=== PATIENT | female | born 1935 ===

== ENCOUNTER 2018-03-24 06:46 | Inpatient (IN) | payer OTHER ==
[~2018-03-24] VITALS: Ht 160 cm; Wt 72.1 kg
--- NOTE | 2018-03-24 06:56 | ED GENERAL ADULT ---
History of Present Illness General Chief Complaint: Altered Mental Status Stated Complaint: ALTERED MENTAL STATUS, HYPOGLYCEMIA Source: patient, old records, EMS, W10 Exam Limitations: no limitations Vital Signs & Intake/Output Vital Signs & Intake/Output Vital Signs Date Time Temp Pulse Resp B/P B/P Pulse O2 O2 Flow FiO2 Mean Ox Delivery Rate 03/24 1047 98.2 59 20 112/74 97 Room Air 03/24 0906 96 Room Air 03/24 0906 59 18 133/60 96 Room Air 03/24 0654 97.3 93 18 145/65 98 Room Air Allergies Coded Allergies: No Known Allergies (03/24/18) Triage Nurses Notes Reviewed? yes HPI: Patient brought in from the group home after being found unresponsive. Patient was in a wheelchair at 3:00 in the morning and was finally convinced to go to bed. Everything was normal at that time. This morning at 6 AM they noticed that she was very hard to arouse and it appeared that she had a left sided weakness. EMS was contacted. Patient's fingerstick was 29. Patient received D10 and her sugar increased. As her sugar increased her symptoms resolved. In route to the hospital she had one vomitus of green bile-like fluid. Patient did receive Lantus last night. Patient has no current complaints. (Francisco Javier MCCAULEY,Nilay Jaeger) Reconcile Medications Cholecalciferol (Vitamin D3) (Vitamin D3) 1,000 UNIT CAPSULE 1 CAP PO Mo VITAMIN SUPPORT (Reported) Docusate Sodium (Colace) 100 MG CAPSULE 1 CAP PO BID STOOL SOFTENER (Reported ) Escitalopram Oxalate (Lexapro) 10 MG TABLET 1 TAB PO DAILY MENTAL HEALTH ( Reported) Furosemide 20 MG TABLET 1 TAB PO Q48 WATER RETENTION (Reported) Furosemide 40 MG TABLET 1 TAB PO Q48 WATER RETENTION (Reported) Insulin Detemir (Levemir Flextouch) 100 UNIT/ML (3 ML) INSULN.PEN 16 UNITS SC QPM DIABETES (Reported) Ipratropium/Albuterol Sulfate (Iprat-Albut 0.5-3(2.5) MG/3 Ml) 0.5 MG-3 MG (2.5 MG BASE)/3 ML AMPUL.NEB 1 INH PO 4 TIMES/DAY BREATHING PROBLEMS (Reported) Metoprolol Tartrate 25 MG TABLET 0.5 TAB PO BID HEART (Reported) Pantoprazole Sodium 40 MG TABLET.DR 1 TAB PO BID GI (Reported) Rosuvastatin Calcium (Crestor) 20 MG TABLET 1 TAB PO QPM CHOLESTEROL ( Reported) (Andrew Tovar DO) Past History Travel History Traveled to [place] past 21 day No Medical History Any Pertinent Medical History? see below for history Cardiovascular: CHF, hypertension Renal: chronic kidney disease Endocrine: diabetes Blood Disorders: anemia Surgical History Surgical History: non-contributory Psychosocial History Tobacco Use: Quit >30 days ago ETOH Use: denies use Illicit Drug Use: denies illicit drug use Family History Hx Contributory? No (Francisco Javier MCCAULEY,Nilay Jaeger) Review of Systems Review of Systems Constitutional: Reports: no symptoms. EENTM: Reports: no symptoms. Respiratory: Reports: no symptoms. Cardiovascular: Reports: no symptoms. GI: Reports: no symptoms. Genitourinary: Reports: no symptoms. Musculoskeletal: Reports: no symptoms. Skin: Reports: no symptoms. Neurological/Psychological: Reports: no symptoms. Hematologic/Endocrine: Reports: no symptoms. Immunologic/Allergic: Reports: no symptoms. All Other Systems: Reviewed and Negative (Francisco Javier MCCAULEY,Nilay Jaeger) Physical Exam Physical Exam General Appearance: well developed/nourished, alert, awake, anxious Head: atraumatic, normal appearance Eyes: Bilateral: PERRL, EOMI. Ears, Nose, Throat: normal pharynx, normal ENT inspection Neck: normal inspection, supple, full range of motion Respiratory: normal breath sounds, chest non-tender, no respiratory distress, lungs clear Cardiovascular: normal peripheral pulses, bradycardia, systolic murmur Gastrointestinal: normal bowel sounds, soft, non-tender, no organomegaly Back: normal inspection Extremities: pedal edema Neurologic/Psych: no motor/sensory deficits, awake, alert Skin: intact, normal color, warm/dry Core Measures ACS in differential dx? Yes CVA/TIA Diagnosis: No Sepsis Present: No Sepsis Focused Exam Completed? No (Francisco Javier MCCAULEY,Nilay Jaeger) Progress Differential Diagnoses I considered the following diagnoses in my evaluation of the patient: [ Hypoglycemia, CVA, electrolyte abnormality, AMI, UTI] Plan of Care: Orders Procedure Date/time Status Heart Healthy Diet 03/24 L Active TROPONIN LEVEL 03/24 1011 Complete EKG 03/24 1011 Active EKG 03/24 0838 Active Telemetry/Customs Broker 03/24 0651 Active URINALYSIS 03/24 651 Active TROPONIN LEVEL 03/24 651 Complete COMPREHENSIVE METABOLIC PANEL 03/24 651 Complete CBC WITHOUT DIFFERENTIAL 03/24 651 Complete EKG 03/24 651 Active Laboratory Tests 03/24/18 1035: Troponin I 0.08 03/24/18 0720: Anion Gap 15, Estimated GFR 21 L, BUN/Creatinine Ratio 26.4 H, Glucose 210 H, Calcium 8.3 L, Total Bilirubin 1.7 H, AST 27, ALT 25, Alkaline Phosphatase 129 H, Troponin I 0.08, Total Protein 7.7, Albumin 3.5, Globulin 4.2, Albumin/ Globulin Ratio 0.8 L, CBC w Diff NO MAN DIFF REQ, RBC 3.28 L, MCV 91.3, MCH 30.4, MCHC 33.3, RDW 18.0 H, MPV 6.7 L, Gran % 85.8 H, Lymphocytes % 5.8 L, Monocytes % 8.2, Eosinophils % 0, Basophils % 0.2, Absolute Granulocytes 5.6, Absolute Lymphocytes 0.4 L, Absolute Monocytes 0.5, Absolute Eosinophils 0, Absolute Basophils 0 Diagnostic Imaging: Viewed by Me: Radiology Read, CT Scan. Discussed w/RAD: Radiology Read, CT Scan. Initial ED EKG: PENDING Hand-Off Endorsed To: Andrew Tovar DO Endorsed Time: 0700 Pending: CT, labs, Xray (Francisco Javier MCCAULEY,Nilay Jaeger) Differential Diagnoses I considered the following diagnoses in my evaluation of the patient: (Andrew Tovar DO) Departure Departure Disposition: STILL A PATIENT Condition: Stable Referrals: Davey Garcia MD (PCP/Family) Departure Forms: Customer Survey General Discharge Information (Nilay Mcintyre MD) Departure Comments CT head IMPRESSION: 1. No acute intracranial abnormalities. No intracranial hemorrhage. No acute infarcts visualized. 2. Mild white matter chronic small vessel ischemic disease. 3. Monckeberg vascular calcifications of the intracranial segments of the internal carotid arteries which may represent the sequela of long-standing diabetes mellitus. 4. Extracranial, mild scattered intravenous gas which may represent iatrogenically introduced intravenous gas. Similar findings are a frequently encountered asymptomatic finding following initiation of peripheral intravenous access. DICTATED BY: Macho Crain MD DATE/TIME DICTATED:03/24/18715 GLOVE FACTORY SEWER:GONZALO DATE/TIME TRANSCRIBED:03/24/18715 CONFIDENTIAL, DO NOT COPY WITHOUT APPROPRIATE AUTHORIZATION. <Electronically signed in Other Vendor System> SIGNED BY: Macho Crain MD 03/24/18725 EKG revealed atrial bigeminy. The patient was seen by her executive asst Dr. Lizama who reviewed EKGs and evaluated the patient personally. He agrees with the interpretation of atrial bigeminy. 10 AM Patient remains asymptomatic. There is no focal weakness. Her symptoms resolved with intravenous glucose. She has a gag reflex and tolerates food without difficulty. Her first troponin was 0.08 will repeat a second troponin and monitor her neurological status if no change she will be discharged back to the SNF. 03/24/18 11:14 AM Patient is pending repeat troponin. She was signed out to Dr. Fierro at 11:14 AM (Andrew Tovar DO) Departure Clinical Impression Primary Impression: Dysrhythmia Qualifiers: Arrhythmia type: unspecified cardiac arrhythmia Qualified Code: I49.9 - Cardiac arrhythmia, unspecified Secondary Impressions: Anasarca, Hypoglycemia Admission Note Spoke With: Dorinda MCCAULEY,Mukesh Documentation of Exam: Documentation of any treatments & extenuating circumstances including Concerns Regarding Discharge (functional status, medication knowledge or non-compliance, living conditions, etc.) that warrant an admission rather than observation: Patient presents after an episode of altered mental status secondary to hypoglycemia. Her evaluation also shows the possibility of an atrial dysrhythmia on EKG. It is unclear if this patient's altered mental status wasn' t fact secondary to hypoglycemia or a dysrhythmia. I do not feel she is a good candidate for outpatient management under the circumstances she could in fact have additional altered mental status episodes placing her at high risk of falling, injury and an inability to follow through with outpatient treatment. I feel she now requires hospitalization for continuous cardiac monitoring, cardiology consultation, consideration of echocardiogram, serial EKGs and troponins and consideration for endocrinology consultation given hypoglycemic episode. If the patient is in fact in atrial fibrillation she will require anticoagulation. Patient's medications should be reviewed and adjusted accordingly. Given this patient's advanced age and medical comorbidities I feel she'll require a multiple day hospitalization. (Sri MCCAULEY,Andrew Navarro) Critical Care Note Critical Care Note Critical Care Time: non-applicable (Francisco Javier MCCAULEY,Nilay Jaeger)
--- NOTE | 2018-03-24 07:26 | CT SCAN REPORT ---
EXAMINATION: CT HEAD WITHOUT CONTRAST CLINICAL INFORMATION: Left-sided weakness. Resolved. Hypoglycemic. COMPARISON: None TECHNIQUE: Contiguous axial imaging was performed from the skull base to vertex without intravenous administration of contrast. DLP: 681 mGy-cm FINDINGS: Moderate diffuse commensurate prominence of ventricles and sulci is noted. Mild patchy periventricular white matter hypodensities are visualized and are most consistent with chronic small vessel ischemic changes. No intracranial hemorrhage, tumors or acute infarcts are visualized. Punctate, benign calcification is noted within the right globus pallidus. Partial visualization is made of a 1.5 cm diameter rounded focus within the right maxillary sinus most likely representing partial visualization of mucosal retention cyst. Scattered gas is present in the right infratemporal fossa region and right temporal region and may represent benign iatrogenic intravenous gas. Bilateral ocular lens extractions are visualized. The mastoid air cells and middle ear cavities are clear. Tram track like Monckeberg type vascular calcifications are noted in the cavernous portion of the internal carotid arteries IMPRESSION: 1. No acute intracranial abnormalities. No intracranial hemorrhage. No acute infarcts visualized. 2. Mild white matter chronic small vessel ischemic disease. 3. Monckeberg vascular calcifications of the intracranial segments of the internal carotid arteries which may represent the sequela of long-standing diabetes mellitus. 4. Extracranial, mild scattered intravenous gas which may represent iatrogenically introduced intravenous gas. Similar findings are a frequently encountered asymptomatic finding following initiation of peripheral intravenous access.
[2018-03-24 07:29] LABS: ABSOLUTE BASOPHIL COUNT 0 /CUMM (0.0-0.2); ABSOLUTE EOSINOPHIL COUNT 0 /CUMM (0.0-0.7); ABSOLUTE GRANULOCYTE CT 5.6 /CUMM (1.4-6.5); ABSOLUTE LYMPH COUNT 0.4 /CUMM (1.2-3.4); ABSOLUTE MONOCYTE COUNT 0.5 /CUMM (0.10-0.60); BASOPHIL % 0.2 % (0.0-2.0); EOSINOPHIL % 0 % (0-5); GRANULOCYTE % 85.8 % (42.2-75.2); MEAN CORPUSCULAR HGB 30.4 PG (27.0-31.0); MEAN CORPUSCULAR HGB CONC 33.3 G/DL (33.0-37.0); MEAN CORPUSCULAR VOLUME 91.3 FL (81.0-99.0); MEAN PLATELET VOLUME 6.7 FL (7.4-10.4); PLATELET COUNT 189 /CUMM (130-400); RED BLOOD CELL CT 3.28 /CUMM (4.20-5.40); WHITE BLOOD CELL COUNT 6.5 /CUMM (4.8-10.8)
[2018-03-24] MEDS ORDERED: VITAMIN D31000 UNI1 PO (07:49)
[2018-03-24] MEDS ORDERED: METOPROLOL TART25 M1 PO (07:50)
[2018-03-24] MEDS ORDERED: COLACE100 M1 PO (07:50)
[2018-03-24] MEDS ORDERED: CRESTOR20 M2 PO (07:51)
[2018-03-24] MEDS ORDERED: PANTOPRAZOLE SO40 M1 PO (07:51)
[2018-03-24] MEDS ORDERED: LEVEMIR FL100 UNIT/1 SC (07:53)
[2018-03-24] MEDS ORDERED: IPRAT-ALBUT 0.5-3 ML PO (07:54)
[2018-03-24] MEDS ORDERED: LEXAPRO10 M1 PO (07:55)
[2018-03-24] MEDS ORDERED: FUROSEMIDE20 M1 PO (07:56)
[2018-03-24] MEDS ORDERED: FUROSEMIDE40 M1 PO (07:57)
--- NOTE | 2018-03-24 08:02 | RADIOLOGY REPORT ---
EXAMINATION: XR PORTABLE CHEST CLINICAL INFORMATION: Dyspnea COMPARISON: None TECHNIQUE: Portable frontal view of the chest was obtained. FINDINGS: Cardiac leads overlie the chest. Median sternotomy wires appear intact. The lungs are well expanded. There is diffuse bronchial wall thickening with streaky midlung opacities. No pleural effusion or pneumothorax. The cardiac silhouette is prominent. Aortic calcifications noted. Hardware present in the proximal right humerus. IMPRESSION: Bronchial wall thickening can be seen with a small airways process such as asthma or atypical/viral infection. Streaky bilateral mid lung opacities favor atelectasis. There is no dense consolidation seen.
--- NOTE | 2018-03-24 12:44 | History & Physical ---
Markus MCCAULEY,Yas 03/24/18 1243: General Information and HPI MD Statement: I have seen and personally examined KVNG DIAZ and documented this H&P. The patient is a 83 year old F who presented with a patient stated chief complaint of [unresponsiveness, low BG]. Source of Information: old records, W10, ER notes Exam Limitations: poor historian History of Present Illness: 83 YO F assisted resident [facility] for unresponsiveness/change in mental status with inability to communicate, mumbling and possible left sided weakness when staff where trying to arouse her this morning at 6am. Patient is a poor historian and could not contribute much to the history, she can't really remember the events. According to the W10 and ER notes, pt was in her usual state of health last yesterday and was put to bed early this morning at 3am without any complaints. She had recieved her usual 16 units of levemir prior to going to bed. EMS was called and fingerstick done at the time came back at 29 so she was given D10 with improvements in symptoms. She had one epidosed of billous vomitus enroute. In the ER, she had noted to have no residual symptoms. She recieved D50 in the ER. BG came up to 210. She denies fever, SOB, CP, headaches, blurry vision or recent or frequent falls but has a chronic dry cough. She ambulates with a cane and sometimes a walker. Blood work results on 03/17/18 done as outpatient showed hypoglycemia with BG of 36. She does not follow an ground water pump installer. PMH-CHF, CKD, HTN, T2 DM, recent GI bleed with anemia, former smoker Allergies/Medications Allergies: Coded Allergies: No Known Allergies (03/24/18) Home Med list Cholecalciferol (Vitamin D3) (Vitamin D3) 1,000 UNIT CAPSULE 1 CAP PO Mo VITAMIN SUPPORT (Reported) Docusate Sodium (Colace) 100 MG CAPSULE 1 CAP PO BID STOOL SOFTENER (Reported ) Escitalopram Oxalate (Lexapro) 10 MG TABLET 1 TAB PO DAILY MENTAL HEALTH ( Reported) Furosemide 20 MG TABLET 1 TAB PO Q48 WATER RETENTION (Reported) Insulin Detemir (Levemir Flextouch) 100 UNIT/ML (3 ML) INSULN.PEN 16 UNITS SC QPM DIABETES (Reported) Ipratropium/Albuterol Sulfate (Iprat-Albut 0.5-3(2.5) MG/3 Ml) 0.5 MG-3 MG (2.5 MG BASE)/3 ML AMPUL.NEB 1 INH PO 4 TIMES/DAY BREATHING PROBLEMS (Reported) Metoprolol Tartrate 25 MG TABLET 0.5 TAB PO BID HEART (Reported) Pantoprazole Sodium 40 MG TABLET.DR 1 TAB PO BID GI (Reported) Rosuvastatin Calcium (Crestor) 20 MG TABLET 1 TAB PO QPM CHOLESTEROL ( Reported) Compliance With Home Meds: GOOD Past History Travel History Traveled to [place] past 21 day No Medical History Neurological: NONE EENT: NONE Cardiovascular: CHF, hypertension Respiratory: NONE Gastrointestinal: NONE Hepatic: NONE Renal: chronic kidney disease Musculoskeletal: NONE Psychiatric: NONE Endocrine: diabetes Blood Disorders: anemia Cancer(s): NONE SCIENTIFIC PHOTOGRAPHER/Reproductive: NONE Surgical History Surgical History: non-contributory Past Family/Social History Family History Relations & Conditions if any Relation not specified for: *No pertinent family history Psychosocial History Where do you live? [facility] ETOH Use: denies use Illicit Drug Use: denies illicit drug use Functional Ability ADLs Needs Assist: dressing, eating, toileting, bathing. Ambulation: cane, walker IADLs Needs Assist: shopping, housework, finances, telephone, transportation, medication admin. Review of Systems Review of Systems Constitutional: Denies: fever, malaise, weakness. Cardiovascular: Denies: chest pain, palpitations. Respiratory: Reports: cough. Denies: short of breath, wheezing. GI: Reports: vomiting. Genitourinary: Denies: dysuria. Exam & Diagnostic Data Last 24 Hrs of Vital Signs/I&O Vital Signs Date Time Temp Pulse Resp B/P B/P Pulse O2 O2 Flow FiO2 Mean Ox Delivery Rate 03/24 1300 96.1 66 18 114/88 94 Room Air 03/24 1047 98.2 59 20 112/74 97 Room Air 03/24 0906 96 Room Air 03/24 0906 59 18 133/60 96 Room Air 03/24 0654 97.3 93 18 145/65 98 Room Air Intake & Output 03/24 1600 03/24 0800 03/24 0000 Intake Total Output Total Balance Patient 140 lb Weight Physical Exam General Appearance Alert, Oriented X3, Cooperative, No Acute Distress Skin Excoriation on bilaterial arms, small healing wound on the anterior olson, scattered erythma on bilateral LE Skin Temp/Moisture Exam: Cool/Dry Sepsis Skin Exam (color): Normal for Ethnicity HEENT Mucous Membr. moist/pink Cardiovascular Regular Rate, Normal S1, Normal S2 Lungs scattered crackles bilaterraly alexis anteriorly Abdomen mildly swollen possibly due to ascites Neurological Normal Speech, Normal Tone Extremities 3+ pedel edema up to the thighs Last 24 Hrs of Labs/[place]rose: Laboratory Tests 03/24/18 1300: Urinalysis LIGHT H, Urine Color YEL, Urine Clarity CLEAR, Urine pH 5.5, Ur Specific [place] 1.025, Urine Protein 30 H, Urine Ketones NEG, Urine Nitrite NEG, Urine Bilirubin NEG, Urine Urobilinogen 1.0, Ur Leukocyte Esterase NEG, Ur Microscopic SEDIMENT EXAMINED, Urine RBC 1-3, Urine WBC 1-3 H, Ur Epithelial Cells FEW, Urine Bacteria FEW H, Urine Hemoglobin NEG, Urine Glucose NEG 03/24/18 1035: Troponin I 0.08 03/24/18 0720: Anion Gap 15, Estimated GFR 21 L, BUN/Creatinine Ratio 26.4 H, Glucose 210 H, Calcium 8.3 L, Total Bilirubin 1.7 H, AST 27, ALT 25, Alkaline Phosphatase 129 H, Troponin I 0.08, Total Protein 7.7, Albumin 3.5, Globulin 4.2, Albumin/ Globulin Ratio 0.8 L, CBC w Diff NO MAN DIFF REQ, RBC 3.28 L, MCV 91.3, MCH 30.4, MCHC 33.3, RDW 18.0 H, MPV 6.7 L, Gran % 85.8 H, Lymphocytes % 5.8 L, Monocytes % 8.2, Eosinophils % 0, Basophils % 0.2, Absolute Granulocytes 5.6, Absolute Lymphocytes 0.4 L, Absolute Monocytes 0.5, Absolute Eosinophils 0, Absolute Basophils 0 Diagnostic Data EKG Results Atrial Bigeminy, PACS, flattened T waves, rate 60, QTC 508 CXR Results Bronchial wall thickening can be seen with a small airways process such as asthma or atypical/viral infection. Streaky bilateral mid lung opacities favor atelectasis. There is no dense consolidation seen. Assessment/Plan Assessment: 83 YO F assisted resident [facility] for unresponsiveness/change in mental status with inability to communicate, mumbling and possible left sided weakness when staff where trying to arouse her this morning at 6am. Patient is a poor historian. She recieved 16 units of levemir last night and her BG this morning was 29. Symptoms resolved following administration of D10. She denies fever, SOB , CP, headaches, blurry vision or recent or frequent falls. She ambulates with a cane and sometimes a walker. Assessment 1. AMS likely 2/2 Hypoglycemia 2. Atrial Bigeminy-unclear etiology 3. CHF with anasarca 4. Mild Hyperkalemia 5. Mild normocytic anemia 2/2 Hx of recent GI Bleed 6. VICTORIA on CKD vs worsening CKD 7. T2 DM on insulin 8. HTN 9. Hx of CAD s/p bypas and stent placement 10. Bronchial wall thickening on CXR-asthma vs atypical viral infection Plan Admit to the Telemetry floor for monitoring 1. AMS 2/2 hypoglycemia -hypoglycemia of 29 at assisted. Symptoms fully resolved s/p administration of dextrose; BG now stable at 210 -Hold levemir insulin (pt receives 16 IU at night) which is likely too high compared to her oral intake -Endocrinology consult for insulin adjustment; blood glucose does not need to be tightly controlled for patients with advanced age/multiple co-morbidities. -Fingerstick glucose TIDAC/HS-watch for recurrent hypoglycemia -Hold off IVF dextrose due to anasarca -Encourage good oral intake -CT head neg for stroke; UA, CXR neg for acute infection 2. Atrial Bigeminy on EKG r/o Afib -EKG revealed atrial bigeminy with PACs; hence tele monitoring -The patient was seen by her poker dealer Dr. Lizama in the ER who reviewed her EKGs and evaluated the patient personally. He agrees with the interpretation of atrial bigeminy -Will follow his recommendations; input appreciated -Will obtain an ECHO to r/o structural abnormalities -Trend trops to r/o ACS 3. VICTORIA on CKD -Cr 2.2 today-possibly due to poor oral intake -Recent baseline Cr has been around 1.8 -Will hold off IV hydration due to anasraca -Repeat BEP daily to trend -Encourage oral intake for hydration 4. CHF with anasarca -Patient is stable; CXR does not show fluid overload;No SOB, or CP -Follow cardio recs on lasix administration -Will repeat CXR in AM to re-evaluate -Encourage early mobilization-PT consult placed 5. T2 DM -Hold off levemir for now-pt is advanced age with multiple co-morbidities and hence will benefit form less strict BG control to reduce risk of morbity and mortality -Check Fingersticks TIDAC and HS -Check Hb A1C -Endocrine consult placed to help adjust insulin 6. HTN, CAD -Stable -Continue home dose of metoprolol 12.5mg BID and crestor 20mg daily 7. Mild Hyperkalemia -Patient takes K+ supplementation 10 meq daily at assisted -Hold K+ supplement for now -Repeat BEP in AM 8. Recent Hx of GI and normocytic anemia -Daily CBC monitoring -Check guaic -Continue Pantoprazole 40mg BID 9. Bronchial wall thickening on CXR-asthma vs atypical viral infection -No obvious signs of infection -Tessalon perls and robitussin for chronic dry cough -TRC/ Nebs -NC O2 as needed ALPS and SC heprain for DVT ppx Diabetic Diet DNR/ DNI per advanced directive paperwork As Ranked By This Provider Problem List: 1. Dysrhythmia Qualifiers Arrhythmia type: unspecified cardiac arrhythmia Qualified Code: I49.9 - Cardiac arrhythmia, unspecified 2. Hypoglycemia 3. Anasarca Core Measures/Misc (08/16) Acute Coronary Syndrome ACS Diagnosis: No Congestive Heart Failure Congestive Heart Failure Diagnosis Yes Cerebrovascular Accident CVA/TIA Diagnosis: No VTE (View Protocol) VTE Risk Factors CHF or Resp Failure No Mechanical VTE Prophylaxis d/t N/A MechProphylax Ordered No VTE Pharm Prophylaxis d/t NA PharmProphylax ordered Sepsis (View protocol) Sepsis Present: No Resident Review Statement Resident Statement: examined this patient Other Findings: see HPI Namita Fine 03/24/18 1353: Attending MD Review Statement Attending Statement Attending MD Statement: examined this patient, discuss w/resident/PA/CORPORATE SAFETY COORDINATOR, agreed w/resident/PA/CORPORATE SAFETY COORDINATOR, discussed with family, reviewed EMR data (avail), discussed with nursing, discussed with case mgmt, reviewed images, amended to note Attending Assessment/Plan: Patient poor historian. PMH of DM, CHF, HTN, CKD Obtained from EMS and ER. Patient c/o cough and found lethargic which improved after administration of D 10 likely from hypoglyecmia. Recheck CBG 30s and givne D 50 one dsoe again. Chest xray with bronchitis. EKG with multile PVC and flattened t waves on V4-v6. Vitals BP 114/88 Spo2 98 on 2l nasa cannula. RR [address] head negative. Cr 2.2 Patient being admitted to telemetry for abnormal EKG r/o NE. Serial cardiac enzymes. Cardiology consult. ECHO as per cardiology. Hypoglycemia Endocrinology consult. Hold long acting insulin for now. No need for tight control to prevent hypoglycemia epsidoes in future. Frequent monitoring CBGs. Anasarca/CHF/CKD: Monitor for fluid overload. No pulmonary edema. No pleural effusions, more atelectasis.
--- NOTE | 2018-03-24 15:26 | Cons- Cardiology ---
General Information and HPI Consulting Request Date of Consult: 03/24/18 Requested By: Namita Fine MD History of Present Illness: Martha is an 83 year old female with history of hypertension, diabetes and congestive heart failure. She was brought to the ER for evaluation of mental status changes. As such, she cannot offer a cogent history but denies chest discomfort, shortness of breath, lightheadedness or palpitations. The patient vomited on her way to the ER. She does have swollen legs with erythema and an ECG that shows atrial bigeminy with small P waves. It should be noted that this patient had a blood glucose by fingerstick of 29 and was given D10 with some improvement in her blood glucose and mental status. At baseline this patient can walk with a cane or walker. Allergies/Medications Allergies: Coded Allergies: No Known Allergies (03/24/18) Home Med List: Cholecalciferol (Vitamin D3) (Vitamin D3) 1,000 UNIT CAPSULE 1 CAP PO Mo VITAMIN SUPPORT (Reported) Docusate Sodium (Colace) 100 MG CAPSULE 1 CAP PO BID STOOL SOFTENER (Reported ) Escitalopram Oxalate (Lexapro) 10 MG TABLET 1 TAB PO DAILY MENTAL HEALTH ( Reported) Furosemide 20 MG TABLET 1 TAB PO Q48 WATER RETENTION (Reported) Insulin Detemir (Levemir Flextouch) 100 UNIT/ML (3 ML) INSULN.PEN 16 UNITS SC QPM DIABETES (Reported) Ipratropium/Albuterol Sulfate (Iprat-Albut 0.5-3(2.5) MG/3 Ml) 0.5 MG-3 MG (2.5 MG BASE)/3 ML AMPUL.NEB 1 INH PO 4 TIMES/DAY BREATHING PROBLEMS (Reported) Metoprolol Tartrate 25 MG TABLET 0.5 TAB PO BID HEART (Reported) Pantoprazole Sodium 40 MG TABLET.DR 1 TAB PO BID GI (Reported) Rosuvastatin Calcium (Crestor) 20 MG TABLET 1 TAB PO QPM CHOLESTEROL ( Reported) Review of Systems Review of Systems: A review of systems is unremarkable other than the above. Past History Travel History Traveled to [place] past 21 day No Medical History Neurological: NONE EENT: NONE Cardiovascular: CHF, hypertension Respiratory: NONE Gastrointestinal: NONE Hepatic: NONE Renal: chronic kidney disease Musculoskeletal: NONE Psychiatric: NONE Endocrine: diabetes Blood Disorders: anemia Cancer(s): NONE STOCK ROOM MANAGER/Reproductive: NONE Surgical History Surgical History: non-contributory Family History Relations & Conditions If Any: Relation not specified for: *No pertinent family history Psychosocial History Where Do You Live? Retirement Facility ETOH Use: denies use Illicit Drug Use: denies illicit drug use Functional Ability ADLs Needs Assist: dressing, eating, toileting, bathing. Ambulation: cane, walker IADLs Needs Assist: shopping, housework, finances, telephone, transportation, medication admin. Exam & Diagnostic Data Vital Signs and I&O Vital Signs Date Time Temp Pulse Resp B/P B/P Pulse O2 O2 Flow FiO2 Mean Ox Delivery Rate 03/24 1329 95.2 18 97 Nasal 2.0L Cannula 03/24 1300 96.1 66 18 114/88 94 Room Air 03/24 1047 98.2 59 20 112/74 97 Room Air 03/24 0906 96 Room Air 03/24 0906 59 18 133/60 96 Room Air 03/24 0654 97.3 93 18 145/65 98 Room Air Intake & Output 03/24 1600 03/24 0800 03/24 0000 03/23 1600 03/23 0800 03/23 0000 Intake Total Output Total Balance Patient 140 lb Weight Physical Exam: General: WD/WN female in NAD; awake and responsive HEENT: NC/AT, PERRL, EOMI Neck: no JVD, no carotid bruit Heart: irregular Lungs: clear bilaterally ABdomen: firm, NT, +ve bowel sounds Extremities: 2+ bilateral leg edema with erythema Assessment/Plan Assessment/Plan * This patient has had multiple ECG's which show an irregular rhythm with very small P waves. I suspect she has a sinus rhythm with PAC's and at times atrial bigeminy although paroxysmal atrial fibrillation is a concern. I would like this patient monitored on telemetry for now. * This patient also has bilateral leg edema in the setting of mild renal insufficiency. Begin Lasix 40mg IV BID with careful monitoring of her BUN, creatinine and potassium. Obtain an echocardiogram to assess her RV and LV contractility. Continue Metoprolol, aspirin and a statin as previously prescribed. * Check a TSH and free T4. Consult Acknowledgment - Thank you for your consult request.
--- NOTE | 2018-03-24 15:59 | Cons- Endocrinology ---
General Information and HPI Consulting Request Date of Consult: 03/24/18 Requested By: medical team Reason for Consult: Hypoglycemia Source of Information: patient, old records Exam Limitations: poor historian History of Present Illness: This 83-year-old woman with a history of diabetes mellitus type 2 and chronic kidney disease was brought in by ambulance to the emergency room after experiencing a low blood sugar. Apparently the ambulance was called because the patient became unresponsive in the airplane refueler hours. She was given some D50 with improvement. She did have an episode of vomiting. The patient is on 16 units of Levemir once a day given in the [facility] at [facility] Review of the records in the [facility] reveal that the patient did have a previous low sugar of 36 on March 17 at 9:30 AM. This blood was drawn when she was in the [facility]. On March 08 the patient's sugar was 102 at the lab at [facility] also on blood drawn from the [facility]. The patient has a past history of congestive heart failure hypertension. She is not on any other medication for diabetes at the [facility] other than her insulin. Allergies/Medications Allergies: Coded Allergies: No Known Allergies (03/24/18) Home Med List: Cholecalciferol (Vitamin D3) (Vitamin D3) 1,000 UNIT CAPSULE 1 CAP PO Mo VITAMIN SUPPORT (Reported) Docusate Sodium (Colace) 100 MG CAPSULE 1 CAP PO BID STOOL SOFTENER (Reported ) Escitalopram Oxalate (Lexapro) 10 MG TABLET 1 TAB PO DAILY MENTAL HEALTH ( Reported) Furosemide 20 MG TABLET 1 TAB PO Q48 WATER RETENTION (Reported) Insulin Detemir (Levemir Flextouch) 100 UNIT/ML (3 ML) INSULN.PEN 16 UNITS SC QPM DIABETES (Reported) Ipratropium/Albuterol Sulfate (Iprat-Albut 0.5-3(2.5) MG/3 Ml) 0.5 MG-3 MG (2.5 MG BASE)/3 ML AMPUL.NEB 1 INH PO 4 TIMES/DAY BREATHING PROBLEMS (Reported) Metoprolol Tartrate 25 MG TABLET 0.5 TAB PO BID HEART (Reported) Pantoprazole Sodium 40 MG TABLET.DR 1 TAB PO BID GI (Reported) Rosuvastatin Calcium (Crestor) 20 MG TABLET 1 TAB PO QPM CHOLESTEROL ( Reported) Current Medications: Current Medications Sig/Jaylon Start time Last Medication Dose Route Stop Time Status Admin Acetaminophen 650 MG Q6P PRN 03/24 1415 AC PO Aspirin 81 MG DAILY 03/24 1555 AC PO Atorvastatin Calcium 80 MG 1700 03/24 1700 AC PO Benzonatate 100 MG TID 03/24 1509 AC PO Cholecalciferol 1,000 IU DAILY 03/25 0900 AC PO Dextrose 25 GM ONCE ONE 03/24 0700 DC 03/24 IV 03/24 0701 0653 Docusate Sodium 100 MG BID 03/24 2100 AC PO Docusate Sodium 100 MG BID 03/24 2100 CAN PO Escitalopram Oxalate 10 MG DAILY 03/25 09 AC PO Furosemide 40 MG DAILY 03/24 1528 AC IV Heparin Sodium 5,000 UNIT Q8 03/24 1421 AC (Porcine) SC Metoprolol Tartrate 12.5 MG BID 03/24 2100 AC PO Omeprazole 40 MG BID 03/24 2100 AC PO Review of Systems Review of Systems Constitutional: Reports: no symptoms. Comments Devora is confused and does not remember the events of today. 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 [facility] Smoking Status: Never Smoked ETOH Use: denies use Illicit Drug Use: denies illicit drug use Functional Ability ADLs Needs Assist: dressing, eating, toileting, bathing. Ambulation: cane, walker IADLs Needs Assist: shopping, housework, finances, telephone, transportation, medication admin. Exam & Diagnostic Data Last 24 Hrs of Vital Signs/I&O Vital Signs Date Time Temp Pulse Resp B/P B/P Pulse O2 O2 Flow FiO2 Mean Ox Delivery Rate 03/24 1329 95.2 18 97 Nasal 2.0L Cannula 03/24 1300 96.1 66 18 114/88 94 Room Air 03/24 1047 98.2 59 20 112/74 97 Room Air 03/24 0906 96 Room Air 03/24 0906 59 18 133/60 96 Room Air 03/24 0654 97.3 93 18 145/65 98 Room Air Intake & Output 03/24 1600 03/24 0800 03/24 0000 Intake Total Output Total Balance Patient 140 lb Weight Vital Signs Date Time Temp Pulse Resp B/P B/P Pulse O2 O2 Flow FiO2 Mean Ox Delivery Rate 03/24 1329 95.2 18 97 Nasal 2.0L Cannula 03/24 1300 96.1 66 18 114/88 94 Room Air 03/24 1047 98.2 59 20 112/74 97 Room Air 03/24 0906 96 Room Air 03/24 0906 59 18 133/60 96 Room Air 03/24 0654 97.3 93 18 145/65 98 Room Air Intake & Output 03/24 1600 03/24 0800 03/24 0000 Intake Total Output Total Balance Patient 140 lb Weight Physical Exam General Appearance: alert, awake, comfortable, confused Head: normal appearance Eyes: Bilateral: normal appearance. Respiratory: normal breath sounds Cardiovascular: extra beats Gastrointestinal: normal bowel sounds, soft Extremities: swelling Labs/Ambrose Results: Laboratory Tests 03/24 03/24 1300 1035 Chemistry Troponin I (< 0.11 ng/ml) 0.08 TSH (0.270 - 4.200 uIU/mL) Pending Thyroxine (T4) (4.5 - 10.9 ug/dL) Pending Urines Urinalysis LIGHT H Urine Color (YEL,AMB,STR) YEL Urine Clarity (CLEAR) CLEAR Urine pH (5.0 - 8.0) 5.5 Ur Specific [place] (1.001 - 1.035) 1.025 Urine Protein (NEG,<30 MG/DL) 30 H Urine Ketones (NEG) NEG Urine Nitrite (NEG) NEG Urine Bilirubin (NEG) NEG Urine Urobilinogen (0.1 - 1.0 EU/dl) 1.0 Ur Leukocyte Esterase (NEG) NEG Ur Microscopic SEDIMENT EXAMINED Urine RBC (0 - 5 /HPF) 1-3 Urine WBC (0 - 2 /HPF) 1-3 H Ur Epithelial Cells (NONE,FEW) FEW Urine Bacteria (NEG/NONE) FEW H Urine Hemoglobin (NEG) NEG Urine Glucose (N MG/DL) NEG 03/24 0720 Chemistry Sodium (137 - 145 mmol/L) 137 Potassium (3.5 - 5.1 mmol/L) 5.2 H Chloride (98 - 107 mmol/L) 102 Carbon Dioxide (22 - 30 mmol/L) 20 L Anion Gap (5 - 16) 15 BUN (7 - 17 mg/dL) 58 H Creatinine (0.5 - 1.0 mg/dL) 2.2 H Estimated GFR (>60 ml/min) 21 L BUN/Creatinine Ratio (7 - 25 %) 26.4 H Glucose (65 - 99 mg/dL) 210 H Hemoglobin A1c (4.2 - 5.8 %) Pending Calcium (8.4 - 10.2 mg/dL) 8.3 L Total Bilirubin (0.2 - 1.3 mg/dL) 1.7 H AST (14 - 36 U/L) 27 ALT (9 - 52 U/L) 25 Alkaline Phosphatase (<127 U/L) 129 H Troponin I (< 0.11 ng/ml) 0.08 Total Protein (6.3 - 8.2 g/dL) 7.7 Albumin (3.5 - 5.0 g/dL) 3.5 Globulin (1.9 - 4.2 gm/dL) 4.2 Albumin/Globulin Ratio (1.1 - 2.2 %) 0.8 L Hematology CBC w Diff NO MAN DIFF REQ WBC (4.8 - 10.8 /CUMM) 6.5 RBC (4.20 - 5.40 /CUMM) 3.28 L Hgb (12.0 - 16.0 G/DL) 10.0 L Hct (37 - 47 %) 30.0 L MCV (81.0 - 99.0 FL) 91.3 MCH (27.0 - 31.0 PG) 30.4 MCHC (33.0 - 37.0 G/DL) 33.3 RDW (11.5 - 14.5 %) 18.0 H Plt Count (130 - 400 /CUMM) 189 MPV (7.4 - 10.4 FL) 6.7 L Gran % (42.2 - 75.2 %) 85.8 H Lymphocytes % (20.5 - 51.1 %) 5.8 L Monocytes % (1.7 - 9.3 %) 8.2 Eosinophils % (0 - 5 %) 0 Basophils % (0.0 - 2.0 %) 0.2 Absolute Granulocytes (1.4 - 6.5 /CUMM) 5.6 Absolute Lymphocytes (1.2 - 3.4 /CUMM) 0.4 L Absolute Monocytes (0.10 - 0.60 /CUMM) 0.5 Absolute Eosinophils (0.0 - 0.7 /CUMM) 0 Absolute Basophils (0.0 - 0.2 /CUMM) 0 Assessment/Plan Assessment/Plan This patient developed severe hypoglycemia while on Levemir 16 units daily given in the evening for control of diabetes. Patient has evidence of chronic kidney disease. She also has a history of congestive heart failure and hypertension. And her age group we would not attempt to achieve tight control of her sugar because low blood sugar is so dangerous to her. I agree with holding the patient's insulin and just monitoring her blood sugars at this time on a diabetic diet. I would also check the patient's thyroid function tests including a free T4 and TSH. We should add a cortisol level to the blood that was drawn earlier this morning as well. We should also check the patient's hemoglobin A1c. We should check the patient sugars 4 times a day before meals and at bedtime while on her diet alone. Consult Acknowledgment - Thank you for your consult request.
[2018-03-25 06:41] VITALS: BP 100/50
--- NOTE | 2018-03-25 07:41 | PN- Housestaff ---
See Addendum Markus MCCAULEY,Yas 03/25/18 0740: Subjective Follow-up For: 1. AMS likely 2/2 Hypoglycemia in T2 DM 2. Atrial Bigeminy-unclear etiology r/o PAF 3. CHF with anasarca 4. Mild Hyperkalemia 5. VICTORIA on CKD vs worsening CKD 6. T2 DM Complaints: no complaints Subjective: Sitting up in bed having breakfast. denies Chest pain, SOB, or weakness. Cough is improving. Review of Systems Constitutional: Denies: diaphoresis, fever, weakness. Objective Last 24 Hrs of Vital Signs/I&O Vital Signs Date Time Temp Pulse Resp B/P B/P Pulse O2 O2 Flow FiO2 Mean Ox Delivery Rate 03/25 0641 97.6 67 20 100/50 100 Nasal 1.0L Cannula 03/24 2229 97.5 64 18 97 Nasal 1.0L Cannula 03/24 2058 63 122/68 03/24 1832 Nasal 1.0L Cannula 03/24 1500 92 Nasal 2.0L Cannula 03/24 1329 95.2 18 97 Nasal 2.0L Cannula 03/24 1300 96.1 66 18 114/88 94 Room Air 03/24 1047 98.2 59 20 112/74 97 Room Air 03/24 0906 96 Room Air 03/24 0906 59 18 133/60 96 Room Air Intake & Output 03/25 1600 03/25 0800 03/25 0000 Intake Total 120 260 Output Total Balance 120 260 Intake, Oral 120 260 Patient 167 lb Weight Physical Exam General Appearance: Alert, Cooperative, No Acute Distress HEENT: Mucous Membr. moist/pink Cardiovascular: Regular Rate, Normal S1, Normal S2 Lungs: Improved air entry bilaterally with diminished crackles compared to last exam Abdomen: soft, reduced abd swelling Extremities: 2+ pedal edema bilaterally Current Medications: Current Medications Sig/Jaylon Start time Last Medication Dose Route Stop Time Status Admin Acetaminophen 650 MG Q6P PRN 03/24 1415 AC PO Albuterol Sulfate 3 ML Q4P PRN 03/24 1845 AC INH Aspirin 81 MG DAILY 03/24 1555 AC 03/24 PO 1640 Atorvastatin Calcium 80 MG 1700 03/24 1700 AC 03/24 PO 1640 Benzonatate 100 MG TID 03/24 1509 AC 03/24 PO 1640 Cholecalciferol 1,000 IU DAILY 03/25 0900 AC PO Docusate Sodium 100 MG BID 03/24 2100 AC PO Docusate Sodium 100 MG BID 03/24 2100 CAN PO Escitalopram Oxalate 10 MG DAILY 03/25 0900 AC PO Furosemide 40 MG DAILY 03/24 1528 AC 03/24 IV 1640 Guaifenesin 10 ML Q6P PRN 03/24 1715 AC PO Heparin Sodium 5,000 UNIT Q8 03/24 1421 AC 03/25 (Porcine) SC 0515 Metoprolol Tartrate 12.5 MG BID 03/24 2100 AC PO Omeprazole 40 MG BID 03/24 2100 AC PO Last 24 Hrs of Lab/Ambrose Results Last 24 Hrs of Labs/Mics: Laboratory Tests 03/25/18 0638: Anion Gap 11, Estimated GFR 19 L, BUN/Creatinine Ratio 25.8 H, TSH Pending, Free T4 Pending, Cortisol AM Sample Pending, CBC w Diff Pending, WBC Pending, RBC Pending, Hgb Pending, Hct Pending, MCV Pending, MCH Pending, MCHC Pending, RDW Pending, Plt Count Pending, MPV Pending 03/24/18 1725: Troponin I 0.08 03/24/18 1300: Urinalysis LIGHT H, Urine Color YEL, Urine Clarity CLEAR, Urine pH 5.5, Ur Specific [place] 1.025, Urine Protein 30 H, Urine Ketones NEG, Urine Nitrite NEG, Urine Bilirubin NEG, Urine Urobilinogen 1.0, Ur Leukocyte Esterase NEG, Ur Microscopic SEDIMENT EXAMINED, Urine RBC 1-3, Urine WBC 1-3 H, Ur Epithelial Cells FEW, Urine Bacteria FEW H, Urine Hemoglobin NEG, Urine Glucose NEG 03/24/18 1035: Troponin I 0.08, TSH 7.060 H, Thyroxine (T4) 7.1 Lines/Diet/Fluids Lines: peripheral lines Assessment/Plan Assessment: 83 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 Patient is a poor historian. She recieved 16 units of levemir last night and her BG this morning was 29. Symptoms resolved following administration of D10. She denies fever, SOB , CP, headaches, blurry vision or recent or frequent falls. She ambulates with a cane and sometimes a walker. Assessment 1. AMS likely 2/2 Hypoglycemia 2. Atrial Bigeminy-unclear etiology 3. CHF with anasarca 4. Mild Hyperkalemia 5. Mild normocytic anemia 2/2 Hx of recent GI Bleed 6. VICTORIA on CKD vs worsening CKD 7. T2 DM on insulin 8. HTN 9. Hx of CAD s/p bypas and stent placement 10. Bronchial wall thickening on CXR-asthma vs atypical viral infection Plan Admited to the Telemetry floor for monitoring 1. AMS 2/2 hypoglycemia-Resolved -Levemir was discontinued and her BG have remained stable (101-201 in past 24 hrs). Patient will be managed with diet only for now -Continue fingerstick glucose TIDAC/HS-watch for recurrent hypoglycemia -Encourage good oral intake -Endocrinology input appreciated 2. Atrial Bigeminy on EKG r/o Afib -Admission EKG revealed atrial bigeminy with PACs with concern for PAF -Cardiology following -F/U ECHO to r/o structural abnormalities -ACS ruled out. Trops have remained negative x [address] changes on EKG. 3. VICTORIA on CKD -Worsening; likely due to lasix administration; Cr bumped to 2.4 today -Recent baseline Cr has been around 1.8 -Will hold off IV hydration due to anasarca; Encourage oral intake for hydration -Repeat BEP daily to trend 4. CHF with anasarca -Repeat CXR today to re-evaluate for any changes. There is no obvious clinical signs of fluid overlaoad at this time -There is improvement in edema with lasix administration; however renal function is worsening so would hold lasix for now -Encourage early mobilization-PT consulted 5. T2 DM -Patient is now off levemir; plan is to controlher DM with diet -Continue to check Fingersticks TIDAC and HS -F/U HbA1C -Endocrine input appreciated 6. HTN, CAD -Stable -Continue home dose of metoprolol 12.5mg BID and crestor 20mg daily 7. Mild Hyperkalemia -K+ has increased from 5.2 to 5.9; possibly due to worsening renal function -Will give Kayexalate -Continue to hold K+ supplementation -Repeat BEP in AM 8. Recent Hx of GI and normocytic anemia -Marked drop in Hb from 10.0 to 8.6 -Daily CBC monitoring -Check guaic -Continue omeprazole 40mg BID 9. Bronchial wall thickening on CXR-asthma vs atypical viral infection -No obvious signs of infection -Tessalon perls and robitussin for chronic dry cough -TRC/ Nebs -NC O2 as needed ALPS and SC heprain for DVT ppx Diabetic Diet DNR/ DNI Problem List: 1. Dysrhythmia 2. Hypoglycemia 3. Anasarca Pain Ratin Pain Location: na Pain Goal: Remain pain free Pain Plan: current plan Tomorrow's Labs & Rationales: cbc, bep Namita Fine 03/25/18 1352: Attending MD Review Statement Attending Statement Attending MD Statement: examined this patient, discuss w/resident/PA/CLERICAL DENTIST ASSISTANT, agreed w/resident/PA/CLERICAL DENTIST ASSISTANT, discussed with family, reviewed EMR data (avail), discussed with nursing, discussed with case mgmt, reviewed images, amended to note Attending Assessment/Plan: Patient is aao2 oriented. She is poor historian. Patient has developed hyperkalemia K 5.9. Patient creatinine function is mildly elevated today from probable worseining chronic kidney disease. Patient received lasix iv 40 bid for fluid overload possible from kidney disease and heart failure. Her insulin has been stopped for hypoglcemic event she had before admisiosn. Endocrinology consulted and recommned holding off insulin. Monitor cbc for now with recent history of GI bleed. c/w PPi bid. Check urine studies, consider renal USG. Hold lasix for now. Follow cardiology, consult nepphrology. gi/dvt porphyalxis DNR/ DNI.
--- NOTE | 2018-03-25 07:53 | PN- Diabetes ---
Assessment/Plan Diabetes Assessment: The patient states she feels okay. She is more alert and oriented this morning. She states she will be eating breakfast. The patient has been off insulin. Her fingerstick blood sugar this morning without insulin is 109. Plan: Suggest continue to observe the patient's blood sugars off insulin. We will need to see how her readings are today before adding any additional therapy for her diabetes. Subjective Subjective: Feels okay Review of Systems Constitutional: Denies: chills, fever. Cardiovascular: Denies: chest pain. Respiratory: Denies: cough, short of breath. Gastrointestinal: Denies: vomiting. Skin: Reports: no symptoms. Objective Last 24 Hrs of Vital Signs/I&O Vital Signs Date Time Temp Pulse Resp B/P B/P Pulse O2 O2 Flow FiO2 Mean Ox Delivery Rate 03/25 0641 97.6 67 20 100/50 100 Nasal 1.0L Cannula 03/249 97.5 64 18 97 Nasal 1.0L Cannula 03/24 2058 63 122/68 03/24 1832 Nasal 1.0L Cannula 03/24 1500 92 Nasal 2.0L Cannula 03/24 1329 95.2 18 97 Nasal 2.0L Cannula 03/24 1300 96.1 66 18 114/88 94 Room Air 03/24 1047 98.2 59 20 112/74 97 Room Air 03/24 0906 96 Room Air 03/24 0906 59 18 133/60 96 Room Air Intake & Output 03/25 0800 03/25 0000 03/24 1600 Intake Total 120 260 60 Output Total Balance 120 260 60 Intake, Oral 120 260 60 Patient 167 lb 168 lb Weight Weight Bed scale Measurement Method Vital Signs Date Time Temp Pulse Resp B/P B/P Pulse O2 O2 Flow FiO2 Mean Ox Delivery Rate 03/25 0641 97.6 67 20 100/50 100 Nasal 1.0L Cannula 03/249 97.5 64 18 97 Nasal 1.0L Cannula 03/248 63 122/68 03/24 1832 Nasal 1.0L Cannula 03/24 1500 92 Nasal 2.0L Cannula 03/24 1329 95.2 18 97 Nasal 2.0L Cannula 03/24 1300 96.1 66 18 114/88 94 Room Air 03/24 1047 98.2 59 20 112/74 97 Room Air 03/24 0906 96 Room Air 03/24 0906 59 18 133/60 96 Room Air Intake & Output 03/25 0800 03/25 0000 03/24 1600 Intake Total 120 260 60 Output Total Balance 120 260 60 Intake, Oral 120 260 60 Patient 167 lb 168 lb Weight Weight Bed scale Measurement Method Physical Exam General Appearance: alert, awake, comfortable Head: normal appearance Respiratory: normal breath sounds Cardiovascular: regular rate/rhythm Abdomen: normal bowel sounds, soft Current Medications: Current Medications Sig/Jaylon Start time Last Medication Dose Route Stop Time Status Admin Acetaminophen 650 MG Q6P PRN 03/24 1415 AC PO Albuterol Sulfate 3 ML Q4P PRN 03/24 1845 AC INH Aspirin 81 MG DAILY 03/24 1555 AC 03/24 PO 1640 Atorvastatin Calcium 80 MG 1700 03/24 1700 AC 03/24 PO 1640 Benzonatate 100 MG TID 03/24 1509 AC 03/24 PO 1640 Cholecalciferol 1,000 IU DAILY 03/25 0900 AC PO Docusate Sodium 100 MG BID 03/24 2100 AC PO Docusate Sodium 100 MG BID 03/24 2100 CAN PO Escitalopram Oxalate 10 MG DAILY 03/25 0900 AC PO Furosemide 40 MG DAILY 03/24 1528 AC 03/24 IV 1640 Guaifenesin 10 ML Q6P PRN 03/24 1715 AC PO Heparin Sodium 5,000 UNIT Q8 03/24 1421 AC 03/25 (Porcine) SC 0515 Metoprolol Tartrate 12.5 MG BID 03/24 2100 AC PO Omeprazole 40 MG BID 03/24 2100 AC PO Findings Pertinent Lab/Ambrose Results: Laboratory Tests 03/25 03/24 03/24 0638 1725 1300 Chemistry Sodium Pending Potassium Pending Chloride Pending Carbon Dioxide Pending Anion Gap Pending BUN Pending Creatinine Pending BUN/Creatinine Ratio Pending Troponin I (< 0.11 ng/ml) 0.08 TSH Pending Free T4 Pending Cortisol AM Sample Pending Hematology CBC w Diff Pending WBC Pending RBC Pending Hgb Pending Hct Pending MCV Pending MCH Pending MCHC Pending RDW Pending Plt Count Pending MPV Pending Urines Urinalysis LIGHT H Urine Color (YEL,AMB,STR) YEL Urine Clarity (CLEAR) CLEAR Urine pH (5.0 - 8.0) 5.5 Ur Specific [place] (1.001 - 1.035) 1.025 Urine Protein (NEG,<30 MG/DL) 30 H Urine Ketones (NEG) NEG Urine Nitrite (NEG) NEG Urine Bilirubin (NEG) NEG Urine Urobilinogen (0.1 - 1.0 EU/dl) 1.0 Ur Leukocyte Esterase (NEG) NEG Ur Microscopic SEDIMENT EXAMINED Urine RBC (0 - 5 /HPF) 1-3 Urine WBC (0 - 2 /HPF) 1-3 H Ur Epithelial Cells (NONE,FEW) FEW Urine Bacteria (NEG/NONE) FEW H Urine Hemoglobin (NEG) NEG Urine Glucose (N MG/DL) NEG 03/24 03/24 1035 0720 Chemistry Sodium (137 - 145 mmol/L) 137 Potassium (3.5 - 5.1 mmol/L) 5.2 H Chloride (98 - 107 mmol/L) 102 Carbon Dioxide (22 - 30 mmol/L) 20 L Anion Gap (5 - 16) 15 BUN (7 - 17 mg/dL) 58 H Creatinine (0.5 - 1.0 mg/dL) 2.2 H Estimated GFR (>60 ml/min) 21 L BUN/Creatinine Ratio (7 - 25 %) 26.4 H Glucose (65 - 99 mg/dL) 210 H Hemoglobin A1c (4.2 - 5.8 %) Pending Calcium (8.4 - 10.2 mg/dL) 8.3 L Total Bilirubin (0.2 - 1.3 mg/dL) 1.7 H AST (14 - 36 U/L) 27 ALT (9 - 52 U/L) 25 Alkaline Phosphatase (<127 U/L) 129 H Troponin I (< 0.11 ng/ml) 0.08 0.08 Total Protein (6.3 - 8.2 g/dL) 7.7 Albumin (3.5 - 5.0 g/dL) 3.5 Globulin (1.9 - 4.2 gm/dL) 4.2 Albumin/Globulin Ratio (1.1 - 2.2 %) 0.8 L TSH (0.270 - 4.200 uIU/mL) 7.060 H Thyroxine (T4) (4.5 - 10.9 ug/dL) 7.1 Hematology CBC w Diff NO MAN DIFF REQ WBC (4.8 - 10.8 /CUMM) 6.5 RBC (4.20 - 5.40 /CUMM) 3.28 L Hgb (12.0 - 16.0 G/DL) 10.0 L Hct (37 - 47 %) 30.0 L MCV (81.0 - 99.0 FL) 91.3 MCH (27.0 - 31.0 PG) 30.4 MCHC (33.0 - 37.0 G/DL) 33.3 RDW (11.5 - 14.5 %) 18.0 H Plt Count (130 - 400 /CUMM) 189 MPV (7.4 - 10.4 FL) 6.7 L Gran % (42.2 - 75.2 %) 85.8 H Lymphocytes % (20.5 - 51.1 %) 5.8 L Monocytes % (1.7 - 9.3 %) 8.2 Eosinophils % (0 - 5 %) 0 Basophils % (0.0 - 2.0 %) 0.2 Absolute Granulocytes (1.4 - 6.5 /CUMM) 5.6 Absolute Lymphocytes (1.2 - 3.4 /CUMM) 0.4 L Absolute Monocytes (0.10 - 0.60 /CUMM) 0.5 Absolute Eosinophils (0.0 - 0.7 /CUMM) 0 Absolute Basophils (0.0 - 0.2 /CUMM) 0
[2018-03-25 08:12] LABS: ABSOLUTE BASOPHIL COUNT 0 /CUMM (0.0-0.2); ABSOLUTE EOSINOPHIL COUNT 0 /CUMM (0.0-0.7); ABSOLUTE LYMPH COUNT 0.5 /CUMM (1.2-3.4); ABSOLUTE MONOCYTE COUNT 0.5 /CUMM (0.10-0.60); BASOPHIL % 0.5 % (0.0-2.0); EOSINOPHIL % 0.5 % (0-5); HEMATOCRIT 26.1 % (37-47); MEAN CORPUSCULAR HGB 30.5 PG (27.0-31.0); MEAN CORPUSCULAR HGB CONC 32.8 G/DL (33.0-37.0); MEAN CORPUSCULAR VOLUME 92.8 FL (81.0-99.0); MEAN PLATELET VOLUME 7.2 FL (7.4-10.4); PLATELET COUNT 157 /CUMM (130-400); RBC DISTRIBUTION WIDTH 17.9 % (11.5-14.5); RED BLOOD CELL CT 2.81 /CUMM (4.20-5.40)
--- NOTE | 2018-03-25 08:51 | Discharge Summary ---
Visit Information Visit Dates Admission Date: 03/24/18 Discharge Date: 04/05/18 Hospital Course Course Attending Physician: Namita Fine MD Primary Care Physician: Davey Garcia MD Consulting Request: Consulting Specialty: Cardiology Hospital Course: 83 YO F custodial resident SANDRA for unresponsiveness/change in mental status with inability to communicate, mumbling and possible left sided weakness when staff where trying to arouse her this morning at 6am. Patient is a poor historian. She recieved 16 units of levemir the night prior to admission and her BG in the morning was 29. Symptoms resolved following administration of D10 by EMS. She denied fever, SOB, CP, headaches, blurry vision or recent or frequent falls. She ambulates with a cane and sometimes a walker. Assessment 1. AMS likely 2/2 Hypoglycemia 2. Atrial arrythmias-unclear etiology 3. CHF with anasarca 4. Hyperkalemia 5. Normocytic anemia 2/2 Hx of recent GI Bleed 6. VICTORIA on CKD vs worsening CKD 7. T2 DM on insulin 8. HTN 9. Hx of CAD s/p bypas and stent placement 10. Bronchial wall thickening on CXR-asthma vs atypical viral infection Hospital Course She was managed on the Telemetry floor for the following issues; 1. Hyperkalemia Likely due to worsening renal function and postassium supplementation. Now resolved. Patient received kayexalate, insulin/glucose and albuterol nebulizer to treat her hyperkalemia. Please avoid K+ supplementation or K+ sparing meds/ diuretics at this time. Continue 2g potassium diet. Repeat BEP in 1 week to monitor. No Napoleon/arb sec to hyperkalemia 2. AMS 2/2 hypoglycemia now resolved Likely from over treatment of DM with levemir insulin. Insulin discontinued and patient is being managed with diet only for now. Continue fingerstick daily glucose checks. Watch for recurrent hypoglycemia. Encourage good oral intake. 3. Atrial arrythmias on EKG Admission EKG revealed atrial bigeminy with PACs with concern for PAF. She did not have any afib while in hospital. She also has a 1st degree AV block. ECHO revealed normal left ventricular diastolic filling pattern for age but the ejection fraction is visually estimated at 30%. ACS was ruled out. Close outpatient cardiology f/u recommended for further workup and management. 4. VICTORIA on CKD Slowly in likely due to hypotension following lasix administration. Recent baseline Cr has been around 1.8 but creatinine bumped to 2.8. Low dose dobutamine drip was started to improve renal perfusion. Creatinine now improved to 1.9 on discharge. Close nephrology follow up is recommended. Repeat BEP in 1 week. 4. Decompensated systolic CHF with severely reduced EF CXR showed interstitial pulm edema and patient presented with anasarca. ECHO shows a 30% EF with normal diastolic fuction; no previous ECHO to compare. Dobutamine drip was given briefly to improve inotropy and IV lasix was given for diuresis. Anarsarca is improved. She will be discharged on PO lasix 60mg BID. Cardiology follow up recommended. Dig added to her med regimen 5. T2 DM Levemir stopped in hospital due to hypoglycemia. Due to her age and multiple co- morbidities, she will not benefit from too tightly controlled BG. Plan is to now manage her DM with diet only. BG have remained stable off insulin. Continue to check fingersticks daily. HbA1c 5.9. 6. HTN, CAD Stable. Due to low BP, we reduced her metoprolol dose from 12.5 to 6.5mg BID. Continue crestor 20mg daily. 8. Normocytic anemia Likely due to her CKD and recent GI bleed, her iron levels were reduced,. She was given 1 dose of Epogen. Guaic negative. No aggressive workup done. Continue omeprazole 40mg BID. Iron supplementation started. Discharge H&H 8.5/26.1. Repeat CBC in 1 week. 9. Bronchial wall thickening on CXR No obvious signs of infection. Tessalon perls and robitussin were given for chronic dry cough which has resolved. Inhalers/nebs/O2 were given as needed. 10. Small ulcer on back of rt lower leg Healed. Keep area elevated as much as possible to avoid decubitus ulcers. 11. Urinary incontinence Patient is incontinent but occassionally has retained urine requiring straight catheterization. Please monitor urine output and catheterize if any residuals. FYI. Patient has been refusing her medications and food while in hospital. She has been wanting to go home but has been upset that she is being kept in the hospital against her will. I spoke with patient's son Carlitos and he felt that the patient will continue to refuse food and medications since she does not want to be in hospital any longer. Since patient had improved, he asked that we discontinue the dobutamine drip and switch her to oral lasix and he can take her back to the SNF as she might be more cooperative when she gets there. He and his brother will try to make sure she takes her meds at the facility since his brother works there and he works close by. He understands that her current renal function may be her new baseline and if her conditions worsens again, they will decide at the time whether or not to re-hospitalize her. Ideally, we would have liked to see that she improves of IV dobutamine and on oral medications if she is willing to take them but, if the family and patient are not enthusiastic about continued diagnosis and treatment and understand the potention consequences, then it is reasonable to stop the medications and return her nursing facility. Complications: none Allergies: Coded Allergies: No Known Allergies (03/24/18) Significant Procedures: none Disposition Summary Disposition Principal Diagnosis: 1. AMS likely 2/2 Hypoglycemia in T2 DM 2. Atrial arrythmias-with possible PAF Additional Diagnosis: 3. Decompensated systolic CHF with anasarca 4. Hyperkalemia 5. VICTORIA on CKD vs worsening CKD Discharge Disposition: SNF Discharge Instructions General Discharge Information Code Status: Do Not Resucitate/Intubat Patient's Diet: Diabetic Patient's Activity: As tolerated Follow-Up Instructions/Appts: Please follow up with your PCP in 1 week Please folow up with your senior sas developer in 1 week Please follow up with your carburetor mechanic in 1 week Repeat CBC, BEP in 1 week Limit dietary potassium to 2 g per day Medications at Discharge Discharge Medications: Stop taking the following medications: Metoprolol Tartrate (Metoprolol Tartrate) 25 MG TABLET ORAL TWICE DAILY Insulin Detemir (Levemir Flextouch) 100 UNIT/ML (3 ML) INSULN.PEN Inject into fatty tissue Every night Furosemide (Furosemide) 20 MG TABLET ORAL EVERY 48 HOURS (Every 2 days) Continue taking these medications: Docusate Sodium (Colace) 100 MG CAPSULE 1 Capsule ORAL TWICE DAILY Comments: Last Taken:03/29/18 Time: 8:55 PM Pantoprazole Sodium (Pantoprazole Sodium) 40 MG TABLET.DR 1 Tablet ORAL TWICE DAILY Comments: Last Taken:03/30/18 Time: 10:00 AM Rosuvastatin Calcium (Crestor) 20 MG TABLET 1 Tablet ORAL Every night Comments: Last Taken:03/30/18 Time: 5:15 PM Ipratropium/Albuterol Sulfate (Iprat-Albut 0.5-3(2.5) MG/3 Ml) 0.5 MG-3 MG (2.5 MG BASE)/3 ML AMPUL.NEB 1 Inhalation ORAL 4 TIMES A DAY Comments: DID NOT RECEIVE WHILE IN HOSPITAL Escitalopram Oxalate (Lexapro) 10 MG TABLET 1 Tablet ORAL DAILY Comments: DID NOT RECEIVE WHILE IN HOSPITAL Start taking the following new medications: Digoxin (Lanoxin) 125 MCG TABLET 0.125 Milligram ORAL Every other day Qty = 30 No Refills Comments: Last Taken:04/04/18 Time: 6:15 PM Aspirin (Aspirin*) 81 MG TAB.CHEW 81 Milligram ORAL DAILY Qty = 30 No Refills Comments: Last Taken:04/04/18 Time: 2:45 PM Ferrous Sulfate (Ferrous Sulfate) 325 MG (65 MG IRON) TABLET.DR 325 Milligram ORAL THREE TIMES DAILY Qty = 30 No Refills Comments: Last Taken:04/01/18 Time: 11:15 AM Polyethylene Glycol 3350 (Miralax) 17 GRAM/DOSE POWDER 17 Gram ORAL DAILY Qty = 30 No Refills Comments: Last Taken:03/26/18 Time: 2:00 PM Sennosides/Docusate Sodium (Senna Plus Tablet) 8.6 MG-50 MG TABLET 2 Tablet ORAL DAILY Qty = 30 No Refills Comments: Last Taken:03/30/18 Time: 10:00 AM Nystatin (Nystatin) 100,000 UNIT/GRAM CREAM..G. 1 Application On the skin THREE TIMES DAILY Qty = 2 No Refills Instructions: APPLY UNDERNEATH BREASTS Comments: Last Taken:04/05/18 Time: 10:00 AM Cholecalciferol (Vitamin D3) 1,000 UNIT TABLET 1,000 International Unit ORAL DAILY Qty = 30 No Refills Comments: Last Taken:03/30/18 Time: 10:00 AM Metoprolol Tartrate (Metoprolol Tartrate) 25 MG TABLET 6.25 Milligram ORAL TWICE DAILY Qty = 30 No Refills Comments: Last Taken:04/04/18 Time: 2:45 PM Furosemide (Lasix) 20 MG TABLET 3 Tablet ORAL TWICE DAILY Qty = 30 No Refills Comments: Last Taken:04/04/18 Time: 2:45 PM Copies To: Jose MCCAULEY,Davey Attending MD Review Statement Documenting Attending: Namita Fine MD Other Findings: Discharging physician Dr Albertina good.
--- NOTE | 2018-03-25 09:56 | RADIOLOGY REPORT ---
EXAMINATION: XR PORTABLE CHEST CLINICAL INFORMATION: Evaluate for interstitial edema, fluid overload. COMPARISON: 03/24/2018 TECHNIQUE: Portable frontal view of the chest was obtained. FINDINGS: Status post sternotomy. Cardiac leads overlie the chest. Heart is enlarged, similar to previous. There is interstitial prominence in bilateral lungs, with hazy airspace opacities in the right hemithorax. This is more prominent as compared to previous. Findings suggest mild interstitial pulmonary edema. No confluent airspace disease otherwise. No effusion. No pneumothorax. IMPRESSION: Findings suggest interstitial pulmonary edema.
[2018-03-25 14:09] VITALS: BP 92/54
--- NOTE | 2018-03-25 20:44 | PN- Cardiology ---
Subjective Subjective: * No chest discomfort or shortness of breath. * sinus rhythm * creatinine in 2.4 with potassium 5.9 Objective Vital Signs and I&Os Vital Signs Date Time Temp Pulse Resp B/P B/P Pulse O2 O2 Flow FiO2 Mean Ox Delivery Rate 03/25 1941 95 Nasal 1.0L Cannula 03/25 1600 Nasal 1.0L Cannula 03/25 1520 Nasal 1.0L Cannula 03/25 1409 97.6 59 20 92/54 96 Nasal 1.0L Cannula 03/25 1115 94 Nasal 1.0L Cannula 03/25 0936 67 104/50 03/25 0800 100 Nasal 1.0L Cannula 03/25 0641 97.6 67 20 100/50 100 Nasal 1.0L Cannula 03/24 2229 97.5 64 18 97 Nasal 1.0L Cannula 03/24 2058 63 122/68 Intake & Output 03/25 1600 03/25 0800 03/25 0000 03/24 1600 03/24 0800 03/24 0000 Intake Total 240 120 260 60 Output Total Balance 240 120 260 60 Intake, Oral 240 120 260 60 Number 0 Bowel Movements Patient 167 lb 168 lb 140 lb Weight Weight Bed scale Measurement Method Physical Exam: General: WD/WN female in NAD; awake and responsive HEENT: NC/AT, PERRL, EOMI Neck: no JVD, no carotid bruit Heart: irregular Lungs: crackles at bases bilaterally ABdomen: firm, NT, +ve bowel sounds Extremities: 2+ bilateral leg edema with erythema Assessment/Plan Assessment/Plan * This patient has had multiple ECG's which show an irregular rhythm with very small P waves. She is in a sinus rhythm with PAC's and at times atrial bigeminy. We will continue to monitor on telemetry. * This patient also has bilateral leg edema and pulmonary edema in the setting of mild renal insufficiency. Obtain an echocardiogram to assess his LV function. Begin a dobutamine drip at 5mcg/kg/min. Begin Lasix 40mg IV daily with careful monitoring of her BUN, creatinine and potassium. Continue Metoprolol, aspirin and a statin as previously prescribed. * Agree with kayexalate for increased potassium. Continue telemetry? Yes
[2018-03-25 23:01] VITALS: BP 108/60
[2018-03-26 06:53] VITALS: BP 112/64
--- NOTE | 2018-03-26 07:22 | PN- Diabetes ---
Assessment/Plan Diabetes Assessment: Patient states she feels improved. She has been off insulin. Her fingerstick blood sugars yesterday were 109 before breakfast, 186 before lunch, 150 before dinner and 144 at bedtime. This morning her fingerstick sugar before breakfast is 128. The patient's serum creatinine yesterday was 2.4. Plan: Suggest continue to keep the patient off insulin. We can treat her diabetes with diet alone. In view of her increasing creatinine and she should have renal ultrasound. Subjective Subjective: Feels okay Review of Systems Constitutional: Denies: chills, fever. Cardiovascular: Denies: chest pain. Respiratory: Denies: cough, short of breath. Gastrointestinal: Denies: abdominal pain. Objective Last 24 Hrs of Vital Signs/I&O Vital Signs Date Time Temp Pulse Resp B/P B/P Pulse O2 O2 Flow FiO2 Mean Ox Delivery Rate 03/26 0653 97.9 58 20 112/64 99 Nasal Cannula 03/26 0000 Nasal 1.0L Cannula 03/25 2301 97.4 55 20 108/60 95 Nasal Cannula 03/258 59 108/60 03/25 194 95 Nasal 1.0L Cannula 03/25 1600 Nasal 1.0L Cannula 03/25 1520 Nasal 1.0L Cannula 03/25 1409 97.6 59 20 92/54 96 Nasal 1.0L Cannula 03/25 1115 94 Nasal 1.0L Cannula 03/25 0936 67 104/50 03/25 0800 100 Nasal 1.0L Cannula Intake & Output 03/26 0800 03/26 0000 03/25 1600 Intake Total 50 350 240 Output Total 300 Balance 50 50 240 Intake, Oral 50 350 240 Number 1 0 Bowel Movements Output, Urine 300 Patient 168 lb Weight Weight Bed scale Measurement Method Vital Signs Date Time Temp Pulse Resp B/P B/P Pulse O2 O2 Flow FiO2 Mean Ox Delivery Rate 03/26 0653 97.9 58 20 112/64 99 Nasal Cannula 03/26 0000 Nasal 1.0L Cannula 03/251 97.4 55 20 108/60 95 Nasal Cannula 03/258 59 108/60 03/25 1941 95 Nasal 1.0L Cannula 03/25 1600 Nasal 1.0L Cannula 03/25 1520 Nasal 1.0L Cannula 03/25 1409 97.6 59 20 92/54 96 Nasal 1.0L Cannula 03/25 1115 94 Nasal 1.0L Cannula 03/25 0936 67 104/50 03/25 0800 100 Nasal 1.0L Cannula Intake & Output 03/26 0800 03/26 0000 03/25 1600 Intake Total 50 350 240 Output Total 300 Balance 50 50 240 Intake, Oral 50 350 240 Number 1 0 Bowel Movements Output, Urine 300 Patient 168 lb Weight Weight Bed scale Measurement Method Physical Exam General Appearance: alert, awake, comfortable Neck: normal inspection Respiratory: normal breath sounds Cardiovascular: regular rate/rhythm Abdomen: normal bowel sounds Extremities: normal inspection Current Medications: Current Medications Sig/Jaylon Start time Last Medication Dose Route Stop Time Status Admin Acetaminophen 650 MG Q6P PRN 03/24 1415 AC PO Albuterol Sulfate 3 ML Q4P PRN 03/24 1845 AC INH Aspirin 81 MG DAILY 03/24 1555 AC 03/25 PO 0935 Atorvastatin Calcium 80 MG 1700 03/24 1700 AC 03/25 PO 1714 Benzonatate 100 MG TID 03/24 1509 AC 03/25 PO 1451 Cholecalciferol 1,000 IU DAILY 03/25 0900 AC 03/25 PO 0936 Docusate Sodium 100 MG BID 03/24 2100 AC PO Escitalopram Oxalate 10 MG DAILY 03/25 0900 AC 03/25 PO 0935 Furosemide 40 MG DAILY 03/24 1528 DC 03/24 IV 1640 Guaifenesin 10 ML Q6P PRN 03/24 1715 AC PO Heparin Sodium 5,000 UNIT Q8 03/24 1421 AC 03/26 (Porcine) SC 0550 Metoprolol Tartrate 12.5 MG BID 03/24 2100 AC 03/25 PO 0936 Omeprazole 40 MG BID 03/24 2100 AC PO Patient Medication 1 ED ONE ONE 03/25 1530 DC Teaching ED 03/25 1531 Sodium Polystyrene 60 ML ONCE ONE 03/25 1100 DC Sulfonate [place] 03/25 1101 Sodium Polystyrene 60 ML ONCE ONE 03/25 0845 DC Sulfonate PO 03/25 0846 Findings Pertinent Lab/Ambrose Results: Laboratory Tests 03/26 03/25 03/25 0705 2150 1220 Chemistry Sodium Pending Potassium (3.5 - 5.1 mmol/L) Pending 5.8 H 5.9 H Chloride Pending Carbon Dioxide Pending Anion Gap Pending BUN Pending Creatinine Pending BUN/Creatinine Ratio Pending Hematology CBC w Diff Pending WBC Pending RBC Pending Hgb Pending Hct Pending MCV Pending MCH Pending MCHC Pending RDW Pending Plt Count Pending MPV Pending 03/25 03/24 0638 1725 Chemistry Sodium (137 - 145 mmol/L) 136 L Potassium (3.5 - 5.1 mmol/L) 5.9 H Chloride (98 - 107 mmol/L) 103 Carbon Dioxide (22 - 30 mmol/L) 22 Anion Gap (5 - 16) 11 BUN (7 - 17 mg/dL) 62 H Creatinine (0.5 - 1.0 mg/dL) 2.4 H Estimated GFR (>60 ml/min) 19 L BUN/Creatinine Ratio (7 - 25 %) 25.8 H Troponin I (< 0.11 ng/ml) 0.08 TSH (0.270 - 4.200 uIU/mL) 4.700 H Free T4 (0.85 - 1.93 ng/dL) 1.88 Cortisol AM Sample (4.46 - 22.7 ug/dL) 20.4 Hematology CBC w Diff NO MAN DIFF REQ WBC (4.8 - 10.8 /CUMM) 6.0 RBC (4.20 - 5.40 /CUMM) 2.81 L Hgb (12.0 - 16.0 G/DL) 8.6 L Hct (37 - 47 %) 26.1 L MCV (81.0 - 99.0 FL) 92.8 MCH (27.0 - 31.0 PG) 30.5 MCHC (33.0 - 37.0 G/DL) 32.8 L RDW (11.5 - 14.5 %) 17.9 H Plt Count (130 - 400 /CUMM) 157 MPV (7.4 - 10.4 FL) 7.2 L Gran % (42.2 - 75.2 %) 83.0 H Lymphocytes % (20.5 - 51.1 %) 7.9 L Monocytes % (1.7 - 9.3 %) 8.1 Eosinophils % (0 - 5 %) 0.5 Basophils % (0.0 - 2.0 %) 0.5 Absolute Granulocytes (1.4 - 6.5 /CUMM) 5.0 Absolute Lymphocytes (1.2 - 3.4 /CUMM) 0.5 L Absolute Monocytes (0.10 - 0.60 /CUMM) 0.5 Absolute Eosinophils (0.0 - 0.7 /CUMM) 0 Absolute Basophils (0.0 - 0.2 /CUMM) 0 03/24 03/24 1300 1035 Chemistry Troponin I (< 0.11 ng/ml) 0.08 TSH (0.270 - 4.200 uIU/mL) 7.060 H Thyroxine (T4) (4.5 - 10.9 ug/dL) 7.1 Urines Urinalysis LIGHT H Urine Color (YEL,AMB,STR) YEL Urine Clarity (CLEAR) CLEAR Urine pH (5.0 - 8.0) 5.5 Ur Specific [place] (1.001 - 1.035) 1.025 Urine Protein (NEG,<30 MG/DL) 30 H Urine Ketones (NEG) NEG Urine Nitrite (NEG) NEG Urine Bilirubin (NEG) NEG Urine Urobilinogen (0.1 - 1.0 EU/dl) 1.0 Ur Leukocyte Esterase (NEG) NEG Ur Microscopic SEDIMENT EXAMINED Urine RBC (0 - 5 /HPF) 1-3 Urine WBC (0 - 2 /HPF) 1-3 H Ur Epithelial Cells (NONE,FEW) FEW Urine Bacteria (NEG/NONE) FEW H Urine Hemoglobin (NEG) NEG Urine Glucose (N MG/DL) NEG
[2018-03-26 08:05] LABS: ABSOLUTE BASOPHIL COUNT 0 /CUMM (0.0-0.2); ABSOLUTE EOSINOPHIL COUNT 0.1 /CUMM (0.0-0.7); ABSOLUTE GRANULOCYTE CT 3.8 /CUMM (1.4-6.5); ABSOLUTE LYMPH COUNT 0.6 /CUMM (1.2-3.4); ABSOLUTE MONOCYTE COUNT 0.6 /CUMM (0.10-0.60); EOSINOPHIL % 1.1 % (0-5); GRANULOCYTE % 74.2 % (42.2-75.2); HEMATOCRIT 26.5 % (37-47); MEAN CORPUSCULAR HGB 30.4 PG (27.0-31.0); MEAN CORPUSCULAR HGB CONC 32.8 G/DL (33.0-37.0); MEAN CORPUSCULAR VOLUME 92.8 FL (81.0-99.0); MEAN PLATELET VOLUME 7.1 FL (7.4-10.4); PLATELET COUNT 157 /CUMM (130-400); RBC DISTRIBUTION WIDTH 18.4 % (11.5-14.5); RED BLOOD CELL CT 2.86 /CUMM (4.20-5.40); WHITE BLOOD CELL COUNT 5.1 /CUMM (4.8-10.8)
--- NOTE | 2018-03-26 08:14 | PN- Housestaff ---
Markus MCCAULEY,[place] 03/26/18 0814: Subjective Follow-up For: 1. AMS likely 2/2 Hypoglycemia in T2 DM 2. Atrial Bigeminy-unclear etiology r/o PAF 3. CHF with anasarca 4. Mild Hyperkalemia 5. VICTORIA on CKD vs worsening CKD Complaints: no complaints Tele-Events Since Last Visit: SR/SB 55-65, 1st degree AVB Subjective: Sitting up in bed having breakfast. Denies Chest pain, palpitations, SOB, or weakness. Review of Systems Constitutional: Reports: no symptoms. Objective Last 24 Hrs of Vital Signs/I&O Vital Signs Date Time Temp Pulse Resp B/P B/P Pulse O2 O2 Flow FiO2 Mean Ox Delivery Rate 03/26 0800 95 Nasal 1.0L Cannula 03/26 0653 97.9 58 20 112/64 99 Nasal Cannula 03/26 0000 Nasal 1.0L Cannula 03/25 2301 97.4 55 20 108/60 95 Nasal Cannula 03/25 2138 59 108/60 03/25 1941 95 Nasal 1.0L Cannula 03/25 1600 Nasal 1.0L Cannula 03/25 1520 Nasal 1.0L Cannula 03/25 1409 97.6 59 20 92/54 96 Nasal 1.0L Cannula 03/25 1115 94 Nasal 1.0L Cannula Intake & Output 03/26 1600 03/26 0800 03/26 0000 Intake Total 50 350 Output Total 300 Balance 50 50 Intake, Oral 50 350 Number 1 Bowel Movements Output, Urine 300 Patient 168 lb Weight Weight Bed scale Measurement Method Physical Exam General Appearance: Alert, Cooperative, No Acute Distress Cardiovascular: Regular Rate, Normal S1, Normal S2 Lungs: Clear to Auscultation, Normal Air Movement Abdomen: No Tenderness, firm to palpation Extremities: 2+ pedal edema bilaterally Current Medications: Current Medications Sig/Jaylon Start time Last Medication Dose Route Stop Time Status Admin Acetaminophen 650 MG Q6P PRN 03/24 1415 AC PO Albuterol Sulfate 3 ML Q4P PRN 03/24 1845 AC INH Aspirin 81 MG DAILY 03/24 1555 AC 03/25 PO 0935 Atorvastatin Calcium 80 MG 1700 03/24 1700 AC 03/25 PO 1714 Benzonatate 100 MG TID 03/24 1509 AC 03/25 PO 1451 Cholecalciferol 1,000 IU DAILY 03/25 0900 AC 03/25 PO 0936 Dextrose 25 GM ONCE ONE 03/26 0845 DC IV 03/26 0846 Dextrose/Water 500 ML .Q10H 03/26 0845 AC IV 03/26 1844 Docusate Sodium 100 MG BID 03/24 2100 AC PO Escitalopram Oxalate 10 MG DAILY 03/25 0900 AC 03/25 PO 0935 Guaifenesin 10 ML Q6P PRN 03/24 1715 AC PO Heparin Sodium 5,000 UNIT Q8 03/24 1421 AC 03/26 (Porcine) SC 0550 Insulin Human Regular 10 UNITS ONCE ONE 03/26 0845 DC IV 03/26 0846 Metoprolol Tartrate 12.5 MG BID 03/24 2100 AC 03/25 PO 0936 Omeprazole 40 MG BID 03/24 2100 AC PO Patient Medication 1 ED ONE ONE 03/25 1530 DC Teaching ED 03/25 1531 Sodium Polystyrene 120 ML ONCE ONE 03/26 0830 CAN Sulfonate TX 03/26 0831 Sodium Polystyrene 60 ML ONCE ONE 03/25 1100 DC Sulfonate TX 03/25 1101 Last 24 Hrs of Lab/Ambrose Results Last 24 Hrs of Labs/Mics: Laboratory Tests 03/26/18 0705: Anion Gap 13, Estimated GFR 16 L, BUN/Creatinine Ratio 22.1, CBC w Diff NO MAN DIFF REQ, RBC 2.86 L, MCV 92.8, MCH 30.4, MCHC 32.8 L, RDW 18.4 H, MPV 7.1 L , Gran % 74.2, Lymphocytes % 11.8 L, Monocytes % 11.9 H, Eosinophils % 1.1, Basophils % 1.0, Absolute Granulocytes 3.8, Absolute Lymphocytes 0.6 L, Absolute Monocytes 0.6, Absolute Eosinophils 0.1, Absolute Basophils 0 03/25/18 2150: 03/25/18 1220: Orders Fingersticks (last 24 hrs): 128 to 186 Lines/Diet/Fluids Lines: peripheral lines Assessment/Plan Assessment: 83 YO F longterm resident SANDRA for unresponsiveness/change in mental status with inability to communicate, mumbling and possible left sided weakness when staff where trying to arouse her this morning at 6am. Patient is a poor historian. She recieved 16 units of levemir the night prior to admission and her BG in the morning was 29. Symptoms resolved following administration of D10 by EMS. She denied fever, SOB, CP, headaches, blurry vision or recent or frequent falls. She ambulates with a cane and sometimes a walker. Assessment 1. AMS likely 2/2 Hypoglycemia 2. Atrial Bigeminy-unclear etiology 3. CHF with anasarca 4. Mild Hyperkalemia 5. Mild normocytic anemia 2/2 Hx of recent GI Bleed 6. VICTORIA on CKD vs worsening CKD 7. T2 DM on insulin 8. HTN 9. Hx of CAD s/p bypas and stent placement 10. Bronchial wall thickening on CXR-asthma vs atypical viral infection Plan Admited to the Telemetry floor for monitoring 1. Hyperkalemia -Worsend from 5.9 yesterdy to 6.1 -Patient has been refusing kayexalate; was given a dose of [place] kayexalate yesterday afternoon -We held off glucose/insulin for hyperkalemia treatment initially due her hypoglycemia hx, however due to worsening potassium and more prominent T-waves on EKG, we will give her insulin 10units and D50 glucose IV, with a small run of D5 maintenance to combat hypoglycemia. -Will give calcium gluconate for cardiac protection -Will also give albuterol nebs to help lower potassium -Renal consult placed -Avoid K+ supplementation or K+ sparing meds/diuretics -Repeat BEP Q6-8hrs until normalizaion of K+ 2. AMS 2/2 hypoglycemia-Resolved -Patient is being managed with diet only for now -Continue fingerstick glucose TIDAC/HS-watch for hypoglycemia -Encourage good oral intake -Endocrinology input appreciated 3. Atrial Bigeminy on EKG r/o Afib -Admission EKG revealed atrial bigeminy with PACs with concern for PAF -Cardiology following -ECHO Normal left ventricular diastolic filling pattern for age. The ejection fraction is visually estimated at 30%. -ACS ruled out. Trops have remained negative x [address] changes on EKG. 4. VICTORIA on CKD -Worsening; likely due to hypotension following lasix administration; Cr bumped to 2.8 today -Recent baseline Cr has been around 1.8 -Will start low dose dobutamine drip to renal perfusion and titrate as needed per cardiology -Nephrology consult placed -Will hold off IV hydration due to anasarca; Encourage oral intake for hydration -Repeat BEP Q6-8hrs to trend 4. Decompensated systolic CHF with anasarca -Repeat CXR yesterday show interstitial pulm edema -ECHO shows a 30% EF with normal diastolic fuction; no previous ECHO to compare -Would hold lasix for now due to worsening renal function -Dobutamine drip started to improve inotropy -Encourage early mobilization-PT consulted 5. T2 DM -Patient is now off levemir; plan is to control her DM with diet -Continue to check Fingersticks TIDAC and HS -5.9 -Endocrine input appreciated 6. HTN, CAD -Stable -Continue home dose of metoprolol 12.5mg BID and crestor 20mg daily 8. Recent Hx of GI and normocytic anemia -Stable H&H -Daily CBC monitoring -Guaic negative -Continue omeprazole 40mg BID 9. Bronchial wall thickening on CXR-asthma vs atypical viral infection -No obvious signs of infection -Tessalon perls and robitussin for chronic dry cough -TRC/ Nebs -NC O2 as needed ALPS and SC heprain for DVT ppx Diabetic Diet DNR/ DNI Problem List: 1. Dysrhythmia 2. Anasarca 3. Hypoglycemia Pain Ratin Pain Location: na Pain Goal: Remain pain free Pain Plan: na Tomorrow's Labs & Rationales: cbc, bep BabatundeFelipe gibsondianna 03/26/18 1236: Attending MD Review Statement Attending Statement Attending MD Statement: examined this patient, discuss w/resident/PA/BEHAVIORAL HEALTH WORKER, agreed w/resident/PA/BEHAVIORAL HEALTH WORKER, discussed with family, reviewed EMR data (avail), discussed with nursing, discussed with case mgmt, reviewed images, amended to note Attending Assessment/Plan: Patient seen/examined bedside. She is not very coperative with interview process. Labs show hyperkalemia, EKG with hyperacute T waves. Chest xray with interstitial edema. 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 Patient creatinine is worsening possible cardiorenal syndrome or possible hypotension with ATN. Cardiology recommend dobutamine drip. Nephrology consult. Give insulin with D50 and repeat K. Endocrinology has been consulted for ams/Hypoglycemia and recommned no tight control. Diet only in future. Constipation Obtain abd xray r/o obstrcution and trial of enema. Monitor for bowel movement. Acute on chronic CHF systolic EF 30% exacerbation with interstitial edema received lasix intially and now being started on dobutamine drip. GI/DVT prophylaxis DNR/DNI. Inform family, wish conservative measures only.
--- NOTE | 2018-03-26 09:21 | ECHOCARDIOGRAM REPORT ---
KVNG DIAZ Age: 83 : 1935 Gender: F Exam Date: 03/25/2018 15:30 Exam Location: 1 [address] Ht (in): 63 Wt (lb): 140 BSA: 1.69 BP: 100 / 50 Ordering Physician: Yas Aparicio MD Referring Physician: Poncho Lizama MD, PhD Technologist: Camille Mack [facility] Room Number: 171 Indications: ARRHYTHMIAS Rhythm: Sinus Technical Quality: fair FINDINGS Left Ventricle Normal left ventricular size with mild left ventricular hypertrophy. Severely decreased systolic function with distal inferior, anteroseptal, septal and anterior wall hypokinesis. Normal left ventricular diastolic filling pattern for age. The ejection fraction is visually estimated at 30%. Right Ventricle The right ventricle is normal in size and function. Right Atrium The right atrium is normal in size. Left Atrium The left atrium is normal in size. The interatrial septum is intact. Mitral Valve The mitral valve demonstrates moderate annular calcification. There is moderate mitral regurgitation. Aortic Valve Moderately thickened and sclerotic aortic valve with mild stenosis. There is mild aortic regurgitation. Tricuspid Valve The tricuspid valve is normal in structure and function. There is moderate tricuspid regurgitation. Pulmonary artery systolic pressure is moderately elevated to 48mmHg. Pulmonic Valve Structurally normal pulmonic valve. There is no pulmonic regurgitation. Pericardium Normal pericardium without effusion. No pleural effusion. Great Vessels Normal aortic root dimension. The aortic arch and great vessels are well seen and are normal. CONCLUSIONS 1. Moderate to severely decreased EF of 30% with regional wall motion abnormalities as described above. 2. Mild left ventricular hypertrophy. 3. Moderate mitral regurgitation. 4. Moderate tricuspid regurgitation. 5. Mild aortic regurgitation with mild aortic stenosis. 6. Moderate pulmonary hypertension. Poncho Lizama M.D. (Electronically Signed) Final Date: 26 March 2018 09:21 MEASUREMENTS (Male / Female) Normal Values 2D ECHO LV Diastolic Diameter PLAX 4.3 cm 4.2 - 5.9 / 3.9 - 5.3 cm LV Systolic Diameter PLAX 3.6 cm 2.1 - 4.0 cm LV Fractional Shortening PLAX 16.3 % 25 - 46 % LV Ejection Fraction 2D Teich 34.5 % IVS Diastolic Thickness 1.4 cm LVPW Diastolic Thickness 1.4 cm LV Relative Wall Thickness 0.7 RV Internal Dim ED PLAX 3.4 cm 1.9 - 3.8 cm LVOT Diameter 1.9 cm Aortic Root Diameter 2.2 cm LA Volume 70.0 cm 18 - 58 / 22 - 52 cm Ascending Aorta Diameter 2.7 cm DOPPLER AV Peak Velocity 177.0 cm/s AV Peak Gradient 12.5 mmHg AV Mean Velocity 128.0 cm/s AV Mean Gradient 7.0 mmHg AV Velocity Time Integral 40.0 cm LVOT Peak Velocity 109.0 cm/s LVOT Peak Gradient 4.8 mmHg LVOT Mean Velocity 71.8 cm/s LVOT Mean Gradient 2.0 mmHg LVOT Velocity Time Integral 22.9 cm LVOT Stroke Volume 64.9 cm AV Area Cont Eq vti 1.6 cm AV Area Cont Eq pk 1.7 cm MV Peak Velocity 106.0 cm/s MV Peak Gradient 4.5 mmHg MV Mean Velocity 56.7 cm/s MV Mean Gradient 2.0 mmHg Mitral E Point Velocity 99.7 cm/s Mitral A Point Velocity 58.2 cm/s Mitral E to A Ratio 1.7 MV PHT Velocity 111.0 cm/s MV Deceleration [place] 302.0 cm/s MV Pressure Half Time 110.3 ms MV Area PHT 2.0 cm MV Deceleration Time 111.0 ms TR Peak Velocity 309.0 cm/s TR Peak Gradient 38.2 mmHg Right Atrial Pressure 10.0 mmHg Pulmonary Artery Systolic Pressu 48.2 mmHg Right Ventricular Systolic Press 48.2 mmHg PV Peak Velocity 67.2 cm/s PV Peak Gradient 1.8 mmHg PV Mean Velocity 42.5 cm/s PV Mean Gradient 1.0 mmHg PV Velocity Time Integral 13.1 cm LV E' Lateral Velocity 6.1 cm/s Mitral E to LV E' Lateral Ratio 16.2 LV E' Septal Velocity 3.3 cm/s Mitral E to LV E' Septal Ratio 29.9
--- NOTE | 2018-03-26 12:53 | RADIOLOGY REPORT ---
EXAMINATION: XR PORTABLE ABDOMEN CLINICAL INFORMATION: Firm abdomen. Absent bowel movement. COMPARISON: None TECHNIQUE: AP view of the abdomen. FINDINGS: Bowel gas pattern is normal. A normal amount of stool is present within the colon. No evidence of dilated bowel or pneumoperitoneum on this single view exam. Peripheral vessels are calcified. No acute findings in the visualized, degenerated spine or degenerated hips. IMPRESSION: - No acute radiographic findings in the abdomen. - No evidence of excessive stool or bowel obstruction.
--- NOTE | 2018-03-26 14:23 | Cons- Nephrology ---
General Information and HPI Consulting Request Date of Consult: 03/26/18 Requested By: Namita Fine MD Reason for Consult: VICTORIA with hyperkalemia Source of Information: patient, old records Exam Limitations: poor historian, language barrier (Fifth consult today 3 of [facility] ) History of Present Illness: I have been asked to see this 83-year-old woman because of a rising serum creatinine and hyperkalemia. She was admitted from her ECF on 03/24 with altered mental status secondary to hypoglycemia which resolved with correction of her blood glucose. Serum creatinine on admission was 2.2 rising to 2.8 today accompanied by a serum potassium that marina from 5.2 to 6.1. Serum bicarbonate has remained between 20 and 22. Earlier this month her serum creatinine ranged from 1.7-2.1. I currently have no access to renal function data prior to March 01. She has not received any parenteral or oral potassium supplementation and is on no medications known to raise serum potassium level. Blood sugar had come up to 210 but fingerstick values have generally been in the low to mid 100s over the past 24-48 hours. She is incontinent of urine. Her blood pressures have at times been quite low - 92/54 yesterday and 102/68 today. Echocardiogram shows markedly diminished LV systolic function with an LVEF of 30% with regional wall motion abnormalities and moderate pulmonary hypertension. Dobutamine was started yesterday but urine output not being accurately assessed because of incontinence. She has been started on an oral diuretic but has received no intravenous diuretics. There has been no exposure to parenteral contrast or NSAIDs. Past medical history is positive for diabetes mellitus II, hypertension, congestive heart failure, CKD, GI bleed with anemia Medications: See below Allergies: No known drug allergies Family history negative for any known kidney disease in parents or other family members Social history: Currently at an [facility]. Had been living with one of her children and a grandchild. Former cigarette smoker. No history of alcohol or drug abuse. Allergies/Medications Allergies: Coded Allergies: No Known Allergies (03/24/18) Home Med List: Cholecalciferol (Vitamin D3) (Vitamin D3) 1,000 UNIT CAPSULE 1 CAP PO Mo VITAMIN SUPPORT (Reported) Docusate Sodium (Colace) 100 MG CAPSULE 1 CAP PO BID STOOL SOFTENER (Reported ) Escitalopram Oxalate (Lexapro) 10 MG TABLET 1 TAB PO DAILY MENTAL HEALTH ( Reported) Furosemide 20 MG TABLET 1 TAB PO Q48 WATER RETENTION (Reported) Insulin Detemir (Levemir Flextouch) 100 UNIT/ML (3 ML) INSULN.PEN 16 UNITS SC QPM DIABETES (Reported) Ipratropium/Albuterol Sulfate (Iprat-Albut 0.5-3(2.5) MG/3 Ml) 0.5 MG-3 MG (2.5 MG BASE)/3 ML AMPUL.NEB 1 INH PO 4 TIMES/DAY BREATHING PROBLEMS (Reported) Metoprolol Tartrate 25 MG TABLET 0.5 TAB PO BID HEART (Reported) Pantoprazole Sodium 40 MG TABLET.DR 1 TAB PO BID GI (Reported) Rosuvastatin Calcium (Crestor) 20 MG TABLET 1 TAB PO QPM CHOLESTEROL ( Reported) Review of Systems Review of Systems: Gen.: Appetite flat, no documented weight loss or weight gain Skin: No rash or jaundice HEENT: No visual or hearing disturbances, no discharge Cardiopulmonary: No shortness of breath, cough, chest pain, orthopnea GI: No nausea, vomiting, abdominal pain, diarrhea : No dysuria, hematuria or other symptoms referable to the urinary tract other than incontinence Musculoskeletal: Nonspecific arthralgias, myalgias, weakness Neuro: +Weakness, altered mental status as noted in HPI (now resolved), no paresthesias Past History Travel History Traveled to [place] past 21 day No Medical History Blood Transfusion Hx: Yes Neurological: NONE EENT: NONE Cardiovascular: CHF, hypertension Respiratory: NONE, O2 AT HOME Gastrointestinal: NONE Hepatic: NONE Renal: chronic kidney disease, UTI Musculoskeletal: SHOULDER BROKEN FEW YEARS AGO-HAS A PLATE Psychiatric: NONE Endocrine: diabetes Blood Disorders: anemia Cancer(s): NONE ROUTE RELIEF DRIVER/Reproductive: NONE Surgical History Surgical History: non-contributory Family History Relations & Conditions If Any: Relation not specified for: *No pertinent family history Psychosocial History Where Do You Live? Care Home Facility Smoking Status: Former Smoker ETOH Use: denies use Illicit Drug Use: denies illicit drug use Functional Ability ADLs Needs Assist: dressing, eating, toileting, bathing. Ambulation: cane, walker IADLs Needs Assist: shopping, housework, finances, telephone, transportation, medication admin. Exam & Diagnostic Data Vital Signs and I&O Vital Signs Date Time Temp Pulse Resp B/P B/P Pulse O2 O2 Flow FiO2 Mean Ox Delivery Rate 03/26 1327 94 Nasal 1.0L Cannula 03/26 1128 58 102/68 03/26 0937 58 112/64 03/26 0800 95 Nasal 1.0L Cannula 03/26 0653 97.9 58 20 112/64 99 Nasal Cannula 03/26 0000 Nasal 1.0L Cannula 03/25 2301 97.4 55 20 108/60 95 Nasal Cannula 03/25 2138 59 108/60 03/25 1941 95 Nasal 1.0L Cannula 03/25 1600 Nasal 1.0L Cannula 03/25 1520 Nasal 1.0L Cannula Intake & Output 03/26 0400 03/25 1600 03/25 0400 03/24 0400 Intake Total 50 350 360 260 60 Output Total 300 Balance 50 50 360 260 60 Intake, Oral 50 350 360 260 60 Number 1 0 Bowel Movements Output, Urine 300 Patient 168 lb 167 lb 168 lb Weight Weight Bed scale Bed scale Measurement Method Assessment/Plan Assessment/Recommendations Assessment: 83-year-old woman admitted 2 days ago from her ECF with altered mental status and found to be hypoglycemic. She responded to glucose administration with recovery of her normal level of consciousness and cognitive function. She appears to have chronic kidney disease with a baseline creatinine earlier in the month ranging from 1.7-2.1. She has now developed VICTORIA in the form of a rising serum creatinine associated with a rising potassium level without a clear-cut etiology. There does not appear to have been any clear exposure to potential nephrotoxins. However, she is relatively hypotensive with a cardiomyopathy ( LVEF 30%). This impairment in cardiac function may be the cause or at least a contributing factor with regard to her renal dysfunction, due to decreased renal perfusion. Given her incontinence, obstructive component needs to be considered and ruled out. Recommendations: 1. Renal ultrasound 2. Carmona catheter for 24 hours to assess her urine output and accurately monitor her fluid balance 3. Kayexalate 30 g by mouth now and repeat in 4-6 hours as needed to achieve a serum potassium of less than 5.6. Insulin and glucose is okay but only as a temporary measure. 4. Limit dietary potassium to 2 g per day 5. Continue dobutamine per cardiology 6. Should shortness of breath develop, she will need IV furosemide Thank you. We will follow with you.
[2018-03-26 15:14] VITALS: BP 98/52
--- NOTE | 2018-03-26 17:13 | PN- Cardiology ---
Subjective Subjective: * No complaints. * EF is confirmed to be suboptimal on her echocardiogram * sinus rhythm * creatinine is 2.8 with elevated potassium Objective Vital Signs and I&Os Vital Signs Date Time Temp Pulse Resp B/P B/P Pulse O2 O2 Flow FiO2 Mean Ox Delivery Rate 03/26 1514 97.8 61 18 98/52 99 Nasal Cannula 03/26 1327 94 Nasal 1.0L Cannula 03/26 1128 58 102/68 03/26 0937 58 112/64 03/26 0800 95 Nasal 1.0L Cannula 03/26 0653 97.9 58 20 112/64 99 Nasal Cannula 03/26 0000 Nasal 1.0L Cannula 03/25 2301 97.4 55 20 108/60 95 Nasal Cannula 03/25 2138 59 108/60 03/25 1941 95 Nasal 1.0L Cannula Intake & Output 03/26 1600 03/26 0800 03/26 0000 03/25 1600 03/25 0800 03/25 0000 Intake Total 800 50 350 240 120 260 Output Total 300 Balance 800 50 50 240 120 260 Intake, IV 300 Intake, Oral 500 50 350 240 120 260 Number 1 0 Bowel Movements Output, Urine 300 Patient 168 lb 167 lb Weight Weight Bed scale Measurement Method Physical Exam: General: WD/WN female in NAD; awake and responsive HEENT: NC/AT, PERRL, EOMI Neck: no JVD, no carotid bruit Heart: irregular Lungs: crackles at bases bilaterally ABdomen: firm, NT, +ve bowel sounds Extremities: 2+ bilateral leg edema with erythema Assessment/Plan Assessment/Plan * This patient has had multiple ECG's that show an irregular rhythm with very small P waves. She is in a sinus rhythm with PAC's and at times atrial bigeminy. We will continue to monitor on telemetry. * This patient also has bilateral leg edema and pulmonary edema in the setting of mild renal insufficiency. Obtain an echocardiogram to assess his LV function. Begin a dobutamine drip at 5mcg/kg/min. Begin Lasix 40mg IV daily. Her low normal blood pressure is noted and Lasix can be held if she has a blood pressure of less than 90mmHg. A trial of diuresis while on dobutamine is resonable to deal with her CHF. Continue to monitor her BUN, creatinine and potassium. Continue Metoprolol, aspirin and a statin as previously prescribed. * Agree with checking for an obstructive process. Continue telemetry? Yes
--- NOTE | 2018-03-26 18:41 | ULTRASOUND REPORT ---
EXAMINATION: US RETROPERITONEAL COMPLETE (RENAL) CLINICAL INFORMATION: Worsening renal function. Assess for hydronephrosis. COMPARISON: None TECHNIQUE: Real-time imaging of the kidneys and bladder. Limited portable bedside exam with patient uncooperativeness. FINDINGS: RIGHT KIDNEY: 8.4 x 2.4 x 3.3 cm (SAG x AP x TRV). There is atrophic with increased cortical thinning and echogenicity. Renal cortical thickness is normal. No calculi or focal parenchymal lesions. No hydronephrosis. LEFT KIDNEY: Not visualized. BLADDER: Well-distended and normal. Bilateral ureteral jets are demonstrated. Prevoid bladder volume is 98 mL. Postvoid bladder volume not able to be calculated There is minimally complex ascites noted of moderate severity. IMPRESSION: Right kidney atrophic without gross hydronephrosis. Left kidney not visualized as above. Limited portable imaging.
[2018-03-26] MEDS ORDERED: ASPIRIN81 M4 PO (20:58)
--- NOTE | 2018-03-26 21:01 | Patient Discharge Instructions ---
Discharge Instructions General Discharge Information You were seen/treated for: Hypoglycemia Acute Kidney injury on CKD stage 4 Hyperkalemia You had these procedures: none Special Instructions: Please follow up with your PCP in 1 week Please folow up with your ict trainer in 1 week Repeat CBC, BEP in 1 week to follow up anemia and renal function A new medication, digoxin was strated in hospital. Please check digoxin levels regularly and titrate as needed Limit dietary potassium to 2 g per day Diet Recommended Diet: Diabetic Activity Activity Self Limited: Yes Acute Coronary Syndrome Inclusion Criteria At DC or during hospital stay patient has or had the following: ACS DIAGNOSIS No Discharge Core Measures Meds if any: Prescribed or Continued at Discharge Meds if any: NOT Prescribed or Continued at Discharge Congestive Heart Failure Inclusion Criteria At DC or during hospital stay patient has or had the following: CHF DIAGNOSIS No Discharge Core Measures Meds if any: Prescribed or Continued at Discharge Meds if any: NOT Prescribed or Continued at Discharge Cerebrovascular accident Inclusion Criteria At DC or during hospital stay patient has or had the following: CVA/TIA Diagnosis No Discharge Core Measures Meds if any: Prescribed or Continued at Discharge Meds if any: NOT Prescribed or Continued at Discharge Venous thromboembolism Inclusion Criteria VTE Diagnosis No VTE Type NONE VTE Confirmed by (Test) NONE Discharge Core Measures - Per Current guidelines, there needs to be overlap - treatment for the first 5 days of Warfarin therapy. - If discharged on Warfarin prior to 5 days of - overlap therapy, the patient will need to be - assessed for post discharge needs including - *Post discharge parental anticoagulation - *Warfarin and/or parental anticoagulation education - *Follow up date to check INR post discharge At least 5 days overlap therapy as Inpatient No Meds if any: Prescribed or Continued at Discharge Note: Overlap Therapy is Warfarin and Anticoagulant Meds if any: NOT Prescribed or Continued at Discharge
[2018-03-26 23:52] VITALS: BP 124/62
[2018-03-27 06:53] VITALS: BP 112/62
--- NOTE | 2018-03-27 07:13 | PN- Housestaff ---
See Addendum Subjective Follow-up For: 1. Hypoglycemia 2/2 overtreatment of T2 DM 2. Atrial Bigeminy-unclear etiology r/o PAF 3. CHF with anasarca 4. Hyperkalemia 5. VICTORIA on CKD Complaints: no complaints Tele-Events Since Last Visit: KUSH, SR 58-65 1st degree AVB Subjective: Lying in bed, did not want to be disturbed. Denies any symptoms. Review of Systems Constitutional: Reports: no symptoms. Objective Last 24 Hrs of Vital Signs/I&O Vital Signs Date Time Temp Pulse Resp B/P B/P Pulse O2 O2 Flow FiO2 Mean Ox Delivery Rate 03/27 0653 97.5 694 20 112/62 97 Nasal Cannula 03/27 0000 Nasal 1.0L Cannula 03/26 2352 97.4 64 18 124/62 100 Nasal Cannula 03/26 2114 63 124/62 03/26 2005 95 Nasal 1.0L Cannula 03/26 1600 Nasal 1.0L Cannula 03/26 1514 97.8 61 18 98/52 99 Nasal Cannula 03/26 1327 94 Nasal 1.0L Cannula 03/26 1128 58 102/68 03/26 0937 58 112/64 03/26 0800 95 Nasal 1.0L Cannula Intake & Output 03/27 0800 03/27 0000 03/26 1600 Intake Total 180 490 800 Output Total 400 100 Balance -220 390 800 Intake, IV 180 240 300 Intake, Oral 250 500 Number 0 0 Bowel Movements Output, Urine 400 100 Patient 165 lb Weight Weight Bed scale Measurement Method Physical Exam General Appearance: Alert, No Acute Distress Cardiovascular: Normal S1, Normal S2 Lungs: scattered crackles bilaterally Abdomen: No Tenderness Extremities: 2+ pedal edema bilaterally Last 24 Hrs of Lab/Ambrose Results Last 24 Hrs of Labs/Mics: Laboratory Tests 03/27/18 0005: 03/26/18 1635: Anion Gap 9, Estimated GFR 16 L, BUN/Creatinine Ratio 22.5 03/26/18 1345: Microbiology 03/26 2130 URINE ROUT: Urine Culture - RECD Lines/Diet/Fluids Lines: peripheral lines Assessment/Plan Assessment: 83 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 Patient is a poor historian. She recieved 16 units of levemir the night prior to admission and her BG in the morning was 29. Symptoms resolved following administration of D10 by EMS. She denied fever, SOB, CP, headaches, blurry vision or recent or frequent falls. She ambulates with a cane and sometimes a walker. Assessment 1. AMS likely 2/2 Hypoglycemia 2. Atrial Bigeminy-unclear etiology 3. CHF with anasarca 4. Hyperkalemia 5. Normocytic anemia 2/2 Hx of recent GI Bleed 6. VICTORIA on CKD vs worsening CKD 7. T2 DM on insulin 8. HTN 9. Hx of CAD s/p bypas and stent placement 10. Bronchial wall thickening on CXR-asthma vs atypical viral infection Plan Admited to the Telemetry floor for monitoring 1. Hyperkalemia -Likely due to worsening renal function -Am labs pending. -Last K= was 5.4. Give MT kayexalate q4-6hrs if K+ > 5.6 -Use insulin/glucose only as temp measure for more acute elevations -Can continue albuterol nebs to help lower potassium as needed -Nephro input appreciated -Pt is on 2 g K+ diet -Avoid K+ supplementation or K+ sparing meds/diuretics -Repeat BEP Q6-8hrs until normalizaion of K+ 2. AMS 2/2 hypoglycemia-Resolved -Likely from over treatment of DM -Insulin discontinued -Patient is being managed with diet only for now -Continue fingerstick glucose TIDAC/HS-watch for hypoglycemia -Encourage good oral intake -Endocrinology input appreciated 3. Atrial Bigeminy on EKG r/o Afib -Admission EKG revealed atrial bigeminy with PACs with concern for PAF -Cardiology following -ECHO Normal left ventricular diastolic filling pattern for age. The ejection fraction is visually estimated at 30%. -ACS ruled out. Trops have remained negative x [address] changes on EKG 4. VICTORIA on CKD -Worsening; likely due to hypotension following lasix administration; Cr bumped to 2.8 today -Recent baseline Cr has been around 1.8 -Low dose dobutamine drip to renal perfusion and titrate as needed per cardiology -Nephrology consult placed -Will hold off IV hydration due to anasarca; Encourage oral intake for hydration -Repeat BEP Q6-8hrs to trend 4. Decompensated systolic CHF with anasarca -Repeat CXR shows interstitial pulm edema -ECHO shows a 30% EF with normal diastolic fuction; no previous ECHO to compare -Dobutamine drip started yesterday to improve inotropy -Continue lasix 40mg daily per cardio -Carmona was placed per cardio for I/O monitoring for 24 hrs -Daily BEP 5. T2 DM -Levemir stopped; plan is to manage her DM with diet -Continue to check fingersticks TIDAC and HS -HbA1c 5.9 -Endocrine input appreciated 6. HTN, CAD -Stable -Continue home dose of metoprolol 12.5mg BID and crestor 20mg daily 8. Recent Hx of GI and normocytic anemia -Stable H&H. AM labs pending -Daily CBC monitoring -Guaic negative -Continue omeprazole 40mg BID 9. Bronchial wall thickening on CXR -No obvious signs of infection -Tessalon perls and robitussin for chronic dry cough -TRC/ Nebs -NC O2 as needed *I spoke with her son and he is ok with treating her acute conditions but did not want aggressive measures. He is however not yet ready for palliative care, PHYSICIAN UNDERWRITER or do not re-hospitalize. ALPS and SC heprain for DVT ppx Diabetic Diet DNR/ DNI Problem List: 1. Dysrhythmia 2. Anasarca 3. Hyperkalemia 4. Acute renal failure 5. Chronic kidney disease (CKD) Pain Ratin Pain Location: na Pain Goal: Remain pain free Pain Plan: current plan Tomorrow's Labs & Rationales: cbc, bep
[2018-03-27 08:36] LABS: ABSOLUTE BASOPHIL COUNT 0 /CUMM (0.0-0.2); ABSOLUTE EOSINOPHIL COUNT 0 /CUMM (0.0-0.7); ABSOLUTE GRANULOCYTE CT 5.8 /CUMM (1.4-6.5); ABSOLUTE LYMPH COUNT 0.4 /CUMM (1.2-3.4); ABSOLUTE MONOCYTE COUNT 0.5 /CUMM (0.10-0.60); BASOPHIL % 0.4 % (0.0-2.0); EOSINOPHIL % 0.5 % (0-5); GRANULOCYTE % 86.3 % (42.2-75.2); HEMATOCRIT 25.6 % (37-47); MEAN CORPUSCULAR HGB 30.7 PG (27.0-31.0); MEAN CORPUSCULAR HGB CONC 33.3 G/DL (33.0-37.0); MEAN CORPUSCULAR VOLUME 92.2 FL (81.0-99.0); MEAN PLATELET VOLUME 7.2 FL (7.4-10.4); PLATELET COUNT 144 /CUMM (130-400); RBC DISTRIBUTION WIDTH 17.9 % (11.5-14.5); RED BLOOD CELL CT 2.78 /CUMM (4.20-5.40); WHITE BLOOD CELL COUNT 6.7 /CUMM (4.8-10.8)
--- NOTE | 2018-03-27 11:55 | PN- Diabetes ---
Assessment/Plan Diabetes Assessment: 83-year-old woman with a history of diabetes mellitus type 2 and chronic kidney disease was admitted for hypoglycemia. Currentlt she is on dobutamine drip. Her Cr level is 2.7. Insulin has been held. Her FSGs were 128, 122, 125, 124 and 154. Plan: continue the current diet control; monitor FSGs. will follow. Subjective Subjective: She stated that she feels well. Objective Last 24 Hrs of Vital Signs/I&O Vital Signs Date Time Temp Pulse Resp B/P B/P Pulse O2 O2 Flow FiO2 Mean Ox Delivery Rate 03/27 1008 60 108/62 03/27 0838 94 Nasal 1.0L Cannula 03/27 0817 64 112/64 03/27 0800 94 Nasal 1.0L Cannula 03/27 0653 97.5 694 20 112/62 97 Nasal Cannula 03/27 0000 Nasal 1.0L Cannula 03/26 2352 97.4 64 18 124/62 100 Nasal Cannula 03/26 2114 63 124/62 03/26 2005 95 Nasal 1.0L Cannula 03/26 1600 Nasal 1.0L Cannula 03/26 1514 97.8 61 18 98/52 99 Nasal Cannula 03/26 1327 94 Nasal 1.0L Cannula Intake & Output 03/27 1600 03/27 0800 03/27 0000 Intake Total 180 490 Output Total 400 100 Balance -220 390 Intake, IV 180 240 Intake, Oral 250 Number 0 0 Bowel Movements Output, Urine 400 100 Patient 165 lb Weight Weight Bed scale Measurement Method Findings Pertinent Lab/Ambrose Results: Laboratory Tests 03/27 03/27 03/26 03/26 0600 0005 1635 1345 Chemistry Sodium (137 - 145 mmol/L) 133 L 132 L Potassium (3.5 - 5.1 mmol/L) 5.6 H 5.4 H 5.7 H 5.2 H Chloride (98 - 107 mmol/L) 100 100 Carbon Dioxide (22 - 30 mmol/L) 22 23 Anion Gap (5 - 16) 10 9 BUN (7 - 17 mg/dL) 61 H 63 H Creatinine (0.5 - 1.0 mg/dL) 2.7 H 2.8 H Estimated GFR (>60 ml/min) 17 L 16 L BUN/Creatinine Ratio (7 - 25 %) 22.6 22.5 Hematology CBC w Diff Pending WBC Pending RBC Pending Hgb Pending Hct Pending MCV Pending MCH Pending MCHC Pending RDW Pending Plt Count Pending MPV Pending
--- NOTE | 2018-03-27 13:55 | PN- Cardiology ---
Subjective Subjective: Patient is lying comfortably in bed. She states feels about the same as yesterday. IV dobutamine running. She has diuresed about 200 cc over the last 24 hours. Objective Vital Signs and I&Os Vital Signs Date Time Temp Pulse Resp B/P B/P Pulse O2 O2 Flow FiO2 Mean Ox Delivery Rate 03/27 1008 60 108/62 03/27 0838 94 Nasal 1.0L Cannula 03/27 0817 64 112/64 03/27 0800 94 Nasal 1.0L Cannula 03/27 0653 97.5 694 20 112/62 97 Nasal Cannula 03/27 0000 Nasal 1.0L Cannula 03/26 2352 97.4 64 18 124/62 100 Nasal Cannula 03/26 2114 63 124/62 03/26 2005 95 Nasal 1.0L Cannula 03/26 1600 Nasal 1.0L Cannula 03/26 1514 97.8 61 18 98/52 99 Nasal Cannula Intake & Output 03/27 1600 03/27 0800 03/27 0000 03/26 1600 03/26 0800 03/26 0000 Intake Total 180 490 800 50 350 Output Total 400 100 300 Balance -220 390 800 50 50 Intake, IV 180 240 300 Intake, Oral 250 500 50 350 Number 0 0 1 Bowel Movements Output, Urine 400 100 300 Patient 165 lb 168 lb Weight Weight Bed scale Bed scale Measurement Method Physical Exam: General Appearance: Thin elderly female, alert, awake, oriented, mild respiratory distress Head: normal HEENT: Normal Neck: supple, JVP elevated 2 cm at 45, carotid upstrokes normal bilaterally, no masses or thyromegaly Respiratory: chest non-tender, bilateral rhonchi Cardiovascular: regular rate/rhythm, normal S1, S2, 2/6 to 3/6 systolic murmur left sternal border Abdomen: normal bowel sounds, soft, non-tender Extremities: normal inspection, bilateral edema Vascular: Pulses are 2+ and equal bilaterally Neurologic: Grossly normal/nonfocal Current Medications: Current Medications Sig/Jaylon Start time Last Medication Dose Route Stop Time Status Admin Acetaminophen 650 MG Q6P PRN 03/24 1415 AC PO Albuterol Sulfate 3 ML Q4P PRN 03/24 1845 AC 03/27 INH 0831 Aspirin 81 MG DAILY 03/24 1555 AC 03/27 PO 0822 Atorvastatin Calcium 80 MG 1700 03/24 1700 AC 03/25 PO 1714 Benzonatate 100 MG TID 03/24 1509 AC 03/27 PO 1335 Cholecalciferol 1,000 IU DAILY 03/25 0900 AC 03/26 PO 0937 Dextrose/Water 500 ML BOLUS ONE 03/26 1100 DC 03/26 IV 03/26 2059 1107 Dobutamine HCl 250 MG Q10H 03/27 0930 AC 03/27 Dextrose/Water 250 ML IV 1008 Dobutamine HCl 250 MG Q24H 03/26 1015 DC 03/26 Dextrose/Water 250 ML IV 03/27 0929 1128 Docusate Sodium 100 MG BID 03/24 2100 AC 03/26 PO 2114 Furosemide 40 MG DAILY 03/26 1941 AC 03/27 IV 0813 Guaifenesin 10 ML Q6P PRN 03/24 1715 AC PO Heparin Sodium 5,000 UNIT Q8 03/24 1421 AC 03/27 (Porcine) SC 1335 Metoprolol Tartrate 12.5 MG BID 03/24 2100 AC 03/27 PO 0817 Omeprazole 40 MG BID 03/24 2100 AC PO Polyethylene Glycol 17 GM DAILY 03/26 1048 AC 03/26 PO 1351 Potassium Chloride 40 MEQ ONCE ONE 03/27 1200 CAN PO 03/27 1201 Senna/Docusate Sodium 2 TAB DAILY 03/26 1048 AC 03/26 PO 1334 Sodium Polystyrene 60 ML ONCE ONE 03/27 1230 DC 03/27 Sulfonate PO 03/27 1231 1225 Sodium Polystyrene 60 ML ONCE ONE 03/27 1015 DC Sulfonate CO 03/27 1016 Sodium Polystyrene 30 ML ONCE ONE 03/26 2000 DC 03/26 Sulfonate CO 03/26 Results Last 48 Hrs of Labs/Mics: Laboratory Tests 03/27/18 0600: Anion Gap 10, Estimated GFR 17 L, BUN/Creatinine Ratio 22.6, CBC w Diff NO MAN DIFF REQ, RBC 2.78 L, MCV 92.2, MCH 30.7, MCHC 33.3, RDW 17.9 H, MPV 7.2 L, Gran % 86.3 H, Lymphocytes % 5.8 L, Monocytes % 7.0, Eosinophils % 0.5, Basophils % 0.4, Absolute Granulocytes 5.8, Absolute Lymphocytes 0.4 L, Absolute Monocytes 0.5, Absolute Eosinophils 0, Absolute Basophils 0 03/27/18 0005: 03/26/18 1635: Anion Gap 9, Estimated GFR 16 L, BUN/Creatinine Ratio 22.5 03/26/18 1345: 03/26/18 0705: Anion Gap 13, Estimated GFR 16 L, BUN/Creatinine Ratio 22.1, CBC w Diff NO MAN DIFF REQ, RBC 2.86 L, MCV 92.8, MCH 30.4, MCHC 32.8 L, RDW 18.4 H, MPV 7.1 L , Gran % 74.2, Lymphocytes % 11.8 L, Monocytes % 11.9 H, Eosinophils % 1.1, Basophils % 1.0, Absolute Granulocytes 3.8, Absolute Lymphocytes 0.6 L, Absolute Monocytes 0.6, Absolute Eosinophils 0.1, Absolute Basophils 0 03/25/180: Assessment/Plan Assessment/Plan Assessment: 1. Atrial arrhythmias 2. Congestive heart failure;HFrEF with ejection fraction on echo 30% 3. Pulmonary hypertension with right ventricular systolic pressure 40 mmHg on echo 4. Moderate mitral and tricuspid insufficiency 5. Anemia 6. Hyperkalemia 7. Chronic renal insufficiency Commendations: -Continue to monitor laboratories -Continue to monitor intakes, outputs, daily weights -Appropriate treatment for hyperkalemia ordered -As per Dr. Lizama, continue dobutamine infusion over the weekend. -Maintain telemetry monitoring for now. Continue telemetry? Yes
[2018-03-27 15:39] VITALS: BP 100/62
[2018-03-27 22:21] VITALS: BP 120/64
[2018-03-28 06:30] VITALS: BP 136/62
[2018-03-28 07:50] LABS: ABSOLUTE BASOPHIL COUNT 0 /CUMM (0.0-0.2); ABSOLUTE EOSINOPHIL COUNT 0 /CUMM (0.0-0.7); ABSOLUTE GRANULOCYTE CT 5.2 /CUMM (1.4-6.5); ABSOLUTE LYMPH COUNT 0.4 /CUMM (1.2-3.4); ABSOLUTE MONOCYTE COUNT 0.6 /CUMM (0.10-0.60); BASOPHIL % 0.3 % (0.0-2.0); EOSINOPHIL % 0.8 % (0-5); GRANULOCYTE % 83.9 % (42.2-75.2); HEMATOCRIT 25.3 % (37-47); MEAN CORPUSCULAR HGB 30.1 PG (27.0-31.0); MEAN CORPUSCULAR HGB CONC 32.8 G/DL (33.0-37.0); MEAN CORPUSCULAR VOLUME 92.1 FL (81.0-99.0); MEAN PLATELET VOLUME 7.2 FL (7.4-10.4); PLATELET COUNT 147 /CUMM (130-400); RBC DISTRIBUTION WIDTH 17.9 % (11.5-14.5); RED BLOOD CELL CT 2.75 /CUMM (4.20-5.40); WHITE BLOOD CELL COUNT 6.3 /CUMM (4.8-10.8)
--- NOTE | 2018-03-28 08:35 | PN- Housestaff ---
Faye MCCAULEY,Mark 03/28/18 0835: Subjective Follow-up For: Hypoglycemia Atrial arrhythmia CHF Hyperkalemia VICTORIA on CKD Tele-Events Since Last Visit: 1st degree block, sinus rhythm Subjective: no complaints today Review of Systems Constitutional: Reports: see HPI. Objective Last 24 Hrs of Vital Signs/I&O Vital Signs Date Time Temp Pulse Resp B/P B/P Pulse O2 O2 Flow FiO2 Mean Ox Delivery Rate 03/28 1400 97.7 66 20 128/60 99 Nasal 1.0L Cannula 03/28 1339 98 Nasal 1.0L Cannula 03/28 0913 74 108/60 03/28 0912 74 106/60 03/28 0800 94 Nasal 1.0L Cannula 03/28 0630 98.0 70 20 136/62 99 Nasal Cannula 03/28 0000 Nasal 1.0L Cannula 03/27 2221 98.0 67 22 120/64 97 Nasal 1.0L Cannula 03/276 70 120/64 03/27 2126 70 120/64 Intake & Output 03/28 1600 03/28 0800 03/28 0000 Intake Total 585 182.4 68.4 Output Total 500 300 300 Balance 85 -117.6 -231.6 Intake, IV 185 182.4 68.4 Intake, Oral 400 Number 1 Bowel Movements Output, Urine 500 300 300 Patient 75.07 kg Weight Physical Exam General Appearance: Alert, Oriented X3, Cooperative, No Acute Distress Cardiovascular: Regular Rate, Normal S1, Normal S2, No Murmurs Lungs: Clear to Auscultation, Normal Air Movement Abdomen: Normal Bowel Sounds, Soft, No Tenderness, No Masses Extremities: No Clubbing, No Cyanosis, Normal Pulses, No Tenderness/Swelling, 1+ LE pitting edema, 2+ upper extremity edema Current Medications: Current Medications Sig/Jaylon Start time Last Medication Dose Route Stop Time Status Admin Acetaminophen 650 MG Q6P PRN 03/24 1415 AC PO Albuterol Sulfate 3 ML Q4P PRN 03/24 1845 AC 03/27 INH 0831 Aspirin 81 MG DAILY 03/24 1555 AC 03/27 PO 0822 Atorvastatin Calcium 80 MG 1700 03/24 1700 AC 03/25 PO 1714 Benzonatate 100 MG TID 03/24 1509 AC 03/27 PO 1335 Cholecalciferol 1,000 IU DAILY 03/25 0900 AC 03/26 PO 0937 Dobutamine HCl 250 MG Q10H 03/27 0930 AC 03/28 Dextrose/Water 250 ML IV 0912 Docusate Sodium 100 MG BID 03/24 2100 AC 03/26 PO 2114 Furosemide 40 MG DAILY 03/26 1941 AC 03/28 IV 0911 Guaifenesin 10 ML Q6P PRN 03/24 1715 AC PO Heparin Sodium 5,000 UNIT Q8 03/24 1421 AC 03/28 (Porcine) SC 0539 Metoprolol Tartrate 12.5 MG BID 03/24 2100 AC 03/27 PO 0817 Omeprazole 40 MG BID 03/24 2100 AC PO Polyethylene Glycol 17 GM DAILY 03/26 1048 AC 03/26 PO 1351 Senna/Docusate Sodium 2 TAB DAILY 03/26 1048 AC 03/26 PO 1334 Last 24 Hrs of Lab/Ambrose Results Last 24 Hrs of Labs/Mics: Laboratory Tests 03/28/18 0600: Anion Gap 11, Estimated GFR 17 L, BUN/Creatinine Ratio 22.2, CBC w Diff NO MAN DIFF REQ, RBC 2.75 L, MCV 92.1, MCH 30.1, MCHC 32.8 L, RDW 17.9 H, MPV 7.2 L , Gran % 83.9 H, Lymphocytes % 6.0 L, Monocytes % 9.0, Eosinophils % 0.8, Basophils % 0.3, Absolute Granulocytes 5.2, Absolute Lymphocytes 0.4 L, Absolute Monocytes 0.6, Absolute Eosinophils 0, Absolute Basophils 0 03/27/18 1730: Anion Gap 10, Estimated GFR 17 L, BUN/Creatinine Ratio 23.0 Assessment/Plan Assessment: 83 year old female BIBA from longterm for change in mental status with hypoglycemia diabetes mellitus with hypoglycemia: Resolved Levemir discontinued Blood sugars >100 Endocrinology following Accuchecks TIDAC/HS Novolog sliding scale insuline HbA1c 5.9 Hyperkalemia resolving with kayexalate Atrial Bigeminy on EKG r/o Afib -Admission EKG showed atrial bigeminy with PACs with concern for PAF -Cardiology following -ECHO LVEF 30%. -ACS ruled out. Trops have remained negative x [address] changes on EKG VICTORIA on CKD -Stable at 2.7 -Recent baseline Cr has been around 1.8 -Low dose dobutamine drip to increase renal perfusion -Nephrology consult placed Decompensated systolic CHF with anasarca Repeat CXR shows interstitial pulm edema ECHO shows a 30% EF with normal diastolic fuction Dobutamine drip started yesterday to improve inotropy Continue lasix Carmona for I/O, check daily weights Trend renal function CAD Continue metoprolol 12.5mg BID and crestor 20mg daily PO PPI Diabetic Diet DVT ppx-heparin subc DNR/DNI Problem List: 1. Hypoglycemia 2. Dysrhythmia 3. Anasarca 4. Hyperkalemia 5. Acute renal failure 6. Chronic kidney disease (CKD) Pain Ratin Pain Location: n/a Pain Goal: Pain 4 or less Pain Plan: prn Tomorrow's Labs & Rationales: Joel Andrew MD 03/28/18 1533: Attending MD Review Statement Attending Statement Attending MD Statement: examined this patient, discuss w/resident/PA/WREATH MACHINE OPERATOR, agreed w/resident/PA/WREATH MACHINE OPERATOR, discussed with nursing Attending Assessment/Plan: Patient seen/examined bedside. She is comfortably resting in bed. Denies any specific complaints. The patient still refuses multiple medications. Chest xray with interstitial edema. Cr 2.7. VICTORIA on CKD stage 4-5. Patient creatinine is worsening possible cardiorenal syndrome or possible hypotension with ATN. Cardiology recommend dobutamine drip. Nephrology consult. Patient got kayexalate yesterday. Low potassium diet. Bilateral upper extremity swelling: More swelling on the right upper extremity. Will obtain right upper extremity ultrasound. Diet control for diabetes. Endocrinology recommendations to follow Constipation: No evidence of acute radiographic abnormality in the abdomen. Patient been having bowel movements Acute on chronic CHF systolic EF 30% exacerbation with interstitial edema received lasix intially and now being started on dobutamine drip. Plan to continue dobutamine drip over the weekend until Thursday. GI/DVT prophylaxis - Heparin SQ
--- NOTE | 2018-03-28 11:49 | PN- Diabetes ---
Assessment/Plan Diabetes Assessment: 83-year-old woman with a history of diabetes mellitus type 2 and chronic kidney disease was admitted for hypoglycemia. Currentlt she is on dobutamine drip in dextrose. Her Cr level is 2.7. Insulin has been held. Her FSGs were 154, 129, 131 and 110. She hasn't been eating well. Plan: continue holding off on insulin; monitor FSGs; will follow. Subjective Subjective: She feels okay. Objective Last 24 Hrs of Vital Signs/I&O Vital Signs Date Time Temp Pulse Resp B/P B/P Pulse O2 O2 Flow FiO2 Mean Ox Delivery Rate 03/28 0913 74 108/60 03/28 0912 74 106/60 03/28 0800 94 Nasal 1.0L Cannula 03/28 0630 98.0 70 20 136/62 99 Nasal Cannula 03/28 0000 Nasal 1.0L Cannula 03/27 2221 98.0 67 22 120/64 97 Nasal 1.0L Cannula 03/27 2126 70 120/64 03/27 2126 70 120/64 03/27 1600 Nasal 1.0L Cannula 03/27 1539 97.3 65 20 100/62 91 Nasal 1.0L Cannula Intake & Output 03/28 1600 03/28 0800 03/28 0000 Intake Total 182.4 68.4 Output Total 300 300 Balance -117.6 -231.6 Intake, IV 182.4 68.4 Output, Urine 300 300 Patient 166 lb Weight Findings Pertinent Lab/Ambrose Results: Laboratory Tests 03/28 03/27 0600 1730 Chemistry Sodium (137 - 145 mmol/L) 134 L 132 L Potassium (3.5 - 5.1 mmol/L) 4.7 5.1 Chloride (98 - 107 mmol/L) 100 99 Carbon Dioxide (22 - 30 mmol/L) 23 22 Anion Gap (5 - 16) 11 10 BUN (7 - 17 mg/dL) 60 H 62 H Creatinine (0.5 - 1.0 mg/dL) 2.7 H 2.7 H Estimated GFR (>60 ml/min) 17 L 17 L BUN/Creatinine Ratio (7 - 25 %) 22.2 23.0 Hematology CBC w Diff NO MAN DIFF REQ WBC (4.8 - 10.8 /CUMM) 6.3 RBC (4.20 - 5.40 /CUMM) 2.75 L Hgb (12.0 - 16.0 G/DL) 8.3 L Hct (37 - 47 %) 25.3 L MCV (81.0 - 99.0 FL) 92.1 MCH (27.0 - 31.0 PG) 30.1 MCHC (33.0 - 37.0 G/DL) 32.8 L RDW (11.5 - 14.5 %) 17.9 H Plt Count (130 - 400 /CUMM) 147 MPV (7.4 - 10.4 FL) 7.2 L Gran % (42.2 - 75.2 %) 83.9 H Lymphocytes % (20.5 - 51.1 %) 6.0 L Monocytes % (1.7 - 9.3 %) 9.0 Eosinophils % (0 - 5 %) 0.8 Basophils % (0.0 - 2.0 %) 0.3 Absolute Granulocytes (1.4 - 6.5 /CUMM) 5.2 Absolute Lymphocytes (1.2 - 3.4 /CUMM) 0.4 L Absolute Monocytes (0.10 - 0.60 /CUMM) 0.6 Absolute Eosinophils (0.0 - 0.7 /CUMM) 0 Absolute Basophils (0.0 - 0.2 /CUMM) 0
[2018-03-28 14:00] VITALS: BP 128/60
--- NOTE | 2018-03-28 14:59 | ULTRASOUND REPORT ---
EXAMINATION: US UNILATERAL VENOUS DOPPLER UPPER EXTREMITY, RIGHT CLINICAL INFORMATION: Right upper extremity swelling and edema. COMPARISON: None TECHNIQUE: Color-flow triplex imaging with spectral analysis and compression Doppler were performed on the right upper extremity. FINDINGS: Respiratory variation, normal compression and augmented flow are noted throughout the upper extremity where compression is available. The visualized internal jugular innominate, subclavian, axillary, brachial, basilic, cephalic veins show no evidence of deep venous thrombosis. Mild subcutaneous edema throughout the right upper extremity. IMPRESSION: No evidence of DVT involving the right upper extremity.
--- NOTE | 2018-03-28 15:02 | PN- Cardiology ---
Subjective Subjective: No significant change in clinical status. The patient claims to feel about the same. Continuing on IV dobutamine drip. Objective Vital Signs and I&Os Vital Signs Date Time Temp Pulse Resp B/P B/P Pulse O2 O2 Flow FiO2 Mean Ox Delivery Rate 03/28 1339 98 Nasal 1.0L Cannula 03/28 0913 74 108/60 03/28 0912 74 106/60 03/28 0800 94 Nasal 1.0L Cannula 03/28 0630 98.0 70 20 136/62 99 Nasal Cannula 03/28 0000 Nasal 1.0L Cannula 03/27 2221 98.0 67 22 120/64 97 Nasal 1.0L Cannula 03/27 2126 70 120/64 03/27 2126 70 120/64 03/27 1600 Nasal 1.0L Cannula 03/27 1539 97.3 65 20 100/62 91 Nasal 1.0L Cannula Intake & Output 03/28 1600 03/28 0800 03/28 0000 03/27 1600 03/27 0800 03/27 0000 Intake Total 585 182.4 68.4 685 180 490 Output Total 500 300 300 300 400 100 Balance 85 -117.6 -231.6 385 -220 390 Intake, IV 185 182.4 68.4 185 180 240 Intake, Oral 400 500 250 Number 1 1 0 0 Bowel Movements Output, Urine 500 300 300 300 400 100 Patient 166 lb 165 lb Weight Weight Bed scale Measurement Method Physical Exam: General Appearance: Thin elderly female, alert, awake, oriented, mild respiratory distress Head: normal HEENT: Normal Neck: supple, JVP elevated 2 cm at 45, carotid upstrokes normal bilaterally, no masses or thyromegaly Respiratory: chest non-tender, bilateral rhonchi Cardiovascular: regular rate/rhythm, normal S1, S2, 2/6 to 3/6 systolic murmur left sternal border Abdomen: normal bowel sounds, soft, non-tender Extremities: normal inspection, bilateral edema Vascular: Pulses are 2+ and equal bilaterally Neurologic: Grossly normal/nonfocal Current Medications: Current Medications Sig/Jaylon Start time Last Medication Dose Route Stop Time Status Admin Acetaminophen 650 MG Q6P PRN 03/24 1415 AC PO Albuterol Sulfate 3 ML Q4P PRN 03/24 1845 AC 03/27 INH 0831 Aspirin 81 MG DAILY 03/24 1555 AC 03/27 PO 0822 Atorvastatin Calcium 80 MG 1700 03/24 1700 AC 03/25 PO 1714 Benzonatate 100 MG TID 03/24 1509 AC 03/27 PO 1335 Cholecalciferol 1,000 IU DAILY 03/25 0900 AC 03/26 PO 0937 Dobutamine HCl 250 MG Q10H 03/27 0930 AC 03/28 Dextrose/Water 250 ML IV 0912 Docusate Sodium 100 MG BID 03/24 2100 AC 03/26 PO 2114 Furosemide 40 MG DAILY 03/26 1941 AC 03/28 IV 0911 Guaifenesin 10 ML Q6P PRN 03/24 1715 AC PO Heparin Sodium 5,000 UNIT Q8 03/24 1421 AC 03/28 (Porcine) SC 0539 Metoprolol Tartrate 12.5 MG BID 03/24 2100 AC 03/27 PO 0817 Omeprazole 40 MG BID 03/24 2100 AC PO Polyethylene Glycol 17 GM DAILY 03/26 1048 AC 03/26 PO 1351 Senna/Docusate Sodium 2 TAB DAILY 03/26 1048 AC 03/26 PO 1334 Results Last 48 Hrs of Labs/Mics: Laboratory Tests 03/28/18 06: Anion Gap 11, Estimated GFR 17 L, BUN/Creatinine Ratio 22.2, CBC w Diff NO MAN DIFF REQ, RBC 2.75 L, MCV 92.1, MCH 30.1, MCHC 32.8 L, RDW 17.9 H, MPV 7.2 L , Gran % 83.9 H, Lymphocytes % 6.0 L, Monocytes % 9.0, Eosinophils % 0.8, Basophils % 0.3, Absolute Granulocytes 5.2, Absolute Lymphocytes 0.4 L, Absolute Monocytes 0.6, Absolute Eosinophils 0, Absolute Basophils 0 03/27/18 173: Anion Gap 10, Estimated GFR 17 L, BUN/Creatinine Ratio 23.0 03/27/18 06: Anion Gap 10, Estimated GFR 17 L, BUN/Creatinine Ratio 22.6, CBC w Diff NO MAN DIFF REQ, RBC 2.78 L, MCV 92.2, MCH 30.7, MCHC 33.3, RDW 17.9 H, MPV 7.2 L, Gran % 86.3 H, Lymphocytes % 5.8 L, Monocytes % 7.0, Eosinophils % 0.5, Basophils % 0.4, Absolute Granulocytes 5.8, Absolute Lymphocytes 0.4 L, Absolute Monocytes 0.5, Absolute Eosinophils 0, Absolute Basophils 0 03/27/18 0005: 03/26/18 1635: Anion Gap 9, Estimated GFR 16 L, BUN/Creatinine Ratio 22.5 Microbiology 03/26 2130 URINE ROUT: Urine Culture - COMP Assessment/Plan Assessment/Plan Assessment: 1. Atrial arrhythmias 2. Congestive heart failure;HFrEF with ejection fraction on echo 30% 3. Pulmonary hypertension with right ventricular systolic pressure 40 mmHg on echo 4. Moderate mitral and tricuspid insufficiency 5. Anemia-unchanged 6. Hyperkalemia-improved today at 4.7 7. Chronic renal insufficiency-creatinine unchanged at 2.7 Commendations: -Continue to monitor laboratories -Continue to monitor intakes, outputs, daily weights -Appropriate treatment for hyperkalemia ordered -As per Dr. Lizama, continue dobutamine infusion over the weekend. As of the present time, the patient's diuresis has been minimal. Her creatinine has remained about the same. She remains hemodynamically stable. -Maintain telemetry monitoring for now. Continue telemetry? Yes
[2018-03-28 22:03] VITALS: BP 142/60
[2018-03-29 06:42] VITALS: BP 110/52
--- NOTE | 2018-03-29 07:37 | PN- Diabetes ---
Assessment/Plan Diabetes Assessment: Patient states she feels okay. She remains on dobutamine. She is completely off insulin and her blood sugars are in a good range. Plan: Suggest continue off insulin and just on diet alone for diabetes. Subjective Subjective: Feels okay Review of Systems Constitutional: Denies: chills, fever. Cardiovascular: Denies: chest pain. Respiratory: Denies: cough, short of breath. Gastrointestinal: Denies: abdominal pain. Skin: Reports: no symptoms. Objective Last 24 Hrs of Vital Signs/I&O Vital Signs Date Time Temp Pulse Resp B/P B/P Pulse O2 O2 Flow FiO2 Mean Ox Delivery Rate 03/29 0642 98.6 104 20 110/52 97 Nasal 1.0L Cannula 03/29 0000 Nasal 1.0L Cannula 03/28 2203 97.2 78 20 142/60 98 Nasal 1.0L Cannula 03/28/03/28 1600 Nasal 1.0L Cannula 03/28 1400 97.7 66 20 128/60 99 Nasal 1.0L Cannula 03/28 1339 98 Nasal 1.0L Cannula 03/28 913 74 108/03/28 0912 74 10603/28 0800 94 Nasal 1.0L Cannula Intake & Output 03/29 0800 03/29 0000 03/28 1600 Intake Total 182.4 141.2 585 Output Total 240 350 500 Balance -57.6 -208.8 85 Intake, IV 182.4 91.2 185 Intake, Oral 50 400 Number 1 Bowel Movements Output, Urine 240 350 500 Patient 168 lb Weight Vital Signs Date Time Temp Pulse Resp B/P B/P Pulse O2 O2 Flow FiO2 Mean Ox Delivery Rate 03/29 0642 98.6 104 20 110/52 97 Nasal 1.0L Cannula 03/29 0000 Nasal 1.0L Cannula 03/28 2203 97.2 78 20 142/60 98 Nasal 1.0L Cannula 03/28 1600 Nasal 1.0L Cannula 03/28 1400 97.7 66 20 128/60 99 Nasal 1.0L Cannula 03/28 1339 98 Nasal 1.0L Cannula 03/28 0913 74 108/03/28 0912 74 10603/28 0800 94 Nasal 1.0L Cannula Intake & Output 03/29 0803/29 0000 03/28 1600 Intake Total 182.4 141.2 585 Output Total 240 350 500 Balance -57.6 -208.8 85 Intake, IV 182.4 91.2 185 Intake, Oral 50 400 Number 1 Bowel Movements Output, Urine 240 350 500 Patient 168 lb Weight Physical Exam General Appearance: alert, awake, comfortable Head: normal appearance Respiratory: normal breath sounds Cardiovascular: regular rate/rhythm Abdomen: normal bowel sounds, soft Extremities: normal inspection Current Medications: Current Medications Sig/Jaylon Start time Last Medication Dose Route Stop Time Status Admin Acetaminophen 650 MG Q6P PRN 03/24 1415 AC PO Albuterol Sulfate 3 ML Q4P PRN 03/24 1845 AC 03/27 INH 0831 Aspirin 81 MG DAILY 03/24 1555 AC 03/27 PO 0822 Atorvastatin Calcium 80 MG 1700 03/24 1700 AC 03/25 PO 1714 Benzonatate 100 MG TID 03/24 1509 AC 03/27 PO 1335 Cholecalciferol 1,000 IU DAILY 03/25 0900 AC 03/26 PO 0937 Dobutamine HCl 250 MG Q10H 03/27 0930 AC 03/28 Dextrose/Water 250 ML IV 2044 Docusate Sodium 100 MG BID 03/24 2100 AC 03/26 PO 2114 Furosemide 40 MG DAILY 03/26 1941 AC 03/28 IV 0911 Guaifenesin 10 ML Q6P PRN 03/24 1715 AC PO Heparin Sodium 5,000 UNIT Q8 03/24 1421 AC 03/28 (Porcine) SC 2043 Metoprolol Tartrate 12.5 MG BID 03/24 2100 AC 03/27 PO 0817 Omeprazole 40 MG BID 03/24 2100 AC PO Polyethylene Glycol 17 GM DAILY 03/26 1048 AC 03/26 PO 1351 Senna/Docusate Sodium 2 TAB DAILY 03/26 1048 AC 03/26 PO 1334 Findings Pertinent Lab/Ambrose Results: Laboratory Tests 03/29 03/28 03/27 0620 0600 1730 Chemistry Sodium (137 - 145 mmol/L) Pending 134 L 132 L Potassium (3.5 - 5.1 mmol/L) Pending 4.7 5.1 Chloride (98 - 107 mmol/L) Pending 100 99 Carbon Dioxide (22 - 30 mmol/L) Pending 23 22 Anion Gap (5 - 16) Pending 11 10 BUN (7 - 17 mg/dL) Pending 60 H 62 H Creatinine (0.5 - 1.0 mg/dL) Pending 2.7 H 2.7 H Estimated GFR (>60 ml/min) 17 L 17 L BUN/Creatinine Ratio (7 - 25 %) Pending 22.2 23.0 Hematology CBC w Diff NO MAN DIFF REQ WBC (4.8 - 10.8 /CUMM) 6.3 RBC (4.20 - 5.40 /CUMM) 2.75 L Hgb (12.0 - 16.0 G/DL) 8.3 L Hct (37 - 47 %) 25.3 L MCV (81.0 - 99.0 FL) 92.1 MCH (27.0 - 31.0 PG) 30.1 MCHC (33.0 - 37.0 G/DL) 32.8 L RDW (11.5 - 14.5 %) 17.9 H Plt Count (130 - 400 /CUMM) 147 MPV (7.4 - 10.4 FL) 7.2 L Gran % (42.2 - 75.2 %) 83.9 H Lymphocytes % (20.5 - 51.1 %) 6.0 L Monocytes % (1.7 - 9.3 %) 9.0 Eosinophils % (0 - 5 %) 0.8 Basophils % (0.0 - 2.0 %) 0.3 Absolute Granulocytes (1.4 - 6.5 /CUMM) 5.2 Absolute Lymphocytes (1.2 - 3.4 /CUMM) 0.4 L Absolute Monocytes (0.10 - 0.60 /CUMM) 0.6 Absolute Eosinophils (0.0 - 0.7 /CUMM) 0 Absolute Basophils (0.0 - 0.2 /CUMM) 0
--- NOTE | 2018-03-29 08:21 | PN- Housestaff ---
Markus MCCAULEY,Yas 03/29/18 0821: Subjective Follow-up For: Hypoglycemia Atrial arrhythmia CHF Hyperkalemia VICTORIA on CKD Complaints: no complaints Tele-Events Since Last Visit: SR 80 to 85 with PACs and PVCs Subjective: Laying in bed. Denies any symptoms. Had an ok night. RN says she has been refusing all her oral meds since the weekend and has only been getting dobutamine and Lasix since they are IV. Her right arm was swollen yesterday but dopplers r/o DVT. Review of Systems Constitutional: Reports: no symptoms. Objective Last 24 Hrs of Vital Signs/I&O Vital Signs Date Time Temp Pulse Resp B/P B/P Pulse O2 O2 Flow FiO2 Mean Ox Delivery Rate 03/29 0642 98.6 104 20 110/52 97 Nasal 1.0L Cannula 03/29 0000 Nasal 1.0L Cannula 03/28 2203 97.2 78 20 142/60 98 Nasal 1.0L Cannula 03/28 2051 142/60 03/28 2044 142/60 03/28 1600 Nasal 1.0L Cannula 03/28 1400 97.7 66 20 128/60 99 Nasal 1.0L Cannula 03/28 1339 98 Nasal 1.0L Cannula 03/28 0913 74 108/60 03/28 0912 74 106/60 Intake & Output 03/29 1600 03/29 0800 03/29 0000 Intake Total 182.4 141.2 Output Total 240 350 Balance -57.6 -208.8 Intake, IV 182.4 91.2 Intake, Oral 50 Output, Urine 240 350 Patient 168 lb Weight Physical Exam General Appearance: Alert, Cooperative, No Acute Distress Skin: small venous stasis ulcer on back of rt ankle Cardiovascular: Regular Rate (with extra beats), Normal S1, Normal S2 Lungs: crackles thoughout Abdomen: Normal Bowel Sounds, No Tenderness, firm Extremities: 1+ pedal edema on bilateral LE, 2+ pedal edema on bilateral UL. Bruising over the Rt elbow Current Medications: Current Medications Sig/Jaylon Start time Last Medication Dose Route Stop Time Status Admin Acetaminophen 650 MG Q6P PRN 03/24 1415 AC PO Albuterol Sulfate 3 ML Q4P PRN 03/24 1845 AC 03/27 INH 0831 Aspirin 81 MG DAILY 03/24 1555 AC 03/27 PO 0822 Atorvastatin Calcium 80 MG 1700 03/24 1700 AC 03/25 PO 1714 Benzonatate 100 MG TID 03/24 1509 AC 03/27 PO 1335 Cholecalciferol 1,000 IU DAILY 03/25 0900 AC 03/26 PO 0937 Dobutamine HCl 250 MG Q10H 03/27 0930 AC 03/28 Dextrose/Water 250 ML IV 2044 Docusate Sodium 100 MG BID 03/24 2100 AC 03/26 PO 2114 Furosemide 40 MG DAILY 03/26 1941 AC 03/28 IV 0911 Guaifenesin 10 ML Q6P PRN 03/24 1715 AC PO Heparin Sodium 5,000 UNIT Q8 03/24 1421 AC 03/28 (Porcine) SC 204 Metoprolol Tartrate 12.5 MG BID 03/24 2100 AC 03/27 PO 0817 Omeprazole 40 MG BID 03/24 2100 AC PO Polyethylene Glycol 17 GM DAILY 03/26 1048 AC 03/26 PO 1351 Senna/Docusate Sodium 2 TAB DAILY 03/26 1048 AC 03/26 PO 1334 Last 24 Hrs of Lab/Ambrose Results Last 24 Hrs of Labs/Mics: Laboratory Tests 03/29/18 0620: Sodium Pending, Potassium Pending, Chloride Pending, Carbon Dioxide Pending, Anion Gap Pending, BUN Pending, Creatinine Pending, BUN/Creatinine Ratio Pending Lines/Diet/Fluids Lines: peripheral lines Assessment/Plan Assessment: 83 year old female BIBA from custodial for change in mental status with hypoglycemia #Diabetes mellitus with hypoglycemia: -Resolved -Levemir discontinued -Blood sugars stable >100 but <200 -Endocrinology following -Accuchecks TIDAC/HS -Novolog sliding scale insulin -HbA1c 5.9 #Hyperkalemia -Resolved #Atrial Bigeminy on EKG r/o Afib -Admission EKG showed atrial bigeminy with PACs with concern for PAF -Cardiology following -ECHO LVEF 30%. -ACS ruled out. Trops have remained negative x [address] changes on EKG #VICTORIA on CKD -Slightly improved from 2.7 to 2.6; could be her new baseline -Recent baseline Cr has been around 1.8 -Low dose dobutamine drip to increase renal perfusion -Nephrology following #Decompensated systolic CHF with anasarca -Anasarca improving -ECHO shows a 30% EF with normal diastolic fuction -On Dobutamine drip to improve inotropy -Continue lasix -DC Carmona, check daily weights -Trend renal function #CAD -Continue metoprolol 12.5mg BID and crestor 20mg daily #Small venous Stasis ulcer on back of rt ankle -Keep area elevated as much as possible -Daily wound dressing -DC planning once cleared cardiology and Nephrology PO PPI Diabetic Diet DVT ppx-heparin subc DNR/DNI Problem List: 1. Acute renal failure 2. Chronic kidney disease (CKD) 3. Anasarca Pain Ratin Pain Location: na Pain Goal: Remain pain free Pain Plan: na Tomorrow's Labs & Rationales: cbc,bep Namita Fine 03/29/18 0952: Attending MD Review Statement Attending Statement Attending MD Statement: examined this patient, discuss w/resident/PA/COOLING MACHINE OPERATOR, agreed w/resident/PA/COOLING MACHINE OPERATOR, discussed with family, reviewed EMR data (avail), discussed with nursing, discussed with case mgmt, reviewed images, amended to note Attending Assessment/Plan: Patient been refusing her oral meds. She is non coperative with medications. Patient is on dubatmine drip 5 mcg with blood pressure in acceptable range. She did received lasix 40 mg iv and her extremity edema alongwith shortness of breath has improved. Patient did have bowel movement with kayexlate with correction of hyperkalemia. Her kidney fucntions are stabilsiing around Cr 2.6. Endocrinologu with recommendation of holding insulin for now. Follow cardiology and nephrology. Updated family who is in agreement to ongoing management.
[2018-03-29 14:47] VITALS: BP 118/52
--- NOTE | 2018-03-29 21:49 | PN- Cardiology ---
Subjective Subjective: * Patient feels much improved. * creatinine is 2.6 * decreasing H/H Objective Vital Signs and I&Os Vital Signs Date Time Temp Pulse Resp B/P B/P Pulse O2 O2 Flow FiO2 Mean Ox Delivery Rate 03/29 2054 74 108/58 03/29 2053 74 10858 03/29 1600 Nasal 1.0L Cannula 03/29 1447 97.9 68 20 118/52 97 Nasal 1.0L Cannula 03/29 1003 82 112/60 03/29 1002 84 112/60 03/29 0957 Nasal 1.0L Cannula 03/29 0800 95 Nasal 1.0L Cannula 03/29 0642 98.6 104 20 110/52 97 Nasal 1.0L Cannula 03/29 0000 Nasal 1.0L Cannula 03/28 2203 97.2 78 20 142/60 98 Nasal 1.0L Cannula Intake & Output 03/29 1600 03/29 0800 03/29 0000 03/28 1600 03/28 0800 03/28 0000 Intake Total 182.4 141.2 585 182.4 68.4 Output Total 450 240 350 500 300 300 Balance -450 -57.6 -208.8 85 -117.6 -231.6 Intake, IV 182.4 91.2 185 182.4 68.4 Intake, Oral 50 400 Number 1 1 Bowel Movements Output, Urine 450 240 350 500 300 300 Patient 168 lb 168 lb 166 lb Weight Physical Exam: General: WD/WN female in NAD; awake and responsive HEENT: NC/AT, PERRL, EOMI Neck: no JVD, no carotid bruit Heart: RRR with ectopy Lungs: clear bilaterally ABdomen: firm, NT, +ve bowel sounds Extremities: 1+ bilateral leg edema with erythema Assessment/Plan Assessment/Plan * This patient has had multiple ECG's that showed an irregular rhythm with very small P waves. She is in a sinus rhythm at this time. We will continue to monitor on telemetry. * This patient also had bilateral leg edema and pulmonary edema in the setting of mild renal insufficiency which is improving. An echocardiogram showed a low EF. Obtain a PA and lateral chest X-ray. If improvement in pulmonary edema then we will stop her dobutamine. Continue Lasix 40mg IV daily for now. Continue to monitor her BUN, creatinine and potassium. Continue Metoprolol, aspirin and a statin as previously prescribed. * Agree with checking for an obstructive process. Please check post void residuals. Continue telemetry? Yes
[2018-03-29 22:50] VITALS: BP 108/58
[2018-03-30 06:00] VITALS: BP 114/60
[2018-03-30 07:53] LABS: ABSOLUTE BASOPHIL COUNT 0 /CUMM (0.0-0.2); ABSOLUTE EOSINOPHIL COUNT 0.1 /CUMM (0.0-0.7); ABSOLUTE GRANULOCYTE CT 4.8 /CUMM (1.4-6.5); ABSOLUTE LYMPH COUNT 0.4 /CUMM (1.2-3.4); ABSOLUTE MONOCYTE COUNT 0.6 /CUMM (0.10-0.60); BASOPHIL % 0.2 % (0.0-2.0); GRANULOCYTE % 81.8 % (42.2-75.2); HEMATOCRIT 25.8 % (37-47); MEAN CORPUSCULAR HGB 29.4 PG (27.0-31.0); MEAN CORPUSCULAR VOLUME 91.9 FL (81.0-99.0); PLATELET COUNT 150 /CUMM (130-400); RBC DISTRIBUTION WIDTH 17.6 % (11.5-14.5); WHITE BLOOD CELL COUNT 5.8 /CUMM (4.8-10.8)
--- NOTE | 2018-03-30 08:24 | PN- Housestaff ---
Markus MCCAULEY,Yas 03/30/18 0823: Subjective Follow-up For: VICTORIA on CKD Hypoglycemia Atrial arrhythmia CHF Hyperkalemia Complaints: no complaints Tele-Events Since Last Visit: nsr, 1st degree heart block, 67-74, PVCs Subjective: Lying awake in bed, expresses no symptoms Review of Systems Constitutional: Reports: no symptoms. Objective Last 24 Hrs of Vital Signs/I&O Vital Signs Date Time Temp Pulse Resp B/P B/P Pulse O2 O2 Flow FiO2 Mean Ox Delivery Rate 03/30 0828 116/60 03/30 0600 98.6 75 18 114/60 98 03/30 0101 Nasal 1.0L Cannula 03/29 2250 98.9 72 16 108/58 98 Nasal 1.0L Cannula 03/29 2054 74 108/58 03/29 205 74 108/58 03/29 1600 Nasal 1.0L Cannula 03/29 1447 97.9 68 20 118/52 97 Nasal 1.0L Cannula 03/29 1003 82 112/60 03/29 1002 84 112/60 03/29 0957 Nasal 1.0L Cannula Intake & Output 03/30 1600 03/30 0803/30 0000 Intake Total 160 Output Total 200 200 Balance -40 -200 Intake, IV 160 Output, Urine 200 200 Patient 165 lb Weight Physical Exam General Appearance: Alert, Oriented X3, Cooperative, No Acute Distress Skin: bandaged small venous ulcer behind Rt lower leg HEENT: Mucous Membr. moist/pink Cardiovascular: Regular Rate, Normal S1, Normal S2 Lungs: marked improvementin crackles on chest exam, improved areation Abdomen: No Tenderness, firm Extremities: trace pedal edema bilaterally Current Medications: Current Medications Sig/Jaylon Start time Last Medication Dose Route Stop Time Status Admin Acetaminophen 650 MG Q6P PRN 03/24 1415 AC PO Albuterol Sulfate 3 ML Q4P PRN 03/24 1845 DC 03/27 INH 0831 Aspirin 81 MG DAILY 03/24 1555 AC 03/29 PO 1002 Atorvastatin Calcium 80 MG 1700 03/24 1700 AC 03/25 PO 1714 Benzonatate 100 MG TID 03/24 1509 AC 03/27 PO 1335 Cholecalciferol 1,000 IU DAILY 03/25 0900 AC 03/26 PO 0937 Dobutamine HCl 250 MG Q10H 03/27 0930 AC 03/30 Dextrose/Water 250 ML IV 0828 Docusate Sodium 100 MG BID 03/24 2100 AC 03/29 PO 2054 Furosemide 40 MG DAILY 03/26 1941 AC 03/29 IV 1002 Guaifenesin 10 ML Q6P PRN 03/24 1715 AC PO Heparin Sodium 5,000 UNIT Q8 03/24 1421 AC 03/29 (Porcine) SC 1456 Metoprolol Tartrate 12.5 MG BID 03/24 2100 AC 03/29 PO 2052 Omeprazole 40 MG BID 03/24 2100 AC PO Polyethylene Glycol 17 GM DAILY 03/26 1048 AC 03/26 PO 1351 Senna/Docusate Sodium 2 TAB DAILY 03/26 1048 AC 03/26 PO 1334 Last 24 Hrs of Lab/Ambrose Results Last 24 Hrs of Labs/Mics: Laboratory Tests 03/30/18611: Anion Gap 10, Estimated GFR 18 L, BUN/Creatinine Ratio 22.4, CBC w Diff NO MAN DIFF REQ, RBC 2.80 L, MCV 91.9, MCH 29.4, MCHC 32.0 L, RDW 17.6 H, MPV 7.0 L , Gran % 81.8 H, Lymphocytes % 7.3 L, Monocytes % 9.7 H, Eosinophils % 1.0, Basophils % 0.2, Absolute Granulocytes 4.8, Absolute Lymphocytes 0.4 L, Absolute Monocytes 0.6, Absolute Eosinophils 0.1, Absolute Basophils 0 Orders Fingersticks (last 24 hrs): 89-115 Lines/Diet/Fluids Lines: peripheral lines Assessment/Plan Assessment: 83 year old female BIBA from residential for change in mental status with severe hypoglycemia. Patient has been refusing most of her oral meds, she has mostly been recieving only her IV meds. #VICTORIA on CKD -Gradually improving -Creatinine dropped from 2.6 to 2.5 -Continue low dose dobutamine drip to increase renal perfusion -Renal US; Right kidney atrophic without gross hydronephrosis. Left kidney not visualized due to limited view -Will continue to monitor #Decompensated systolic CHF with anasarca -Anasarca markedly improved -ECHO shows a 30% EF with normal diastolic fuction -On Dobutamine drip to improve inotropy -Continue lasix 40mg daily -Willcheck CXR-PA/lat. If no pulm edema, will stop dobutamine drip per cardio -Cont Mathew check daily weights -Trend renal function #Acute on Chronic normocytic anemia -H&H has been gradually dropping (8.2/25.8 today from 8.3/25.3 two days ago) -Likely due to CKD -No obvious bleeding from any site -Will monitor #Diabetes mellitus with hypoglycemia-Resolved -Levemir discontinued -Blood sugars stable -Poor PO intake overall -Endocrinology following -Accuchecks TIDAC/HS -HbA1c 5.9 #Hyperkalemia -Resolved #Atrial arrythmias -Cardiology following -ECHO LVEF 30%. -ACS ruled out #CAD -Continue metoprolol 12.5mg BID and crestor 20mg daily. #Poor oral intake -Will get a nutrition consult #Small venous stasis ulcer on back of rt lower leg -Keep area elevated as much as possible -Daily wound dressing -OOB to chair -DC planning once cleared cardiology and Nephrology PO PPI Diabetic Diet DVT ppx-heparin subc DNR/DNI Problem List: 1. Acute renal failure 2. Chronic kidney disease (CKD) 3. Anasarca Pain Ratin Pain Location: na Pain Goal: Remain pain free Pain Plan: na Tomorrow's Labs & Rationales: cbc, bep Namita Fine 03/30/18 1031: Attending MD Review Statement Attending Statement Attending MD Statement: examined this patient, discuss w/resident/PA/FRUIT PICKER, agreed w/resident/PA/FRUIT PICKER, discussed with family, reviewed EMR data (avail), discussed with nursing, discussed with case mgmt, reviewed images, amended to note Attending Assessment/Plan: Patient deneis any new complaints. Patient is still non copeartive. Encourage PO intake. Vital stable. Cr 2.5 this am. Obtain chest xray and follow up cardiology. Patient is on dobutamine drip and iv lasix with improvement in pulmonary edema. Insulin stopped 2/2 hypoglycemia. Family updated and wishes conservative measures for now. DNR/DNI.
[2018-03-30 13:57] VITALS: BP 90/50
--- NOTE | 2018-03-30 16:44 | RADIOLOGY REPORT ---
EXAMINATION: XR CHEST CLINICAL INFORMATION: Pulmonary edema. CHF. COMPARISON: Chest x-ray dated 03/25/2018. TECHNIQUE: 2 views of the chest were obtained. FINDINGS: The patient is status post median sternotomy and CABG surgery. The cardiomediastinal silhouette is enlarged. Low lung volumes are seen with diffusely increased reticular opacities in the lungs, consistent with pulmonary edema. There may be a trace right-sided pleural effusion. No pneumothorax is seen. Osteopenia is noted. There is partial inclusion of right proximal humeral fracture fixation hardware. IMPRESSION: Findings are consistent with congestive heart failure with trace right-sided pleural effusion. Allowing for differences in technique, findings may have progressed slightly compared to the previous study.
--- NOTE | 2018-03-30 20:12 | PN- Cardiology ---
Subjective Subjective: * No complaints. * creatinine 2.5 * low H/H Objective Vital Signs and I&Os Vital Signs Date Time Temp Pulse Resp B/P B/P Pulse O2 O2 Flow FiO2 Mean Ox Delivery Rate 03/30 1357 97.9 74 20 90/50 99 Nasal 1.0L Cannula 03/30 1003 76 126/64 03/30 0828 116/60 03/30 0800 Nasal 1.0L Cannula 03/30 0600 98.6 75 18 114/60 98 03/30 0101 Nasal 1.0L Cannula 03/29 2250 98.9 72 16 108/58 98 Nasal 1.0L Cannula 03/29 2054 74 108/58 03/29 2053 74 108/58 Intake & Output 03/30 1600 03/30 0803/30 0000 03/29 1600 03/29 0800 03/29 0000 Intake Total 360 160 182.4 141.2 Output Total 400 200 200 450 240 350 Balance -40 -40 -200 -450 -57.6 -208.8 Intake, IV 200 160 182.4 91.2 Intake, Oral 160 50 Number 1 Bowel Movements Output, Urine 400 200 200 450 240 350 Patient 165 lb 168 lb 168 lb Weight Physical Exam: General: WD/WN female in NAD; awake and responsive HEENT: NC/AT, PERRL, EOMI Neck: no JVD, no carotid bruit Heart: RRR with ectopy Lungs: clear bilaterally ABdomen: firm, NT, +ve bowel sounds Extremities: 1+ bilateral leg edema with erythema Assessment/Plan Assessment/Plan * This patient has had multiple ECG's that showed an irregular rhythm with very small P waves. She is in a sinus rhythm at this time. We will continue to monitor on telemetry. * This patient also had bilateral leg edema and pulmonary edema in the setting of mild renal insufficiency which is improving. An echocardiogram showed a low EF. Pulmonary edema persists. Continue Lasix 60mg IV BID and hold only for systolic BP less than 90mmHg. Continue to monitor her BUN, creatinine and potassium. Continue Metoprolol, aspirin and a statin as previously prescribed. Begin digoxin at 0.125mg daily and continue dobutamine for another day. * Would check a 24 hour urine for protein and creatinine. Check a lipid profile. Consider nephrotic syndrome. Ask nephrology to reassess patient. Would begin epogen for anemia. Continue telemetry? Yes
[2018-03-30 20:26] VITALS: BP 108/52
[2018-03-31 06:55] VITALS: BP 102/52
--- NOTE | 2018-03-31 07:17 | PN- Housestaff ---
[facility]16[facility] Subjective Follow-up For: VICTORIA on CKD Hypoglycemia Atrial arrhythmia CHF Hyperkalemia Complaints: no complaints Subjective: Patient seen and examined, lying in the bed comfortable with no acute distress. She mentioned her breathing is the same. She has cough at baseline with yellow phlegm. No events overnight, her vitals stable Review of Systems Constitutional: Reports: no symptoms. EENTM: Reports: no symptoms. Cardiovascular: Reports: no symptoms. Respiratory: Reports: cough, short of breath, sputum production. Gastrointestinal: Reports: no symptoms. Genitourinary: Reports: no symptoms. Musculoskeletal: Reports: no symptoms. Skin: Reports: no symptoms. Neurological/Psychological: Reports: no symptoms. Objective Last 24 Hrs of Vital Signs/I&O Vital Signs Date Time Temp Pulse Resp B/P B/P Pulse O2 O2 Flow FiO2 Mean Ox Delivery Rate 03/31 0655 97.8 71 24 102/52 99 Nasal 1.0L Cannula 03/30 2050 Nasal 1.0L Cannula 03/30 2033 76 108/52 03/30 203 76 108/52 03/30 2026 97.5 78 18 108/52 97 Nasal 1.0L Cannula 03/30 1357 97.9 74 20 90/50 99 Nasal 1.0L Cannula 03/30 1003 76 126/64 03/30 0828 116/60 03/30 0800 Nasal 1.0L Cannula Intake & Output 03/31 0800 03/31 0000 03/30 1600 Intake Total 160 360 Output Total 200 300 400 Balance -40 -300 -40 Intake, IV 160 200 Intake, Oral 160 Output, Urine 200 300 400 Patient 193 lb 163 lb Weight Weight Bed scale Measurement Method Physical Exam General Appearance: Alert, Oriented X3, Cooperative, No Acute Distress Skin: No Rashes, No Breakdown, No Significant Lesion HEENT: Atraumatic, PERRLA, EOMI, Mucous Membr. moist/pink Neck: Supple, No JVD Lymphatic: Axillary nl, Cervical nl Cardiovascular: Regular Rate, Normal S1, Normal S2, No Murmurs Lungs: Normal Air Movement, bibasiler crackles Abdomen: Normal Bowel Sounds, Soft, No Tenderness Neurological: Normal Speech, Sensation Intact Extremities: No Edema, Normal Pulses Vascular: Normal Pulses, Pulses Symmetrical Current Medications: Current Medications Sig/Jaylon Start time Last Medication Dose Route Stop Time Status Admin Acetaminophen 650 MG Q6P PRN 03/24 1415 AC PO Aspirin 81 MG DAILY 03/24 1555 AC 03/30 PO 0959 Atorvastatin Calcium 80 MG 1700 03/24 1700 AC 03/30 PO 1712 Benzonatate 100 MG TID 03/24 1509 AC 03/27 PO 1335 Cholecalciferol 1,000 IU DAILY 03/25 0900 AC 03/30 PO 1001 Digoxin 0.125 MG 1700 03/31 1700 AC PO Dobutamine HCl 250 MG Q10H 03/27 0930 AC 03/30 Dextrose/Water 250 ML IV 2031 Docusate Sodium 100 MG BID 03/24 2100 AC 03/29 PO 2055 Furosemide 40 MG DAILY 03/26 1941 AC 03/30 IV 0957 Guaifenesin 10 ML Q6P PRN 03/24 1715 AC PO Heparin Sodium 5,000 UNIT Q8 03/24 1421 AC 03/29 (Porcine) SC 1456 Metoprolol Tartrate 12.5 MG BID 03/24 2100 AC 03/30 PO 2033 Omeprazole 40 MG BID 03/24 2100 AC 03/30 PO 1000 Patient Medication 1 ED ONE ONE 03/30 1830 DC Teaching ED 03/30 1831 Polyethylene Glycol 17 GM DAILY 03/26 1048 AC 03/26 PO 1351 Senna/Docusate Sodium 2 TAB DAILY 03/26 1048 AC 03/30 PO 1000 Last 24 Hrs of Lab/Ambrose Results Last 24 Hrs of Labs/Mics: Laboratory Tests 03/31/18 0725: Triglycerides Pending, Cholesterol Pending, LDL Cholesterol, Calc Pending, HDL Cholesterol Pending, Cholesterol/HDL Ratio Pending Assessment/Plan Assessment: 83 year old female BIBA from assisted for change in mental status with severe hypoglycemia. Patient has been refusing most of her oral meds, she has mostly been recieving only her IV meds. #VICTORIA on CKD -Gradually improving -Will repeat BEP tomorrow to assess kidney function -Continue low dose dobutamine drip to increase renal perfusion -Renal US; Right kidney atrophic without gross hydronephrosis. Left kidney not visualized due to limited view -Will continue to monitor #Decompensated systolic CHF with anasarca -Anasarca improved -ECHO shows a 30% EF with normal diastolic fuction -On Dobutamine drip to improve inotropy, will continue that today as her CXR showed progression from previous study -Continue lasix 40mg daily -Cont Carmona, check daily weights -Trend renal function -CXR @ 03/30/2018: Findings are consistent with congestive heart failure with trace right-sided pleural effusion. Allowing for differences in technique, findings may have progressed slightly compared to the previous study. -Will f/u extra gang supervisor recommendations #Acute on Chronic normocytic anemia -Will order CBC at am -Likely due to CKD -No obvious bleeding from any site -Will monitor #Diabetes mellitus with hypoglycemia-Resolved -Levemir discontinued -Blood sugars stable, yesterday at night 106, today at am 112 mg/dl -Poor PO intake overall -Endocrinology following -Accuchecks TIDAC/HS -HbA1c 5.9 #Hyperkalemia -Resolved #Atrial arrythmias -Cardiology following -ECHO LVEF 30%. -ACS ruled out #CAD -Continue metoprolol 12.5mg BID and crestor 20mg daily. #Poor oral intake -Will get a nutrition consult #Small venous stasis ulcer on back of rt lower leg -Keep area elevated as much as possible -Daily wound dressing -OOB to chair -DC planning once cleared cardiology and Nephrology PO PPI Diabetic Diet DVT ppx-heparin subc DNR/DNI Problem List: 1. Chronic kidney disease (CKD) 2. Acute renal failure 3. Anasarca Pain Ratin Pain Location: - Pain Goal: Remain pain free Pain Plan: - Tomorrow's Labs & Rationales: cbc, bep DVT/Prophylaxis: mechanical, pharmacological BabatundeNamita gibson 03/31/18 1054: Attending MD Review Statement Attending Statement Attending MD Statement: examined this patient, discuss w/resident/PA/TWISTER TENDER, agreed w/resident/PA/TWISTER TENDER, discussed with family, reviewed EMR data (avail), discussed with nursing, discussed with case mgmt, reviewed images, amended to note Attending Assessment/Plan: Patient deneis any new complaints. Patient non coperative PO meds. Encourage PO intake. Vital stable. VICTORIA on CKD: Cr 2.5. stabilising. (likely cardiorenal syndrome) F/u chest xray showed pulmonary edema and follow up cardiology. Patient continued on dobutamine drip and iv lasix with not much improvement in pulmonary edema. Insulin stopped 2/2 hypoglycemia. Endo appreciated, no further tight control. Family updated and wishes conservative measures for now. DNR/DNI. Faye MCCAULEY,Mark 03/31/18 1900: Assessment/Plan Assessment: Discussed with Dr. Lizama, previous note recs 60mg lasix iv bid. Currently on 40mg IV daily will give additional 40mg iv x 1 now that SBP > 100mmHg and digoxin was started based on his recommendations. 24 hour urine protein study ordered for possible nephrotic syndrome. He requests nephrology consultation, renal ultrasound previously performed single atrophic kidney other kidney not visualized.
[2018-03-31 14:11] VITALS: BP 90/50
[2018-03-31 17:35] VITALS: BP 102/68
--- NOTE | 2018-03-31 19:07 | PN- Cardiology ---
Subjective Subjective: * No complaints. * sinus rhythm * creatinine 2.5 yesterday * low H/H Objective Vital Signs and I&Os Vital Signs Date Time Temp Pulse Resp B/P B/P Pulse O2 O2 Flow FiO2 Mean Ox Delivery Rate 03/31 1735 102/68 03/31 1448 98/66 03/31 1411 97.6 73 22 90/50 94 Nasal 1.0L Cannula 03/31 1015 102/52 03/31 0800 94 Nasal 1.0L Cannula 03/31 0655 97.8 71 24 102/52 99 Nasal 1.0L Cannula 03/30 2050 Nasal 1.0L Cannula 03/30 2033 76 108/52 03/30 2031 76 108/52 03/30 2026 97.5 78 18 10852 97 Nasal 1.0L Cannula Intake & Output 03/31 1600 03/31 0800 03/31 0000 03/30 1600 03/30 0800 03/30 0000 Intake Total 782.4 160 360 160 Output Total 250 200 300 400 200 200 Balance 532.4 -40 -300 -40 -40 -200 Intake, IV 182.4 160 200 160 Intake, Oral 600 160 Output, Urine 250 200 300 400 200 200 Patient 193 lb 163 lb 165 lb Weight Weight Bed scale Measurement Method Physical Exam: General: WD/WN female in NAD; awake and responsive HEENT: NC/AT, PERRL, EOMI Neck: no JVD, no carotid bruit Heart: RRR with ectopy Lungs: clear bilaterally ABdomen: firm, NT, +ve bowel sounds Extremities: 1+ bilateral leg edema with erythema Assessment/Plan Assessment/Plan * This patient has had multiple ECG's that showed an irregular rhythm with very small P waves. She is in a sinus rhythm at this time. We will continue to monitor on telemetry. * This patient also had bilateral leg edema and pulmonary edema in the setting of mild renal insufficiency which is improving. An echocardiogram showed a low EF. Pulmonary edema persists. Continue Lasix 60mg IV BID and hold only for systolic BP less than 90mmHg. Continue to monitor her BUN, creatinine and potassium. Continue Metoprolol, aspirin and a statin as previously prescribed. Continue digoxin at 0.125mg daily and continue dobutamine. * Would check a 24 hour urine for protein and creatinine. Check a lipid profile. Consider nephrotic syndrome. Ask nephrology to reassess patient. Would begin epogen for anemia. Continue telemetry? Yes
[2018-03-31 22:08] VITALS: BP 116/68
[2018-04-01 06:50] VITALS: BP 112/58
--- NOTE | 2018-04-01 07:46 | PN- Housestaff ---
Markus MCCAULEY,Elba 04/01/18 0746: Subjective Follow-up For: VICTORIA on CKD Hypoglycemia Atrial arrhythmia CHF Hyperkalemia Complaints: no complaints Subjective: Laying in bed, Awake and alert, pleasant. Denies any symptoms. Says she feels well. Review of Systems Constitutional: Reports: no symptoms. Objective Last 24 Hrs of Vital Signs/I&O Vital Signs Date Time Temp Pulse Resp B/P B/P Pulse O2 O2 Flow FiO2 Mean Ox Delivery Rate 04/01 0650 97.8 78 22 112/58 98 04/01 0000 98 Nasal 1.0L Cannula 03/31 2208 97.7 75 22 116/68 98 Nasal Cannula 03/31 2007 83 118/62 03/31 1911 79 118/62 03/31 1735 102/68 03/31 1448 98/66 03/31 1411 97.6 73 22 90/50 94 Nasal 1.0L Cannula 03/31 1015 102/52 03/31 0800 94 Nasal 1.0L Cannula Intake & Output 04/01 0800 04/01 0000 03/31 1600 Intake Total 232.4 209.6 782.4 Output Total 450 250 Balance -217.6 209.6 532.4 Intake, IV 182.4 59.6 182.4 Intake, Oral 50 150 600 Output, Urine 450 250 Patient 165 lb Weight Weight Bed scale Measurement Method Physical Exam General Appearance: Alert, Oriented X3, Cooperative, No Acute Distress Skin: bandage over skin tesr on Rt lower leg, CDI HEENT: Mucous Membr. moist/pink Cardiovascular: Regular Rate, Normal S1, Normal S2 Lungs: bibasilar crackles Abdomen: No Tenderness, firm Extremities: trace pedal edema in bilateral LE, 1+ edema in bilateral uppper extremities Current Medications: Current Medications Sig/Jaylon Start time Last Medication Dose Route Stop Time Status Admin Acetaminophen 650 MG Q6P PRN 03/24 1415 AC PO Aspirin 81 MG DAILY 03/24 1555 AC 03/30 PO 0959 Atorvastatin Calcium 80 MG 03/24 1700 AC 03/30 PO 1712 Benzonatate 100 MG TID 03/24 1509 AC 03/31 PO 1448 Cholecalciferol 1,000 IU DAILY 03/25 0900 AC 03/30 PO 1001 Digoxin 0.125 MG 03/31 1700 AC PO Dobutamine HCl 250 MG Q10H 03/27 0930 AC 03/31 Dextrose/Water 250 ML IV 191 Docusate Sodium 100 MG BID 03/24 2100 AC 03/29 PO 205 Furosemide 60 MG BID 04/01 09 AC IV Furosemide 40 MG ONCE ONE 03/31 183 DC 03/31 IV 03/31 [id number] Furosemide 40 MG DAILY 03/26 194 DC 03/31 IV 1015 Guaifenesin 10 ML Q6P PRN 03/24 1715 AC PO Heparin Sodium 5,000 UNIT Q8 03/24 1421 AC 03/29 (Porcine) SC 1456 Metoprolol Tartrate 12.5 MG BID 03/24 2100 AC 03/30 PO 203 Omeprazole 40 MG BID 03/24 2100 AC 03/30 PO 1000 Polyethylene Glycol 17 GM DAILY 03/26 1048 AC 03/26 PO 1351 Senna/Docusate Sodium 2 TAB DAILY 03/26 1048 AC 03/30 PO 1000 Last 24 Hrs of Lab/Ambrose Results Last 24 Hrs of Labs/Mics: Laboratory Tests 04/01/18 0615: Sodium Pending, Potassium Pending, Chloride Pending, Carbon Dioxide Pending, Anion Gap Pending, BUN Pending, Creatinine Pending, BUN/Creatinine Ratio Pending , CBC w Diff Pending, WBC Pending, RBC Pending, Hgb Pending, Hct Pending, MCV Pending, MCH Pending, MCHC Pending, RDW Pending, Plt Count Pending, MPV Pending 04/01/18 0600: Ur Random Creatinine Pending, Urine Total Volume Pending, Urine Creatinine Pending, Ur Total Protein 24 Hr Pending 03/31/18 1000: Urine Total Volume Cancelled, Ur Total Protein 24 Hr Cancelled Lines/Diet/Fluids Lines: peripheral lines Assessment/Plan Assessment: 83 year old female BIBA from retirement for change in mental status with severe hypoglycemia. Patient has been refusing most of her oral meds, she has mostly been recieving only her IV meds. #VICTORIA on CKD -Gradually improving, AM labs today pending -Will repeat BEP tomorrow to assess kidney function -Continue low dose dobutamine drip to increase renal perfusion -Renal US; Right kidney atrophic without gross hydronephrosis. Left kidney not visualized due to limited view -Will continue to monitor -Nephrology consulted again today, will follow recs #Decompensated systolic CHF with anasarca -Anasarca improved -ECHO shows a 30% EF with normal diastolic fuction -On Dobutamine drip to improve inotropy, will continue that today as her CXR showed progression from previous study -DIgoxin was started yesterday 0.125mg daily, will continue -Lasix 60mg BID, hold for systolic BP <90mmg/hg per Cardio. She had an episode of low BP yesterday 90/50 which has since improved, so close monitoring of BP is essential -Cont Carmona, check daily weights -Trend renal function -CXR @ 03/30/2018: Findings are consistent with congestive heart failure with trace right-sided pleural effusion. Allowing for differences in technique, findings may have progressed slightly compared to the previous study -Cont metoprolol, aspirin and statin -Will f/u life insurance underwriter recommendations #Acute on Chronic normocytic anemia -H&H dropping -Likely due to CKD; will kenzie need epogen -Nephrology eval requested -Will monitor #Diabetes mellitus with hypoglycemia-Resolved -Levemir discontinued -Blood sugars stable, -Poor PO intake overall -Endocrinology following -Accuchecks TIDAC/HS -HbA1c 5.9 #Hyperkalemia -Resolved #Atrial arrythmias -Cardiology following -ECHO LVEF 30%. -ACS ruled out #CAD -Continue metoprolol 12.5mg BID and crestor 20mg daily. #Poor oral intake -On ensure pudding to augment intake -Will monitor #Small venous stasis ulcer on back of rt lower leg -Keep area elevated as much as possible -Daily wound dressing -OOB to chair -Patient has been refusing her oral meds on multiple occassions. I had a conversation with her again today on the importance of taking her medications as prescribed and she expresses her undertanding and has agreed to take them. PO PPI Diabetic Diet DVT ppx-heparin subc DNR/DNI Problem List: 1. Acute renal failure 2. Chronic kidney disease (CKD) 3. Anasarca 4. Dysrhythmia Pain Ratin Pain Location: na Pain Goal: Remain pain free Pain Plan: na Tomorrow's Labs & Rationales: cbc,bep BabatundeFelipedianna 04/01/18 1041: Attending MD Review Statement Attending Statement Attending MD Statement: examined this patient, discuss w/resident/PA/DESIGN DIRECTOR, agreed w/resident/PA/DESIGN DIRECTOR, discussed with family, reviewed EMR data (avail), discussed with nursing, discussed with case mgmt, reviewed images, amended to note Attending Assessment/Plan: Patient seen/examined bedside. Patient is non copeartive with PO intake. refuses PO meds. BP borderline. Afebrile. Cr 2.3 with improvement. Obtain repeat chest xray. VICTORIA on CKD with congestive heart failure systolic: Patient on increased lasix 60 mg iv bid. She is also on dobutamine drip and added digoxin. Continue metroprolol, asa, statin. anemia of chronic disease erythropoeitin give 1 dose now. Insulin stopped 2/2 hypoglycemia. Endo appreciated, no further tight control. Family updated and wishes conservative measures for now. DNR/DNI
[2018-04-01 08:01] LABS: ABSOLUTE BASOPHIL COUNT 0 /CUMM (0.0-0.2); ABSOLUTE EOSINOPHIL COUNT 0.1 /CUMM (0.0-0.7); ABSOLUTE GRANULOCYTE CT 4.9 /CUMM (1.4-6.5); ABSOLUTE LYMPH COUNT 0.4 /CUMM (1.2-3.4); ABSOLUTE MONOCYTE COUNT 0.6 /CUMM (0.10-0.60); BASOPHIL % 0.3 % (0.0-2.0); EOSINOPHIL % 1.6 % (0-5); GRANULOCYTE % 82.5 % (42.2-75.2); HEMATOCRIT 25.8 % (37-47); MEAN CORPUSCULAR HGB 29.9 PG (27.0-31.0); MEAN CORPUSCULAR HGB CONC 32.5 G/DL (33.0-37.0); MEAN CORPUSCULAR VOLUME 91.9 FL (81.0-99.0); PLATELET COUNT 129 /CUMM (130-400); RBC DISTRIBUTION WIDTH 17.8 % (11.5-14.5); WHITE BLOOD CELL COUNT 5.9 /CUMM (4.8-10.8)
--- NOTE | 2018-04-01 09:22 | PN- Cardiology ---
Subjective Subjective: * No complaints. * sinus rhythm * creatinine improved to 2.3 * low H/H Objective Vital Signs and I&Os Vital Signs Date Time Temp Pulse Resp B/P B/P Pulse O2 O2 Flow FiO2 Mean Ox Delivery Rate 04/01 0810 84 110/60 04/01 0759 80 110/60 04/01 0650 97.8 78 22 112/58 98 05/ 0000 98 Nasal 1.0L Cannula 03/31 2208 97.7 75 22 116/68 98 Nasal Cannula 03/31 2007 83 118/62 03/31 1911 79 118/62 03/31 1735 102/68 03/31 1448 98/66 03/31 1411 97.6 73 22 90/50 94 Nasal 1.0L Cannula 03/31 1015 102/52 Intake & Output 04/01 1600 04/01 0800 04/01 0000 03/31 1600 03/31 0800 03/31 0000 Intake Total 232.4 209.6 782.4 160 Output Total 450 250 200 300 Balance -217.6 209.6 532.4 -40 -300 Intake, IV 182.4 59.6 182.4 160 Intake, Oral 50 150 600 Output, Urine 450 250 200 300 Patient 165 lb 193 lb 163 lb Weight Weight Bed scale Bed scale Measurement Method Physical Exam: General: WD/WN female in NAD; awake and responsive HEENT: NC/AT, PERRL, EOMI Neck: no JVD, no carotid bruit Heart: RRR Lungs: crackles bilaterally ABdomen: firm, NT, +ve bowel sounds Extremities: 1+ bilateral leg edema with 2+ bilateral edema in arms Assessment/Plan Assessment/Plan * This patient has had multiple ECG's that showed an irregular rhythm with very small P waves. She is in a sinus rhythm at this time. We will continue to monitor on telemetry. * This patient also had bilateral leg edema and pulmonary edema in the setting of mild renal insufficiency which is improving. Bilateral edema is noted in her arms. An echocardiogram showed a low EF. Pulmonary edema persists. Continue Lasix 60mg IV BID and hold only for systolic BP less than 90mmHg. Continue to monitor her BUN, creatinine and potassium. Continue Metoprolol, aspirin and a statin as previously prescribed. Continue digoxin at 0.125mg daily and continue dobutamine today. * A 24 hour urine for protein and creatinine is pending. Consider nephrotic syndrome. Ask nephrology to reassess patient. Agree with erythropoietin for anemia. Continue telemetry? Yes
--- NOTE | 2018-04-01 14:18 | PN- Nephrology ---
Assessment/Plan Nephrology Assessment: Renal failure in 83 yo with CHF on IV lasix and IV dobutamine. Cr stable ( better) with this regimen and patient refusing all oral medications. Unclear how she will be able to be managed off IV medications if she refuses oral medications. 24 hr urine recommended by Dr. Lizama does not show significant proteinuria ( this is not from nephrotic syndrome). Cardiac ECHO is consistent with CHF with the addition of moderate pulm HTN (will give right sided findings (edema/ effusion etc)). Continue IV lasix/dobutamine. need to try to get patient to take po. Please refrain from calling in stat consults for non-emergent situations. Carlitos Mathews MD Suggestion: . Subjective Subjective: Asked to resee Ms. Mai emergently for ? drop in Cr from 2.7 to 2.3. As in multiple notes from medicine and cardiology pt on dobutamine and IV lasix for CHF and patient refusing oral medications. Nursing tells me she is also refusing to eat Objective Vital Signs and I&Os Elderly F comfortable in bed 110/60 84 97.8 Lungs clear diminished bases Cor RRR 2+sacral edema 1+LE edema Results Pertinent Lab Results: 134 / 98 / 54 / 4.0 / 26 / 2.3\ 24 hr urine 400 mg creatinine 136 mg total protein Date March 24March 1 2 3 Cr 2.2 2.4 2.8 2.7 2.7 2.6 2.6 2.5 2.3 Cardiac ECHO 03/24 EF 30% mod MR, mod TR pulm HTN (48) mild AR
--- NOTE | 2018-04-01 14:28 | RADIOLOGY REPORT ---
EXAMINATION: XR PORTABLE CHEST CLINICAL INFORMATION: Pulmonary edema. For follow up. COMPARISON: Chest done on 03/30/2018. TECHNIQUE: Portable frontal view of the chest was obtained. FINDINGS: Bilateral diffuse ground-glass opacities are noted throughout the entire right lung and left mid to lower lung zarate, shows interval progression since 03/30/2018, may represent progressive pulmonary edema versus infection or combination thereof. The cardiomediastinal silhouette is moderately enlarged, unchanged. Postop changes of sternotomy and CABG is noted. There is no pleural effusion present. Visualized upper abdomen is unremarkable. IMPRESSION: Interval progression of bilateral nonspecific airspace disease, may represent pulmonary edema versus infection or combination thereof.
[2018-04-01 14:49] VITALS: BP 128/60
--- NOTE | 2018-04-01 16:49 | Event Note ---
Event Note Event Note: I spoke with patient's son Carlitos this afternoon about patient's refusal of her oral medications and food and we also had an extensive discussion of anticipated goals of care. He feels the patient will continue to refuse food and medications since she does not want to be in hospital any longer. He thinks if the patient is stable medically he would prefer that we discontinue the Dobutamin drip and switch her to oral lasix and he can take her back to the SNF by tomorrow afternoon as she might be more cooperative when she gets there. He also would like her to be discharged on only essential medications so it would be easier to have her take them. He and his brother will try to make sure she takes her meds at the facility since his brother works there and he works close by. He understands that her current renal function may be her new baseline and if her conditions worsens again, they will decide at the time whether or not to re-hospitalize her.
[2018-04-01 21:58] VITALS: BP 120/56
[2018-04-02 06:55] VITALS: BP 108/54
--- NOTE | 2018-04-02 08:04 | PN- Housestaff ---
Markus MCCAULEY,Yas 04/02/18 0803: Subjective Follow-up For: VICTORIA on CKD Atrial arrhythmia Decompensated CHF Complaints: no complaints Tele-Events Since Last Visit: triplets, PVCs, bigeminy, 1st degree AVB, NSR, 80s-90s Subjective: Patient seen and examined. AAOx3, wants to be left alone and wants to go home, says she is tired of being in the hospital. Continues to refuse most of her oral meds. Got out of bed to chair yesterday with the nurses. Review of Systems Constitutional: Reports: no symptoms. Objective Last 24 Hrs of Vital Signs/I&O Vital Signs Date Time Temp Pulse Resp B/P B/P Pulse O2 O2 Flow FiO2 Mean Ox Delivery Rate 04/02 0655 97.5 85 20 108/54 95 Nasal 2.0L Cannula 04/02 0000 99 Nasal 1.0L Cannula 04/01 2158 97.9 88 21 120/56 99 Nasal Cannula 04/01 2123 87 108/60 04/01 1847 88 112/50 04/01 1847 90 112/60 04/01 1600 Nasal 1.0L Cannula 04/01 1449 97.6 87 20 128/60 97 Nasal 1.0L Cannula Intake & Output 04/02 1600 04/02 0800 04/02 0000 Intake Total 182.4 450 Output Total 150 250 Balance 32.4 200 Intake, IV 182.4 200 Intake, Oral 250 Number 0 Bowel Movements Output, Urine 150 250 Patient 162 lb Weight Physical Exam General Appearance: Alert, Oriented X3, Cooperative, No Acute Distress Skin: skin tear on the back of the ankle is healing HEENT: Mucous Membr. moist/pink Cardiovascular: Normal S1, Normal S2, regular HR with extra beats Lungs: scattered crackles anteriorly Abdomen: Soft, No Tenderness Extremities: trace pedal edema on biateral LE, 1+ edema on bilateral UE Current Medications: Current Medications Sig/Jaylon Start time Last Medication Dose Route Stop Time Status Admin Acetaminophen 650 MG Q6P PRN 03/24 1415 AC PO Aspirin 81 MG DAILY 03/24 1555 AC 04/01 PO 0759 Atorvastatin Calcium 80 MG 1700 03/24 1700 AC 03/30 PO 1712 Benzonatate 100 MG TID 03/24 1509 AC 03/31 PO 1448 Cholecalciferol 1,000 IU DAILY 03/25 0900 AC 03/30 PO 1001 Digoxin 0.125 MG 1700 03/31 1700 AC 04/01 PO 1847 Dobutamine HCl 250 MG Q10H 03/27 0930 AC 04/02 Dextrose/Water 250 ML IV 06 Docusate Sodium 100 MG BID 03/24 2100 AC 03/29 PO 205 Epoetin Yair 4,000 UNIT ONCE ONE 04/01 09 DC 04/01 IV 04/01 0901 1119 Ferrous Sulfate 325 MG TID 04/01 09 AC 04/01 PO 111 Furosemide 60 MG BID 04/01 0900 AC 04/01 IV 211 Guaifenesin 10 ML Q6P PRN 03/24 1715 AC PO Heparin Sodium 5,000 UNIT Q8 03/24 1421 AC 04/01 (Porcine) SC 211 Metoprolol Tartrate 12.5 MG BID 03/24 2100 AC 03/30 PO 203 Nystatin 1 MERE TID 04/01 1553 AC 04/01 TOP 2125 Omeprazole 40 MG BID 03/24 2100 AC 03/30 PO 1000 Polyethylene Glycol 17 GM DAILY 03/26 1048 AC 03/26 PO 1351 Senna/Docusate Sodium 2 TAB DAILY 03/26 1048 AC 03/30 PO 1000 Last 24 Hrs of Lab/Ambrose Results Last 24 Hrs of Labs/Mics: Laboratory Tests 04/02/18 0803: Sodium Pending, Potassium Pending, Chloride Pending, Carbon Dioxide Pending, Anion Gap Pending, BUN Pending, Creatinine Pending, BUN/Creatinine Ratio Pending , CBC w Diff Pending, WBC Pending, RBC Pending, Hgb Pending, Hct Pending, MCV Pending, MCH Pending, MCHC Pending, RDW Pending, Plt Count Pending, MPV Pending Lines/Diet/Fluids Lines: peripheral lines Assessment/Plan Assessment: 83 year old female BIBA from long-term for change in mental status with severe hypoglycemia. Patient has been refusing most of her oral meds, she has mostly been recieving only her IV meds. #VICTORIA on CKD -AM labs today pending -Plan is to stop low dose dobutamine drip today after discussion with cardio based on family request -Renal US; Right kidney atrophic without gross hydronephrosis. Left kidney not visualized due to limited view -Will continue to monitor -Nephrology have not made any new recommendations #Decompensated systolic CHF with anasarca -Anasarca improved -Repeat CXR yesterday showed interval progression of bilateral nonspecific airspace disease, may represent pulmonary edema versus infection or combination thereof. Patient has no obvioous clinical signs of an infection, so this is likely all due to her pulm edema; will await AM labs. -ECHO shows a 30% EF with normal diastolic fuction -Plan would be to stop low dose dobutamine drip after discussion with cardio based on family request -Continue Digoxin -Lasix 60mg BID, hold for systolic BP <90mmg/hg per Cardio; plan is to cghange to PO lasix today -Cont Carmona for now, check daily weights -Trend renal function -Cont metoprolol, aspirin and statin -Will f/u blow pit helper recommendations #Acute on Chronic normocytic anemia -She recieved a dose of Epogen 4000units x1 yesterday -Nephrology was consulted for this but they did not make any new recommendations -Will monitor #Diabetes mellitus with hypoglycemia-Resolved -Now on only dietary control -Levemir discontinued -Blood sugars stable, have remained under 200 -Poor PO intake overall -Accuchecks TIDAC/HS -HbA1c 5.9 #Hyperkalemia -Resolved #Atrial arrythmias -Cardiology following -ECHO LVEF 30%. -ACS ruled out #CAD -Continue metoprolol 12.5mg BID and crestor 20mg daily. #Poor oral intake -On ensure pudding to augment intake -Will monitor #Small venous stasis ulcer on back of rt lower leg -Healing -Keep area elevated as much as possible -Daily wound dressing FYII spoke to her son Carlitos yesterday and he feels the patient will continue to refuse food and medications since she does not want to be in hospital any longer. He thinks if the patient is stable medically he would prefer that we discontinue the Dobutamin drip and switch her to oral lasix and he can take her back to the SNF this afternoon as she might be more cooperative when she gets there. He also would like her to be discharged on only essential medications so it would be easier to have her take them. -OOB to chair Problem List: 1. Acute renal failure 2. Chronic kidney disease (CKD) 3. Anasarca 4. Dysrhythmia Pain Ratin Pain Location: na Pain Goal: Remain pain free Pain Plan: current mgt Tomorrow's Labs & Rationales: cbc,BEP BabatundeFelipedianna 04/02/18 1037: Attending MD Review Statement Attending Statement Attending MD Statement: examined this patient, discuss w/resident/PA/WIRING MECHANIC, agreed w/resident/PA/WIRING MECHANIC, discussed with family, reviewed EMR data (avail), discussed with nursing, discussed with case mgmt, reviewed images, amended to note Attending Assessment/Plan: Patient still non coperative with interview. She says "I want to go back to facility" Patient denies any new complaints. Had length conversation with family about goals of care. Patient extremity edema has improved with improvement in her creatinine function. Patient remians on 1l of oxygen supplementation with no use of accesssory muscles. Patient hemodynamics remains stable. Will give trial of taper dobutamine drip today and Po lasix and monitor hemodynamics. Patient wants to go her terminal operations manager facility. DNR/DNI.
[2018-04-02 08:27] LABS: ABSOLUTE BASOPHIL COUNT 0 /CUMM (0.0-0.2); ABSOLUTE EOSINOPHIL COUNT 0.1 /CUMM (0.0-0.7); ABSOLUTE GRANULOCYTE CT 4.5 /CUMM (1.4-6.5); ABSOLUTE LYMPH COUNT 0.4 /CUMM (1.2-3.4); ABSOLUTE MONOCYTE COUNT 0.5 /CUMM (0.10-0.60); BASOPHIL % 0.2 % (0.0-2.0); EOSINOPHIL % 1.8 % (0-5); GRANULOCYTE % 82.7 % (42.2-75.2); HEMATOCRIT 26.1 % (37-47); MEAN CORPUSCULAR HGB 29.9 PG (27.0-31.0); MEAN CORPUSCULAR HGB CONC 32.5 G/DL (33.0-37.0); MEAN CORPUSCULAR VOLUME 92.1 FL (81.0-99.0); MEAN PLATELET VOLUME 6.8 FL (7.4-10.4); PLATELET COUNT 136 /CUMM (130-400); RBC DISTRIBUTION WIDTH 18.6 % (11.5-14.5); RED BLOOD CELL CT 2.84 /CUMM (4.20-5.40); WHITE BLOOD CELL COUNT 5.4 /CUMM (4.8-10.8)
[2018-04-02] MEDS ORDERED: NYSTATIN15 G1 TOP (10:16)
[2018-04-02] MEDS ORDERED: FERROUS SULFAT325 M2 PO (10:16)
[2018-04-02] MEDS ORDERED: LASIX20 M1 PO (10:16)
[2018-04-02] MEDS ORDERED: LANOXIN125 MCG PO ×2 (10:16→13:42)
[2018-04-02] MEDS ORDERED: MIRALAX119 GM PO (10:16)
[2018-04-02] MEDS ORDERED: VITAMIN D31000 UNI2 PO (10:16)
[2018-04-02] MEDS ORDERED: SENNA PLUS TAB1 EACH PO (10:16)
[2018-04-02 10:42] VITALS: BP 110/62
--- NOTE | 2018-04-02 14:38 | PN- Cardiology ---
Subjective Subjective: * No complaints. * patient reportedly has been refusing some medications * creatinine improved to 2.2 Objective Vital Signs and I&Os Vital Signs Date Time Temp Pulse Resp B/P B/P Pulse O2 O2 Flow FiO2 Mean Ox Delivery Rate 04/02 1042 86 110/62 / 1006 Nasal 1.0L Cannula 04/02 0902 108/54 05/ 0800 92 Nasal 1.0L Cannula 04/02 0655 97.5 85 20 108/54 95 Nasal 2.0L Cannula 04/02 0000 99 Nasal 1.0L Cannula 04/01 2158 97.9 88 21 120/56 99 Nasal Cannula 04/01 2123 87 108/60 04/01 1847 88 112/50 05/03 1847 90 112/60 04/01 1600 Nasal 1.0L Cannula 04/01 1449 97.6 87 20 128/60 97 Nasal 1.0L Cannula Intake & Output 04/02 1600 / 0800 05/04 0000 / 1600 04/01 0800 05 0000 Intake Total 182.4 450 400 232.4 209.6 Output Total 150 250 300 450 Balance 32.4 200 100 -217.6 209.6 Intake, IV 182.4 200 200 182.4 59.6 Intake, Oral 250 200 50 150 Number 0 Bowel Movements Output, Urine 150 250 300 450 Patient 162 lb 165 lb Weight Weight Bed scale Measurement Method Physical Exam: General: WD/WN female in NAD; awake and responsive HEENT: NC/AT, PERRL, EOMI Neck: no JVD, no carotid bruit Heart: RRR with ectopy Lungs: crackles bilaterally ABdomen: firm, NT, +ve bowel sounds Extremities: 1+ bilateral leg edema with 2+ bilateral edema in arms Assessment/Plan Assessment/Plan * This patient has had multiple ECG's that showed an irregular rhythm with very small P waves. She is in a sinus rhythm at this time. Martha appears disinterested in her healthcare and has refused some medications. There is likely an element of failure to thrive. She is certainly improved compared to admission but is not likely to remain this way in the absence of taking her oral medications. Would continue Lasix 60mg BID and hold only for a systolic pressure of less than 90mmHg. Continue digoxin 0.125mg every other day. Continue Metoprolol, aspirin and a statin. Ideally, I would like to see that she improves of IV dobutamine and on oral medications if she is willing to take them but, if the family and patient are not enthusiastic about continued diagnosis and treatment and understand the potention consequences, then it is reasonable to stop telemetry and return this patient to her nursing facility. Continue telemetry? No
[2018-04-02 14:51] VITALS: BP 128/72
[2018-04-02 22:20] VITALS: BP 122/62
--- NOTE | 2018-04-03 03:48 | PN- Housestaff ---
See Addendum Subjective Follow-up For: VICTORIA on CKD Atrial arrhythmia Decompensated CHF Complaints: no complaints Tele-Events Since Last Visit: SR 69-75. Had a 3 beat vtach at 4.07am this morning Subjective: Patient seen and examined. AAOx3. Was supposed to be discharged yesterday but had to stay due to insurance denial of STR. Will likely be discharged today if her insurance goes through. Review of Systems Constitutional: Reports: no symptoms. Objective Last 24 Hrs of Vital Signs/I&O Vital Signs Date Time Temp Pulse Resp B/P B/P Pulse O2 O2 Flow FiO2 Mean Ox Delivery Rate 04/03 0000 Nasal 1.0L Cannula 04/02 2220 97.8 70 16 122/62 96 Nasal Cannula 04/02 1653 128/74 04/02 1600 94 Nasal 1.0L Cannula 04/02 1456 128/72 04/02 1451 97.5 80 20 128/72 98 Nasal 2.0L Cannula 04/02 1340 87 Room Air Room Air 04/02 1325 98 Nasal 1.0L Cannula 04/02 1042 86 110/62 04/02 1006 Nasal 1.0L Cannula 04/02 0902 108/54 04/02 0800 92 Nasal 1.0L Cannula 04/02 0655 97.5 85 20 108/54 95 Nasal 2.0L Cannula Intake & Output 04/03 0800 04/03 0000 04/02 1600 Intake Total 120 308.4 Output Total 300 Balance 120 8.4 Intake, IV 68.4 Intake, Oral 120 240 Output, Urine 300 Physical Exam General Appearance: Alert, Oriented X3, No Acute Distress Cardiovascular: Regular Rate, Normal S1, Normal S2 Lungs: crackles anteriorly Abdomen: No Tenderness Extremities: trace pedal edema on bilateral UE and 1+ edema on bilateral UE Current Medications: Current Medications Sig/Jaylon Start time Last Medication Dose Route Stop Time Status Admin Acetaminophen 650 MG Q6P PRN 03/24 1415 AC PO Aspirin 81 MG DAILY 03/24 1555 AC 04/01 PO 0759 Atorvastatin Calcium 80 MG 03/24 1700 AC 03/30 PO 1712 Benzonatate 100 MG TID 03/24 1509 AC 03/31 PO 1448 Cholecalciferol 1,000 IU DAILY 03/25 0900 AC 03/30 PO 1001 Digoxin 0.125 MG 03/31 1700 AC 04/02 PO 1653 Dobutamine HCl 250 MG Q10H 03/27 0930 DC 04/02 Dextrose/Water 250 ML IV 06 Docusate Sodium 100 MG BID 03/24 2100 AC 03/29 PO 205 Ferrous Sulfate 325 MG TID 04/01 0900 AC 04/01 PO 1119 Furosemide 60 MG BID 04/01 0900 AC 04/02 IV 2005 Guaifenesin 10 ML Q6P PRN 03/24 1715 AC PO Heparin Sodium 5,000 UNIT Q8 03/24 1421 AC 04/02 (Porcine) SC 2024 Metoprolol Tartrate 12.5 MG BID 03/24 2100 AC 04/02 PO 1456 Nystatin 1 MERE TID 04/01 1553 AC 04/02 TOP 2004 Omeprazole 40 MG BID 03/24 2100 AC 03/30 PO 1000 Polyethylene Glycol 17 GM DAILY 03/26 1048 AC 03/26 PO 1351 Senna/Docusate Sodium 2 TAB DAILY 03/26 1048 AC 03/30 PO 1000 Lines/Diet/Fluids Lines: peripheral lines Assessment/Plan Assessment: 83 year old female BIBA from snf for change in mental status with severe hypoglycemia. Patient has been refusing most of her oral meds, she has mostly been recieving only her IV meds. Problem List #VICTORIA on CKD -Low dose dobutamine drip was discontinued yesterday -Renal US; Right kidney atrophic without gross hydronephrosis. Left kidney not visualized due to limited view -AM labs pending. Creatinine improved to 2.2 from 2.3 yesterday -Vitals are stable -Will continue to monitor #Decompensated systolic CHF with anasarca -Anasarca markedly improved -ECHO shows a 30% EF with normal diastolic fuction -Low dose dobutamine drip discontinued yesterday -Continue Digoxin; she will be discharged 0.125mg EOD per cardiology -Continue lasix 60mg BID, hold for systolic BP <90mmg/hg per Cardio; She will be discharge on 60mg PO BID -Carmona was removed yesterday -Continue to trend renal function -Cont metoprolol, aspirin and statin -Will f/u sports book writer recommendations #Acute on Chronic normocytic anemia -She recieved a dose of Epogen 4000units x1 -Nephrology was consulted for this but they did not make any new recommendations -Will monitor with daily CBC #Diabetes mellitus with hypoglycemia-Resolved -Now on only dietary control -Levemir discontinued; please do not restart on discharge -Blood sugars stable, have remained under 200 -Poor PO intake overall -Accuchecks TIDAC/HS -HbA1c 5.9 #Hyperkalemia -Resolved #Atrial arrythmias -Cardiology following -ECHO LVEF 30%. -ACS ruled out #CAD -Continue metoprolol 12.5mg BID and crestor 20mg daily. #Poor oral intake -On ensure pudding to augment intake -Will monitor #Small venous stasis ulcer on back of rt lower leg -Healing -Keep area elevated as much as possible -Daily wound dressing Problem List: 1. Chronic kidney disease (CKD) 2. Acute renal failure 3. Anasarca 4. Dysrhythmia Pain Ratin Pain Location: na Pain Goal: Remain pain free Pain Plan: na Tomorrow's Labs & Rationales: cbc,bep
[2018-04-03 07:01] VITALS: BP 114/62
[2018-04-03 08:36] LABS: ABSOLUTE BASOPHIL COUNT 0 /CUMM (0.0-0.2); ABSOLUTE EOSINOPHIL COUNT 0.1 /CUMM (0.0-0.7); ABSOLUTE GRANULOCYTE CT 5.3 /CUMM (1.4-6.5); ABSOLUTE LYMPH COUNT 0.5 /CUMM (1.2-3.4); ABSOLUTE MONOCYTE COUNT 0.5 /CUMM (0.10-0.60); BASOPHIL % 0.3 % (0.0-2.0); EOSINOPHIL % 2.2 % (0-5); GRANULOCYTE % 81.6 % (42.2-75.2); HEMATOCRIT 27.6 % (37-47); MEAN CORPUSCULAR HGB 30.4 PG (27.0-31.0); MEAN CORPUSCULAR HGB CONC 32.8 G/DL (33.0-37.0); MEAN CORPUSCULAR VOLUME 92.7 FL (81.0-99.0); MEAN PLATELET VOLUME 7.1 FL (7.4-10.4); PLATELET COUNT 146 /CUMM (130-400); RBC DISTRIBUTION WIDTH 18.7 % (11.5-14.5); RED BLOOD CELL CT 2.98 /CUMM (4.20-5.40); WHITE BLOOD CELL COUNT 6.5 /CUMM (4.8-10.8)
[2018-04-03 14:12] VITALS: BP 102/60
[2018-04-03 23:14] VITALS: BP 88/56
[2018-04-04 06:57] VITALS: BP 100/64
--- NOTE | 2018-04-04 10:55 | PN- Housestaff ---
Seven MCCAULEY,[facility] 04/04/18 1054: Subjective Follow-up For: -VICTORIA on CKD -Atrial arrhythmia -Decompensated CHF Subjective: Afebrile and saturating well on 1 L of oxygen. The patient was mildly hypotensive during the night however improved to 100/60 this morning. She is laying in bed looks relaxed and comfortable and denies any current active complaints. Review of Systems Constitutional: Reports: no symptoms, see HPI. Objective Last 24 Hrs of Vital Signs/I&O Vital Signs Date Time Temp Pulse Resp B/P B/P Pulse O2 O2 Flow FiO2 Mean Ox Delivery Rate 04/04 0657 96.1 74 20 100/64 98 Nasal Cannula 04/04 0000 Nasal 1.0L Cannula 04/03 2314 98.1 78 20 88/56 97 Nasal Cannula 04/03 2114 77 88/56 04/03 1624 74 100/64 04/03 1600 Nasal 1.0L Cannula 04/03 1412 97.2 77 18 102/60 95 Nasal Cannula Intake & Output 04/04 1600 04/04 0800 04/04 0000 Intake Total 250 Output Total 100 Balance 150 Intake, Oral 250 Number 1 Bowel Movements Output, Urine 100 Patient 71.299 kg Weight Physical Exam General Appearance: Alert, Oriented X3, Cooperative, No Acute Distress Skin: No Rashes HEENT: Atraumatic, PERRLA, EOMI, Mucous Membr. moist/pink Neck: No JVD Cardiovascular: Regular Rate, Normal S1, Normal S2, 2/6 systolic murmur Lungs: Clear to Auscultation, decrease air-entry over lung base bilaterally Abdomen: Soft, No Tenderness Extremities: No Cyanosis, +1 bilateral LE edema Current Medications: Current Medications Sig/Jaylon Start time Last Medication Dose Route Stop Time Status Admin Acetaminophen 650 MG Q6P PRN 03/24 1415 AC PO Aspirin 81 MG DAILY 03/24 1555 AC 04/01 PO 0759 Atorvastatin Calcium 80 MG 03/24 1700 AC 03/30 PO 1712 Benzonatate 100 MG TID 03/24 1509 AC 03/31 PO 1448 Cholecalciferol 1,000 IU DAILY 03/25 0900 AC 03/30 PO 1001 Digoxin 0.125 MG 03/31 1700 AC 04/03 PO 1624 Docusate Sodium 100 MG BID 03/24 2100 AC 03/29 PO 2054 Ferrous Sulfate 325 MG TID 04/01 09 AC 04/01 PO 1119 Furosemide 60 MG 7:30 AM, & 4:30 PM 04/04 09 AC PO Furosemide 60 MG 0830,1630 04/03 1630 DC 04/03 IV 1623 Furosemide 60 MG BID 04/01 0900 DC 04/03 IV 0939 Guaifenesin 10 ML Q6P PRN 03/24 1715 AC PO Heparin Sodium 5,000 UNIT Q8 03/24 1421 AC 04/04 (Porcine) SC 0557 Lorazepam 0.5 MG ONCE ONE 04/03 2145 DC 04/03 IV 04/03 Metoprolol Tartrate 12.5 MG BID 03/24 2100 AC 04/02 PO 1456 Nystatin 1 MERE TID 04/01 1553 AC 04/03 TOP 2105 Omeprazole 40 MG BID 03/24 2100 AC 03/30 PO 1000 Polyethylene Glycol 17 GM DAILY 03/26 1048 AC 03/26 PO 1351 Senna/Docusate Sodium 2 TAB DAILY 03/26 1048 AC 03/30 PO 1000 Last 24 Hrs of Lab/Ambrose Results Last 24 Hrs of Labs/Mics: Laboratory Tests 04/04/18 06: Anion Gap 8, Estimated GFR 24 L, BUN/Creatinine Ratio 29.5 H, Magnesium 1.8 Assessment/Plan Assessment: 83-year-old female presented from correction secondary to AMS which was most likely secondary to severe hypoglycemia. 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 Renal ultrasound showed normal right renal, however the left cannot be visualized, and there was no hydronephrosis. Plan: #VICTORIA on CKD -At baseline, We'll continue to monitor #Decompensated systolic CHF with anasarca * ECHO shows a 30% EF with normal diastolic fuction * Currently saturating well on the liter of oxygen * Continue Digoxin; she will be discharged 0.125mg EOD per cardiology * Continue lasix 60mg BID, hold for systolic BP <90mmg/hg per Cardio; She will be discharge on 60mg PO BID * Cont metoprolol, aspirin and statin #Acute on Chronic normocytic anemia * S/p one dose of Epogen 4000units x1 * Will monitor with daily CBC #Diabetes mellitus with hypoglycemia-Resolved * Now on only dietary control * Poor PO intake overall * Accuchecks TIDAC/HS * HbA1c 5.9 #Hyperkalemia * Resolved #CAD * Continue metoprolol 12.5mg BID * Continue crestor 20mg daily. * Continue aspirin * Continue statin #Small venous stasis ulcer on back of rt lower leg * Healing * Keep area elevated as much as possible * Daily wound dressing DNR/DNI Diabetic diet DVT prophylaxis heparin subcutaneous Problem List: 1. Chronic kidney disease (CKD) Pain Ratin Pain Location: n/a Pain Goal: Remain pain free Pain Plan: See A&P Tomorrow's Labs & Rationales: No need for labs Babatunde,Namita 04/04/18 1152: Attending MD Review Statement Attending Statement Attending MD Statement: examined this patient, discuss w/resident/PA/THREE DIMENSIONAL MAP MODELER, agreed w/resident/PA/THREE DIMENSIONAL MAP MODELER, discussed with family, reviewed EMR data (avail), discussed with nursing, discussed with case mgmt, reviewed images, amended to note Attending Assessment/Plan: Patient labs and vitals stable. Appreciate cardiology recommendations. Respect famiy wishes. Awaitng bed availability [facility]. Follow up with case management regarding insurance issues.
[2018-04-04 14:04] VITALS: BP 116/60
[2018-04-04 22:42] VITALS: BP 88/52
[2018-04-05 00:20] VITALS: BP 112/58
[2018-04-05 06:37] VITALS: BP 96/54
--- NOTE | 2018-04-05 07:54 | PN- Housestaff ---
Markus MCCAULEY,[place] 04/05/18 0753: Subjective Follow-up For: -VICTORIA on CKD -Atrial arrhythmia -Decompensated CHF Complaints: no complaints Tele-Events Since Last Visit: SR, 1st degree AVB, 71-73, PACs Subjective: Patient seen and examined. Reports no compliants. AAOx3; Not cooperative with exam and is refusing to speak to me or the RN, she's upset She also continues to refuse her meds and food. Review of Systems Constitutional: Reports: no symptoms. Objective Last 24 Hrs of Vital Signs/I&O Vital Signs Date Time Temp Pulse Resp B/P B/P Pulse O2 O2 Flow FiO2 Mean Ox Delivery Rate 04/05 0949 98.3 70 20 94/60 / 0928 70 94/60 / 0637 98.3 75 20 96/54 95 Nasal Cannula 04/05 0020 73 112/58 / 0000 Nasal 1.0L Cannula 04/04 2242 97.9 75 20 88/52 96 Nasal Cannula 04/04 2145 71 88/50 /06 1817 77 106/72 04/04 1600 Nasal 1.0L Cannula 04/04 1445 75 116/60 05/06 1404 96.3 75 20 116/60 99 Nasal Cannula Intake & Output 04/05 1600 04/05 0800 05/ 0000 Intake Total 200 310 Output Total Balance 200 310 Intake, IV 10 Intake, Oral 200 300 Number 0 Bowel Movements Patient 159 lb Weight Weight Bed scale Measurement Method Physical Exam General Appearance: Alert, Oriented X3, Cooperative, No Acute Distress, not cooperative Skin: No Significant Lesion Cardiovascular: Regular Rate, Normal S1, Normal S2, with added beats Lungs: Scattered crackles anteriorly Abdomen: Normal Bowel Sounds, No Tenderness, firm Neurological: Normal Speech Extremities: 1+ pedal edema on both bilateral upper and lower extremities Current Medications: Current Medications Sig/Jaylon Start time Last Medication Dose Route Stop Time Status Admin Acetaminophen 650 MG Q6P PRN 03/24 1415 AC PO Aspirin 81 MG DAILY 03/24 1555 AC 04/04 PO 1445 Atorvastatin Calcium 80 MG 03/24 1700 AC 03/30 PO 1712 Benzonatate 100 MG TID 03/24 1509 AC 03/31 PO 1448 Cholecalciferol 1,000 IU DAILY 03/25 0900 AC 03/30 PO 1001 Digoxin 0.125 MG 169902 1700 AC 04/04 PO 1817 Docusate Sodium 100 MG BID 03/24 2100 AC 03/29 PO 2055 Ferrous Sulfate 325 MG TID 04/01 09 AC 04/01 PO 1119 Furosemide 60 MG 7:30 AM, & 4:30 PM 04/04 0900 AC 04/04 PO 1445 Guaifenesin 10 ML Q6P PRN 03/24 1715 AC PO Heparin Sodium 5,000 UNIT Q8 03/24 1421 AC 04/04 (Porcine) SC 2146 Metoprolol Tartrate 6.25 MG BID 04/05 09 AC PO Metoprolol Tartrate 12.5 MG BID 03/24 2100 DC 04/04 PO 1445 Nystatin 1 MERE TID 04/01 1553 AC 04/05 TOP 0953 Omeprazole 40 MG BID 03/24 2100 AC 03/30 PO 1000 Polyethylene Glycol 17 GM DAILY 03/26 1048 AC 03/26 PO 1351 Senna/Docusate Sodium 2 TAB DAILY 03/26 1048 AC 03/30 PO 1000 Last 24 Hrs of Lab/Ambrose Results Last 24 Hrs of Labs/Mics: Laboratory Tests 04/05/18 0730: Anion Gap 10, Estimated GFR 25 L, BUN/Creatinine Ratio 34.2 H, Magnesium 1.9, CBC w Diff NO MAN DIFF REQ, RBC 2.76 L, MCV 92.8, MCH 29.7, MCHC 31.9 L, RDW 18.4 H, MPV 7.7, Gran % 80.1 H, Lymphocytes % 7.8 L, Monocytes % 9.2, Eosinophils % 2.4, Basophils % 0.5, Absolute Granulocytes 5.4, Absolute Lymphocytes 0.5 L, Absolute Monocytes 0.6, Absolute Eosinophils 0.2, Absolute Basophils 0 Orders Fingersticks (last 24 hrs): <200 Lines/Diet/Fluids Lines: peripheral lines Assessment/Plan Assessment: 83-year-old female presented from assisted secondary to AMS which was most likely secondary to severe hypoglycemia. 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 Renal ultrasound showed normal right renal, however the left cannot be visualized, and there was no hydronephrosis. Plan: #VICTORIA on CKD * Markedly improved. Cr 1.9 today. At baseline * We'll continue to monitor #Decompensated systolic CHF with anasarca * ECHO shows a 30% EF with normal diastolic fuction * Currently saturating well on the liter of oxygen * Continue Digoxin; she will be discharged 0.125mg EOD per cardiology * Continue PO lasix 60mg BID, hold for systolic BP <90mmg/hg per Cardio * Cont metoprolol, aspirin and statin * No STEPHANY/ARB due to hyperkalemia #Acute on Chronic normocytic anemia * S/p one dose of Epogen 4000units x1 * H&H today is 8.2/25.6 * Will monitor CBC #Diabetes mellitus with hypoglycemia-Resolved * Now on only dietary control * Poor PO intake overall * Accuchecks TIDAC/HS * HbA1c 5.9 #Hyperkalemia * Resolved * No STEPHANY/ARB or potassium supplement due to hyperkalemia #CAD * Metoprolol dose from 12.5 BID to 6.5mg BID * Continue crestor 20mg daily * Continue aspirin * Continue statin * No STEPHANY/ARB or potassium supplement due to hyperkalemia #Urinary incontinence * Patient is incontinent but occassionally has retained urine requiring straight catheterization. * Please monitor urine output and catheterize if any residuals #Small ulcer on back of rt lower leg * Healed She continues to refuse her medications and food. Plan was to DC her over the weekend but due to insurance issues she was not able to leave to SNF. We are awaiting insurance clearance today and hopefully she will be able to leave. strategic account manager working on it. Problem List: 1. Acute renal failure 2. Chronic kidney disease (CKD) 3. Hyperkalemia 4. Anasarca 5. Dysrhythmia 6. Hypoglycemia Pain Ratin Pain Location: na Pain Goal: Remain pain free Pain Plan: na Tomorrow's Labs & Rationales: lisa, ravinder Oh MD,[place] 04/05/18 1501: Attending MD Review Statement Attending Statement Attending MD Statement: examined this patient, discuss w/resident/PA/FLIGHT PARAMEDIC, agreed w/resident/PA/FLIGHT PARAMEDIC, discussed with family, reviewed EMR data (avail), discussed with nursing, discussed with case mgmt, reviewed images Attending Assessment/Plan: 83-year-old female fairly complex with multiple medical problems including CHF, COPD, diabetes, coronary artery disease with chronic systolic heart failure. She has hyperkalemia preventing the use of an stephany or arb and she is on maximal medical therapy in terms of low-dose beta makeda, Lasix and digoxin, aspirin and statin. However she is very angry and upset. She is upset about being here and upset about having to go to [facility] with the plan to transition to long-term care. She continuously refuses medications and her son is well aware of that fact. At this point given her age and comorbidities, the plan is for conservative medical treatment. They are not interested in any kind of invasive procedure. She is going to [place] with the plan to slowly coax her to take her medications there. The nursing and case management staff feel that given that her son works at [facility], they will have better luck with convincing her to take her medications. We have asked for repeat labs in a week to keep her watch and her crit and renal function. The family understands that the overall prognosis is poor and they may even transition to comfort measures if she continues to refuse her medications while at [facility].
[2018-04-05 08:08] LABS: ABSOLUTE BASOPHIL COUNT 0 /CUMM (0.0-0.2); ABSOLUTE EOSINOPHIL COUNT 0.2 /CUMM (0.0-0.7); ABSOLUTE GRANULOCYTE CT 5.4 /CUMM (1.4-6.5); ABSOLUTE LYMPH COUNT 0.5 /CUMM (1.2-3.4); ABSOLUTE MONOCYTE COUNT 0.6 /CUMM (0.10-0.60); BASOPHIL % 0.5 % (0.0-2.0); EOSINOPHIL % 2.4 % (0-5); GRANULOCYTE % 80.1 % (42.2-75.2); HEMATOCRIT 25.6 % (37-47); MEAN CORPUSCULAR HGB 29.7 PG (27.0-31.0); MEAN CORPUSCULAR HGB CONC 31.9 G/DL (33.0-37.0); MEAN CORPUSCULAR VOLUME 92.8 FL (81.0-99.0); MEAN PLATELET VOLUME 7.7 FL (7.4-10.4); PLATELET COUNT 125 /CUMM (130-400); RBC DISTRIBUTION WIDTH 18.4 % (11.5-14.5); RED BLOOD CELL CT 2.76 /CUMM (4.20-5.40); WHITE BLOOD CELL COUNT 6.8 /CUMM (4.8-10.8)
[2018-04-05 09:28] VITALS: BP 94/60
[2018-04-05 09:49] VITALS: BP 94/60
[2018-04-05] MEDS ORDERED: METOPROLOL TART25 M1 PO (09:51)
[2018-04-05 15:09] VITALS: BP 102/60
[2018-04-05 16:49] VITALS: BP 94/60
== END 2018-04-05 17:30 | DRG 682 ==
LOC: ERH 06:46 → 1NO 12:33 → ERHI 12:33 → EDBEDREQ 12:54 → ENTRNSPT 13:32 → EDTRNSPT 13:43 → EDTRNSPTSTS 13:43 → 1NO 13:50 → CMPTRNSPT 14:07 → 1NO 03-30 09:48 → ENPENDDIS 04-02 10:12 → 1NO 04-05 10:00 → CRI 04-05 10:00 → 1NO 04-05 17:30
PROVIDERS: Dermatology; Emergency Medicine; Student in an Organized Health Care Education/Training Program
DX: N17.9 Acute kidney failure, unspecified (principal); I50.23 Acute on chronic systolic (congestive) heart failure; E11.649 Type 2 diabetes mellitus with hypoglycemia without coma; E87.5 Hyperkalemia; I48.92 Unspecified atrial flutter; I08.1 Rheumatic disorders of both mitral and tricuspid valves; I13.0 Hypertensive heart and chronic kidney disease with heart failure and stage 1 through stage 4 chronic kidney disease, or unspecified chronic kidney disease; L97.819 Non-pressure chronic ulcer of other part of right lower leg with unspecified severity; R00.8 Other abnormalities of heart beat; R41.82 Altered mental status, unspecified; Z79.4 Long term (current) use of insulin; R60.0 Localized edema; D64.9 Anemia, unspecified; N18.4 Chronic kidney disease, stage 4 (severe); Z79.82 Long term (current) use of aspirin; R32 Unspecified urinary incontinence; I27.20 Pulmonary hypertension, unspecified; Z66 Do not resuscitate; I25.10 Atherosclerotic heart disease of native coronary artery without angina pectoris; Z95.5 Presence of coronary angioplasty implant and graft; Z87.891 Personal history of nicotine dependence
CPT/HCPCS: 1NP; 36415; 36592; 71045; 71046; 74018; 76775; 81001; 82436; 82570; 83010; 87086; 93005; 93010; 93306; 97110-GO; 97161-GP; J0610; J0885-EC; J1644; J1815; J1940; J2060; J3490; J7060